=== PATIENT | female | born 1970 | race African-American/Black ===

== ENCOUNTER 2017-09-16 16:43 | Emergency (ER) | payer SELFPAY ==
[2017-09-16] MEDS ORDERED: MORPHINE 4 MG/ML SYR ONE (17:58)
[2017-09-16] MEDS ORDERED: NA CHLORIDE 0.9% 1,000 ML ONE (17:58)
[2017-09-16] MEDS ORDERED: ONDANSETRON 4 MG/2 ML VIAL ONE (17:58)
[2017-09-16 18:14] LABS: Absolute Lymphocytes (CBC) 1.6 K/uL (0.7-4.9); Absolute Monocytes 0.6 K/uL (0.1-1.3); Absolute Neutrophil 2.8 K/uL (1.8-8.0); Basophils % 0.6 % (0-1.3); Eosinophils % 7.1 % (0-4.4); Hematocrit 34.7 % (36.0-45.0); Lymphocytes % 29.3 % (15.3-44.8); MCH 23.3 pg (27.0-35.0); MCV 70.9 fL (80-100); MPV 7.6 fL (7.6-11.3); Monocytes % 10.5 % (3.3-12.3); RBC Red Blood Cell Count 4.89 M/uL (3.86-4.86)
[2017-09-16 18:27] LABS: Bicarbonate 30 mEq/L (21-31); Glucose Level 142 mg/dL (65-120); Lipase 26 U/L (22-51); Potassium 3.4 mEq/L (3.6-5.0); Sodium Level 135 mEq/L (135-145)
[2017-09-16 18:33] LABS: ALT/SGPT 22 IU/L (10-60); AST/SGOT 23 IU/L (10-42); Albumin 3.7 g/dL (3.2-5.5); Alkaline Phosphatase 76 IU/L (42-121); BUN Blood Urea Nitrogen 12 mg/dL (6-20); Bilirubin Direct < 0.1 mg/dL (0-0.2); Bilirubin Total 0.4 mg/dL (0.3-1.2); Protein, Total 7.7 g/dL (6.0-8.3)
[2017-09-16 19:04] LABS: Urine Blood NEGATIVE (NEG); Urine Glucose NEGATIVE (NEG); Urine Protein NEGATIVE (NEG); Urine Specific Gravity 1.015 (1.005-1.030)
[2017-09-16 19:24] LABS: Urine Bacteria <20 /HPF (<20); Urine Culture Reflex Order NOT NEEDED; Urine RBC <5 /HPF (NONE SEEN)
--- NOTE | 2017-09-16 19:36 | RAD REPORT ---
EXAM DESCRIPTION: CT - Abdomen Pelvis W Contrast - 09/16/2017 7:16 pm CLINICAL HISTORY: Abdominal pain with nausea and vomiting. COMPARISON: April 2016 TECHNIQUE: Computed axial tomography of the abdomen pelvis was obtained. 100 cc Isovue-300 was admin istered intravenously. Oral contrast was not requested which limits evaluation of bowel. All CT scans are performed using dose optimization technique as appropriate and may include automated exposure control or mA/KV adjustment according to patient size. FINDINGS: The liver has a diminished attenuation consistent fatty infiltration. Spleen, pancreas, adrenal and left kidney appear unremarkable. 17 millimeter right renal cyst is seen . There is no evidence of diverticulitis. The appendix is normal. A small umbilical hernia contains fat. A moderate amount stool is present throughout the colon IMPRESSION: Moderate amount of stool throughout the colon Fatty infiltration liver
--- NOTE | 2017-09-16 20:10 | ER ---
Nurse's Notes [facility] Name: Ever Cruz Age: 47 yrs Sex: Female : 1970 Arrival Date: 09/16/2017 Time: 16:48 Bed 17 Private MD: Out, [facility] Diagnosis: Nausea and vomiting Presentation: 09/16 16:55 Presenting complaint: Patient states: Nausea x 2 weeks. Seen by PCP on . aj Reports increased anxiety and inability to keep down food today. Transition of care: patient was not received from another setting of care. Onset of symptoms was September 01, 2017. Risk Assessment: Do you want to hurt yourself or someone else? Patient reports no desire to harm self or others. Initial Sepsis Screen: Does the patient meet any 2 criteria? No. Patient's initial sepsis screen is negative. Does the patient have a suspected source of infection? No. Patient's initial sepsis screen is negative. Care prior to arrival: None. 16:55 Method Of Arrival: Ambulatory 16:55 Acuity: LORNA 3 aj Triage Assessment: 16:57 General: Appears in no apparent distress. comfortable, Behavior is calm, cooperative, aj appropriate for age. Pain: Denies pain. Neuro: Level of Consciousness is awake, alert, obeys commands, Oriented to person, place, time, situation, Appropriate for age. Respiratory: Airway is patent Respiratory effort is even, unlabored, Respiratory pattern is regular, symmetrical. GI: Reports nausea, vomiting. Derm: Skin is intact, is healthy with good turgor, Skin is pink, warm \T\ dry. normal. 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 - Social history:: Smoking status: Patient/guardian denies using tobacco. - Ebola Screening: : Patient negative for fever greater than or equal to 101.5 degrees Fahrenheit, and additional compatible Ebola Virus Disease symptoms Patient denies exposure to infectious person Patient denies travel to an Ebola-affected area in the 21 days before illness onset No symptoms or risks identified at this time. Screenin:23 Abuse screen: Denies threats or abuse. Denies injuries from another. Nutritional bs1 screening: No deficits noted. Tuberculosis screening: No symptoms or risk factors identified. Fall Risk None identified. Assessment: 18:10 General: Appears in no apparent distress. ill, Behavior is calm, cooperative, mb3 appropriate for age, drowsy. Pain: Complains of pain in abdomen. Neuro: No deficits noted. Cardiovascular: No deficits noted. Respiratory: No deficits noted. GI: Abdomen is round obese, Bowel sounds present X 4 quads. Abd is soft and non tender Reports nausea, vomiting. : No signs and/or symptoms were reported regarding the genitourinary system. Derm: No signs and/or symptoms reported regarding the dermatologic system. Musculoskeletal: No signs and/or symptoms reported regarding the musculoskeletal system. 20:04 Reassessment: Patient appears in no apparent distress at this time. Patient and/or mb3 family updated on plan of care and expected duration. Pain level reassessed. Patient is alert, oriented x 3, equal unlabored respirations, skin warm/dry/pink. 20:25 Reassessment: Patient instructed on discharge instructions. Patient states bs1 understanding, and need to follow up with PCP. 20:25 Reassessment: Patient appears in no apparent distress at this time. Patient and/or bs1 family updated on plan of care and expected duration. Pain level reassessed. Patient is alert, oriented x 3, equal unlabored respirations, skin warm/dry/pink. Patient states feeling better. Vital Signs: 16:57 BP 155 / 88; Pulse 93; Resp 15; Temp 98.8; Pulse Ox 98% on R/A; Weight 122.47 kg; aj Height 5 ft. 7 in. (170.18 cm); 18:54 BP 138 / 82; Pulse 88; Resp 16; Pulse Ox 97% on R/A; mb3 20:20 BP 136 / 85; Pulse 76; Resp 16 S; Temp 97.9(O); Pulse Ox 97% on R/A; Pain 3/10; bs1 16:57 Body Mass Index 42.29 (122.47 kg, 170.18 cm) aj ED Course: 16:48 Patient arrived in ED. sb2 16:49 Out, [facility] is Private Physician. sb2 16:56 Triage completed. aj 16:57 Arm band placed on left wrist. Patient placed in waiting room, Patient notified of wait aj time. 17:36 Blayne Castaneda, WES is PHCP. pm1 17:36 Remington Martinez MD is Attending Physician. pm1 17:52 Joel Gibson, VASILIY is Primary Nurse. mb3 18:00 Inserted saline lock: 22 gauge in right antecubital area, using aseptic technique. mb3 19:16 CT completed. Patient moved to CT via wheelchair. Patient moved back from CT. mw3 19:17 CT Abd/Pelvis - W/Contrast: IV contrast only In Process Unspecified. EDMS 19:30 Patient has correct armband on for positive identification. Bed in low position. Call bs1 light in reach. Side rails up X 1. Pulse ox on. NIBP on. 20:24 No provider procedures requiring assistance completed. IV discontinued, bleeding bs1 controlled, No redness/swelling at site. Pressure dressing applied. Administered Medications: 18:05 Drug: NS 0.9% 1000 ml Route: IV; Rate: 1000 ml; Site: right antecubital; mb3 20:26 Follow up: IV Status: Completed infusion bs1 18:05 Drug: Zofran 4 mg Route: IVP; Site: right antecubital; mb3 20:27 Follow up: Response: No adverse reaction bs1 18:05 Drug: morphine 4 mg Route: IVP; Site: right antecubital; mb3 20:27 Follow up: Response: No adverse reaction bs1 Outcome: 20:10 Discharge ordered by . pm1 20:24 Discharged to home ambulatory, with significant other. bs1 20:24 Condition: stable 20:24 Discharge instructions given to patient, Instructed on discharge instructions, follow up and referral plans. medication usage, Demonstrated understanding of instructions, follow-up care, medications, Prescriptions given X 3. 20:27 Patient left the ED. bs1 Signatures: Dispatcher [employer] EDYvonne Pryor, RN RN Blayne Reyes, GENERAL FOUNDRY WORKER GENERAL FOUNDRY WORKER pm1 Yolie White RN RN bs1 Luz Hamilton sb2 Joel Gibson RN RN mb3 Leatha Luna mw3
--- NOTE | 2017-09-16 20:11 | EDPHYS ---
Physician Documentation [facility] Name: Ever Cruz Age: 47 yrs Sex: Female : 1970 Arrival Date: 09/16/2017 Time: 16:48 Bed 17 Private MD: Out, [facility] ED Physician Remington Martinez HPI: 09/16 18:00 This 47 yrs old Black Female presents to ER via Ambulatory with complaints of pm1 Nausea/Vomiting. 18:00 The patient presents to the emergency department with nausea, vomiting. Onset: The pm1 symptoms/episode began/occurred 2 week(s) ago. Possible causes: unknown. The symptoms are aggravated by food , The symptoms are alleviated by nothing. Associated signs and symptoms: Pertinent positives: abdominal pain, nausea, vomiting, Pertinent negatives: dysuria, fever. Severity of symptoms: in the emergency department the symptoms are unchanged. The patient has not experienced similar symptoms in the past. The patient has been recently seen by a physician: the patient's primary care provider, 2 day(s) ago, with similar presenting complaints, No medications given to the patient. 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 - Social history:: Smoking status: Patient/guardian denies using tobacco. - Ebola Screening: : Patient negative for fever greater than or equal to 101.5 degrees Fahrenheit, and additional compatible Ebola Virus Disease symptoms Patient denies exposure to infectious person Patient denies travel to an Ebola-affected area in the 21 days before illness onset No symptoms or risks identified at this time. ROS: 18:00 Constitutional: Negative for fever, chills, and weight loss, Eyes: Negative for injury, pm1 pain, redness, and discharge, ENT: Negative for injury, pain, and discharge, Neck: Negative for injury, pain, and swelling, Cardiovascular: Negative for chest pain, palpitations, and edema, Respiratory: Negative for shortness of breath, cough, wheezing, and pleuritic chest pain. 18:00 Back: Negative for injury and pain, : Negative for injury, bleeding, discharge, and swelling, MS/Extremity: Negative for injury and deformity, Skin: Negative for injury, rash, and discoloration, Neuro: Negative for headache, weakness, numbness, tingling, and seizure. 18:00 Abdomen/GI: Positive for abdominal pain, nausea and vomiting, Negative for diarrhea, constipation. Exam: 18:00 Constitutional: This is a well developed, well nourished patient who is awake, alert, pm1 and in no acute distress. Head/Face: Normocephalic, atraumatic. Eyes: Pupils equal round and reactive to light, extra-ocular motions intact. Lids and lashes normal. Conjunctiva and sclera are non-icteric and not injected. Cornea within normal limits. Periorbital areas with no swelling, redness, or edema. ENT: Nares patent. No nasal discharge, no septal abnormalities noted. Tympanic membranes are normal and external auditory canals are clear. Oropharynx with no redness, swelling, or masses, exudates, or evidence of obstruction, uvula midline. Mucous membranes moist. Neck: Trachea midline, no thyromegaly or masses palpated, and no cervical lymphadenopathy. Supple, full range of motion without nuchal rigidity, or vertebral point tenderness. No Meningismus. Chest/axilla: Normal chest wall appearance and motion. Nontender with no deformity. No lesions are appreciated. Cardiovascular: Regular rate and rhythm with a normal S1 and S2. No gallops, murmurs, or rubs. Normal PMI, no JVD. No pulse deficits. Respiratory: Lungs have equal breath sounds bilaterally, clear to auscultation and percussion. No rales, rhonchi or wheezes noted. No increased work of breathing, no retractions or nasal flaring. Abdomen/GI: Soft, non-tender, with normal bowel sounds. No distension or tympany. No guarding or rebound. No evidence of tenderness throughout. Back: No spinal tenderness. No costovertebral tenderness. Full range of motion. Skin: Warm, dry with normal turgor. Normal color with no rashes, no lesions, and no evidence of cellulitis. MS/ Extremity: Pulses equal, no cyanosis. Neurovascular intact. Full, normal range of motion. 18:00 Neuro: Orientation: is normal, Motor: moves all fours, strength is normal, strength is 5/5 in all extremities, Gait: is steady, at a normal pace, without difficulty. Vital Signs: 16:57 BP 155 / 88; Pulse 93; Resp 15; Temp 98.8; Pulse Ox 98% on R/A; Weight 122.47 kg; aj Height 5 ft. 7 in. (170.18 cm); 18:54 BP 138 / 82; Pulse 88; Resp 16; Pulse Ox 97% on R/A; mb3 20:20 BP 136 / 85; Pulse 76; Resp 16 S; Temp 97.9(O); Pulse Ox 97% on R/A; Pain 3/10; bs1 16:57 Body Mass Index 42.29 (122.47 kg, 170.18 cm) aj MDM: 17:36 Patient medically screened. pm1 20:08 Data reviewed: vital signs. Data interpreted: Pulse oximetry: on room air is 97 %. pm1 Interpretation: normal. Counseling: I had a detailed discussion with the patient and/or guardian regarding: the historical points, exam findings, and any diagnostic results supporting the discharge/admit diagnosis, lab results, radiology results, the need for outpatient follow up, to return to the emergency department if symptoms worsen or persist or if there are any questions or concerns that arise at home. 20:08 ED course: Patient nausea resolved. Patient feels hungry and ready to go eat. pm1 09/16 17:48 Order name: Basic Metabolic Panel; Complete Time: 19:27 pm09/16 17:48 Order name: CBC with Diff; Complete Time: 19: pm09/16 17:48 Order name: Creatinine for Radiology; Complete Time: 19:27 pm09/16 17:48 Order name: Hepatic Function; Complete Time: 19:27 pm09/16 17:48 Order name: Lipase; Complete Time: 19:27 pm09/16 17:48 Order name: Urine Microscopic Only; Complete Time: 19:27 pm1 09/16 17:48 Order name: Urine Test (obtain specimen) pm1 09/16 17:48 Order name: IV Saline Lock; Complete Time: 18:23 pm1 09/16 17:48 Order name: CT Abd/Pelvis - W/Contrast: IV contrast only; Complete Time: 19:40 pm1 09/16 18:59 Order name: Urine Dipstick--Ancillary (enter results); Complete Time: 19:27 eb 09/16 18:59 Order name: Urine --Ancillary (enter results); Complete Time: 19:27 eb 09/16 17:48 Order name: Labs collected and sent; Complete Time: 18:23 pm1 09/16 17:48 Order name: Urine Dipstick-Ancillary (obtain specimen) pm1 Administered Medications: 18:05 Drug: NS 0.9% 1000 ml Route: IV; Rate: 1000 ml; Site: right antecubital; mb3 20:26 Follow up: IV Status: Completed infusion bs1 18:05 Drug: Zofran 4 mg Route: IVP; Site: right antecubital; mb3 20:27 Follow up: Response: No adverse reaction bs1 18:05 Drug: morphine 4 mg Route: IVP; Site: right antecubital; mb3 20:27 Follow up: Response: No adverse reaction bs1 Disposition: 09/17 07:58 Co-signature as Attending Physician, Remington Martinez MD. Disposition: 09/16/17 20:10 Discharged to Home. Impression: Nausea and vomiting. - Condition is Stable. - Discharge Instructions: Nausea and Vomiting, Viral Gastroenteritis. - Prescriptions for Zofran 4 mg Oral Tablet - take 1 tablet by ORAL route every 8 hours As needed; 20 tablet. Phenergan 25 mg Rectal Suppository - insert 1 suppository by RECTAL route every 6 hours As needed; 12 suppository. Bentyl 20 mg Oral Tablet - take 1 tablet by ORAL route every 6 hours As needed; 20 tablet. - Medication Reconciliation Form, Thank You Letter, Antibiotic Education form. - Follow up: Emergency Department; When: As needed; Reason: Worsening of condition. Follow up: Private Physician; When: 2 - 3 days; Reason: Recheck today's complaints, Continuance of care, Re-evaluation by your physician. - Problem is new. - Symptoms have improved. Signatures: Dispatcher [employer] EDMS Yvonne Wisdom RN RN Blayne Reyes, WES FRENCH COMBER pm1 Remington Martinez MD MD gs Salazar, Brittany RN RN bs1 Joel Gibson RN RN mb3 Corrections: (The following items were deleted from the chart) 09/16 20:27 20:10 09/16/2017 20:10 Discharged to Home. Impression: Nausea and vomiting. Condition bs1 is Stable. Forms are Medication Reconciliation Form, Thank You Letter, Antibiotic Education, Prescription Opioid Use. Follow up: Emergency Department; When: As needed; Reason: Worsening of condition. Follow up: Private Physician; When: 2 - 3 days; Reason: Recheck today's complaints, Continuance of care, Re-evaluation by your physician. Problem is new. Symptoms have improved. pm1
[2017-09-16 21:08] VITALS: O2SAT 97
[2017-09-16 21:09] VITALS: BP 136/85; TEMP 97.9
== END 2017-09-16 20:27 | disposition home or self-care (01) ==
LOC: ER 16:43
DX: R11.2 Nausea with vomiting, unspecified (principal); I10 Essential (primary) hypertension; E11.9 Type 2 diabetes mellitus without complications
CPT/HCPCS: 36415; 74177; 80048; 80076; 81003; 81015; 81025; 83690; 85025; 96361; 96374; 96375; 99284; J2405; J7030; Q9967

== ENCOUNTER 2018-05-13 21:52 | Emergency (ER) | payer SELFPAY ==
[2018-05-13 22:35] LABS: Absolute Lymphocytes (CBC) 1.4 K/uL (0.7-4.9); Absolute Monocytes 0.4 K/uL (0.1-1.3); Basophils % 0.5 % (0-1.3); Eosinophils % 2.5 % (0-4.4); Hematocrit 36.1 % (36.0-45.0); Lymphocytes % 19.9 % (15.3-44.8); MPV 7.6 fL (7.6-11.3); Monocytes % 5.7 % (3.3-12.3); RBC Red Blood Cell Count 4.88 M/uL (3.86-4.86)
[2018-05-13 22:40] LABS: Protime INR 1.01
[2018-05-13 22:53] LABS: ALT/SGPT 17 U/L (12-78); AST/SGOT 8 U/L (15-37); Albumin 3.1 g/dL (3.4-5.0); Alkaline Phosphatase 119 U/L (45-117); BUN Blood Urea Nitrogen 14 mg/dL (7-18); Bicarbonate 27 mmol/L (21-32); Bilirubin Direct < 0.1 mg/dL (0-0.2); Bilirubin Total 0.2 mg/dL (0.2-1.0); Glucose Level 298 mg/dL (74-106); Magnesium 2.2 mg/dL (1.8-2.4); NT PRO-BNP 50 pg/mL (<125); Potassium 3.9 mmol/L (3.5-5.1); Protein, Total 7.5 g/dL (6.4-8.2); Sodium Level 136 mmol/L (136-145); Troponin (Emerg Dept Use Only) < 0.02 ng/mL (0.0-0.045)
[2018-05-13] MEDS ORDERED: LORAZEPAM 0.5 MG TABLET ONE (22:56)
--- NOTE | 2018-05-13 23:32 | EDPHYS ---
Physician Documentation [facility] Name: Ever Cruz Age: 47 yrs Sex: Female : 1970 Arrival Date: 05/13/2018 Time: 21:54 Bed 16 Private MD: ED Physician Luis Zamarripa HPI: 05/13 22:38 This 47 yrs old Black Female presents to ER via Ambulatory with complaints of Chest snw Pain. 22:38 The patient or guardian reports chest pain that is located primarily in the anterior snw chest wall, bilaterally. Onset: suddenly, today, and became persistent. The pain does not radiate. Associated signs and symptoms: Pertinent positives: nausea. The chest pain is described as aching. Duration: The patient or guardian reports a single episode. Severity of pain: At its worst the pain was moderate. The patient has experienced similar episodes in the past, multiple times. It is unknown whether or not the patient has recently seen a physician. Historical: - Allergies: 21:57 No Known Allergies; aj1 - PMHx: 21:57 Diabetes - NIDDM; Hypertension; knee pain; aj1 ROS: 22:38 Constitutional: Negative for fever, chills, and weight loss, Eyes: Negative for injury, snw pain, redness, and discharge, ENT: Negative for injury, pain, and discharge, Neck: Negative for injury, pain, and swelling, Cardiovascular: Negative for palpitations and edema, positive for chest pain Respiratory: Negative for shortness of breath, cough, wheezing, and pleuritic chest pain, Abdomen/GI: Negative for abdominal pain, nausea, vomiting, diarrhea, and constipation, Back: Negative for injury and pain, : Negative for injury, bleeding, discharge, and swelling, MS/Extremity: Negative for injury and deformity, Skin: Negative for injury, rash, and discoloration, Neuro: Negative for headache, weakness, numbness, tingling, and seizure. Exam: 22:37 Constitutional: This is a well developed, well nourished patient who is awake, alert, snw and in no acute distress. Head/Face: Normocephalic, atraumatic. Eyes: Pupils equal round and reactive to light, extra-ocular motions intact. Lids and lashes normal. Conjunctiva and sclera are non-icteric and not injected. Cornea within normal limits. Periorbital areas with no swelling, redness, or edema. ENT: Nares patent. No nasal discharge, no septal abnormalities noted. Tympanic membranes are normal and external auditory canals are clear. Oropharynx with no redness, swelling, or masses, exudates, or evidence of obstruction, uvula midline. Mucous membranes moist. Neck: Trachea midline, no thyromegaly or masses palpated, and no cervical lymphadenopathy. Supple, full range of motion without nuchal rigidity, or vertebral point tenderness. No Meningismus. Chest/axilla: Normal chest wall appearance and motion. Nontender with no deformity. No lesions are appreciated. Cardiovascular: Regular rate and rhythm with a normal S1 and S2. No gallops, murmurs, or rubs. Normal PMI, no JVD. No pulse deficits. Respiratory: Lungs have equal breath sounds bilaterally, clear to auscultation and percussion. No rales, rhonchi or wheezes noted. No increased work of breathing, no retractions or nasal flaring. Abdomen/GI: Soft, non-tender, with normal bowel sounds. No distension or tympany. No guarding or rebound. No evidence of tenderness throughout. Back: No spinal tenderness. No costovertebral tenderness. Full range of motion. Skin: Warm, dry with normal turgor. Normal color with no rashes, no lesions, and no evidence of cellulitis. MS/ Extremity: Pulses equal, no cyanosis. Neurovascular intact. Full, normal range of motion. Neuro: Awake and alert, GCS 15, oriented to person, place, time, and situation. Cranial nerves II-XII grossly intact. Motor strength 5/5 in all extremities. Sensory grossly intact. Cerebellar exam normal. Normal gait. 22:37 Psych: Behavior/mood is pleasant, anxious, Affect is animated, Oriented to person, place, time. Vital Signs: 21:57 BP 146 / 87; Pulse 97; Resp 18; Temp 98.8; Pulse Ox 97% on R/A; Weight 117.93 kg (R); aj1 Height 5 ft. 7 in. (170.18 cm) (R); Pain 9/10; 23:00 BP 144 / 76; Pulse 94; Resp 16; Pulse Ox 95% on R/A; jb4 21:57 Body Mass Index 40.72 (117.93 kg, 170.18 cm) aj1 MDM: 22:04 Patient medically screened. ajit 23:32 The patient was not given aspirin in the Emergency Department. Patient reports taking snw aspirin within the past 24 hours. Data reviewed: vital signs, nurses notes. Data interpreted: Pulse oximetry: on room air is 97 %. Interpretation: acceptable. Counseling: I had a detailed discussion with the patient and/or guardian regarding: the historical points, exam findings, and any diagnostic results supporting the discharge/admit diagnosis, the presence of at least one elevated blood pressure reading (>120/80) during this emergency department visit, lab results, radiology results, the need for outpatient follow up, to return to the emergency department if symptoms worsen or persist or if there are any questions or concerns that arise at home. Response to treatment: the patient's symptoms have markedly improved after treatment, and as a result, I will discharge patient. 05/13 22:00 Order name: Basic Metabolic Panel snw 05/13 22:00 Order name: CBC with Diff snw 05/13 22:00 Order name: LFT's snw 05/13 22:00 Order name: Magnesium snw 05/13 22:00 Order name: NT PRO-BNP snw 05/13 22:00 Order name: PT-INR; Complete Time: 22:47 snw 05/13 22:00 Order name: Troponin (emerg Dept Use Only); Complete Time: 22:56 snw 05/13 22:00 Order name: XRAY Chest (1 view) snw 05/13 22:02 Order name: Basic Metabolic Panel; Complete Time: 22:56 EDMS 05/13 22:02 Order name: CBC with Automated Diff; Complete Time: 22:40 EDMS 05/13 22:02 Order name: Liver (Hepatic) Function; Complete Time: 22:56 EDMS 05/13 22:02 Order name: Magnesium; Complete Time: 22:56 EDMS 05/13 22:02 Order name: NT PRO-BNP; Complete Time: 22:56 EDMS 05/13 22:00 Order name: EKG; Complete Time: 22:02 snw 05/13 22:00 Order name: Cardiac monitoring; Complete Time: 22:10 snw 05/13 22:00 Order name: EKG - Nurse/Tech; Complete Time: 22:09 snw 05/13 22:00 Order name: IV Saline Lock; Complete Time: 22:40 snw 05/13 22:00 Order name: Labs collected and sent; Complete Time: 22:41 snw 05/13 22:00 Order name: O2 Per Protocol; Complete Time: 22:10 snw 05/13 22:00 Order name: O2 Sat Monitoring; Complete Time: 22:10 snw Administered Medications: 22:49 Drug: Ativan 1 mg Route: PO; jb4 23:50 Follow up: Response: No adverse reaction; Marked relief of symptoms jb4 Disposition: 05/14 09:04 Co-signature as Attending Physician, Luis Zamarripa MD I agree with the assessment and ajit plan of care. Disposition: 05/13/18 23:31 Discharged to Home. Impression: Chest pain, unspecified. - Condition is Stable. - Discharge Instructions: Nonspecific Chest Pain, Hypertension, Aspirin and Your Heart. - Medication Reconciliation Form, Thank You Letter, Antibiotic Education, Prescription Opioid Use, Work release form form. - Follow up: Emergency Department; When: As needed; Reason: Worsening of condition. Follow up: Private Physician; When: 1 - 2 days; Reason: Recheck today's complaints, Continuance of care, Re-evaluation by your physician. Signatures: Dispatcher [employer] Tonya Alcantara RN RN aj1 Luis Zamarripa MD MD cha Therrien, Shelly, HYDRO GENERATION SUPERVISOR-C HYDRO GENERATION SUPERVISOR-Csnw Den Worthy RN RN jb4 Corrections: (The following items were deleted from the chart) 05/13 23:51 23:31 05/13/2018 23:31 Discharged to Home. Impression: Chest pain, unspecified. jb4 Condition is Stable. Forms are Medication Reconciliation Form, Thank You Letter, Antibiotic Education, Prescription Opioid Use. Follow up: Emergency Department; When: As needed; Reason: Worsening of condition. Follow up: Private Physician; When: 1 - 2 days; Reason: Recheck today's complaints, Continuance of care, Re-evaluation by your physician. snw
--- NOTE | 2018-05-13 23:32 | ER ---
Nurse's Notes [facility] Name: Ever Cruz Age: 47 yrs Sex: Female : 1970 Arrival Date: 05/13/2018 Time: 21:54 Bed 16 Private MD: Diagnosis: Chest pain, unspecified Presentation: 05/13 21:55 Presenting complaint: Patient states: Substernal chest pain that started today. Patient aj1 states that she had a similar episode one week ago. reports dizziness, nausea. Denies SOB, vomiting. Transition of care: patient was not received from another setting of care. Onset of symptoms was May 13, 2018. Risk Assessment: Do you want to hurt yourself or someone else? Patient reports no desire to harm self or others. Initial Sepsis Screen: Does the patient meet any 2 criteria? No. Patient's initial sepsis screen is negative. Does the patient have a suspected source of infection? No. Patient's initial sepsis screen is negative. Care prior to arrival: None. 21:55 Method Of Arrival: Ambulatory aj 21:55 Acuity: LORNA 3 aj1 Triage Assessment: 21:57 General: Appears in no apparent distress. uncomfortable, Behavior is calm, cooperative, aj1 appropriate for age. Pain: Complains of pain in mid-sternal area Pain radiates to chest. Pain: Pain currently is 9 out of 10 on a pain scale. EENT:. Neuro: Level of Consciousness is awake, alert, obeys commands. Cardiovascular: Reports chest pain. Historical: - Allergies: 21:57 No Known Allergies; aj1 - PMHx: 21:57 Diabetes - NIDDM; Hypertension; knee pain; aj1 Screenin:00 Abuse screen: Denies threats or abuse. Nutritional screening: No deficits noted. jb4 Tuberculosis screening: No symptoms or risk factors identified. Fall Risk None identified. Assessment: 22:00 General: Appears in no apparent distress. uncomfortable, Behavior is cooperative, jb4 anxious. Pain: Complains of pain in chest Pain does not radiate. Pain currently is 10 out of 10 on a pain scale. Quality of pain is described as stabbing, Pain began 1 hour ago. Is continuous. Neuro: Level of Consciousness is awake, alert, obeys commands, Oriented to person, place, time, situation. Cardiovascular: Heart tones S1 S2 present Patient's skin is warm and dry. Rhythm is sinus rhythm. Respiratory: Airway is patent Respiratory effort is even, unlabored, Breath sounds are clear bilaterally. GI: No signs and/or symptoms were reported involving the gastrointestinal system. : No signs and/or symptoms were reported regarding the genitourinary system. EENT: No signs and/or symptoms were reported regarding the EENT system. Derm: Skin is intact, Skin is pink, warm \T\ dry. Musculoskeletal: Circulation, motion, and sensation intact. 23:00 Reassessment: Patient appears in no apparent distress at this time. Patient and/or jb4 family updated on plan of care and expected duration. Pain level reassessed. Patient is alert, oriented x 3, equal unlabored respirations, skin warm/dry/pink. Pt appears more relaxed. Patient states feeling better. Patient states symptoms have improved. 23:48 Reassessment: Patient appears in no apparent distress at this time. Patient and/or jb4 family updated on plan of care and expected duration. Pain level reassessed. Patient is alert, oriented x 3, equal unlabored respirations, skin warm/dry/pink. Vital Signs: 21:57 BP 146 / 87; Pulse 97; Resp 18; Temp 98.8; Pulse Ox 97% on R/A; Weight 117.93 kg (R); aj1 Height 5 ft. 7 in. (170.18 cm) (R); Pain 9/10; 23:00 BP 144 / 76; Pulse 94; Resp 16; Pulse Ox 95% on R/A; jb4 21:57 Body Mass Index 40.72 (117.93 kg, 170.18 cm) aj1 ED Course: 21:54 Patient arrived in ED. aj1 21:56 Triage completed. aj1 21:57 Arm band placed on Patient placed in an exam room. aj1 21:59 [facility]C [facility] snw 21:59 Luis Zamarripa MD is Attending Physician. snw 22:00 Patient has correct armband on for positive identification. Placed in gown. Bed in low jb4 position. Call light in reach. Side rails up X 1. secured entrance monitor on. Pulse ox on. NIBP on. 22:01 Den Worthy RN is Primary Nurse. jb4 22:20 Initial lab(s) drawn, by me, sent to lab. Inserted saline lock: 20 gauge in left jb4 antecubital area, using aseptic technique. Blood collected. Patient maintains SpO2 saturation greater than 95% on room air. 22:21 XRAY Chest (1 view) In Process Unspecified. EDMS 23:50 No provider procedures requiring assistance completed. IV discontinued, intact, jb4 bleeding controlled. Administered Medications: 22:49 Drug: Ativan 1 mg Route: PO; jb4 23:50 Follow up: Response: No adverse reaction; Marked relief of symptoms jb4 Outcome: 23:31 Discharge ordered by . tyrel 23:50 Discharged to home ambulatory, with significant other. jb4 23:50 Condition: stable 23:50 Discharge instructions given to patient, significant other, Instructed on discharge instructions, follow up and referral plans. Demonstrated understanding of instructions, follow-up care. 23:51 Patient left the ED. jb4 Signatures: Dispatcher [employer] EDTonya Salazar, RN RN aj1 Carolyn Wahl, GARBAGE PICK UP MAN-C GARBAGE PICK UP MAN-Csnw Den Worthy, RN RN jb4
[2018-05-14 00:42] VITALS: BP 144/76; O2SAT 95
[2018-05-14 00:43] VITALS: TEMP 98.8
--- NOTE | 2018-05-14 07:21 | EKG ---
Test Date: 2018-05-13 Test Time: 22:07:32 Supervisor [place]: ORQUIDEA MEASUREMENT RESULTS: Intervals: Rate: 89 WI: 124 QRSD: 82 QT: 342 QTc: 416 [place]: P: 63 WI: 124 QRS: 58 T: 51 INTERPRETIVE STATEMENTS: Normal sinus rhythm Minimal voltage criteria for LVH, may be normal variant Borderline ECG Compared to ECG 05/04/2017 08:21:46 Left ventricular hypertrophy now present Sinus tachycardia no longer present Electronically Signed On 05-14-18 07:20:33 PUBLIC ADDRESS ANNOUNCER by Melvin Knox
--- NOTE | 2018-05-14 08:22 | RAD REPORT ---
EXAM DESCRIPTION: RAD - Chest Single View - 05/13/2018 10:21 pm CLINICAL HISTORY: Substernal chest pain COMPARISON: May 04 TECHNIQUE: AP portable chest image was obtained 2218 hours . FINDINGS: Lung volumes are low. No peripheral mass or consolidation. No failure or volume overload. Heart and vasculature are normal. No measurable pleural effusion and no pneumothorax. No acute bony a bnormality seen. No acute aortic findings suspected. IMPRESSION: No acute cardiopulmonary process. No suspicious change from comparison.
== END 2018-05-13 23:51 | disposition home or self-care (01) ==
LOC: ER 21:52
DX: R07.9 Chest pain, unspecified (principal); E11.9 Type 2 diabetes mellitus without complications; I10 Essential (primary) hypertension
CPT/HCPCS: 36415; 71045; 80048; 80076; 83735; 83880; 84484; 85025; 85610; 93005; 99285

== ENCOUNTER 2018-09-26 08:00 | Emergency (ER) | payer SELFPAY ==
[2018-09-26] MEDS ORDERED: ASPIRIN 81 MG CHEWABLE TABLET ONE (08:38)
[2018-09-26 08:45] LABS: Absolute Lymphocytes (CBC) 1.6 K/uL (0.7-4.9); Basophils % 0.6 % (0-1.3); Eosinophils % 2.5 % (0-4.4); Hematocrit 35.6 % (36.0-45.0); Lymphocytes % 26.3 % (15.3-44.8); MPV 7.8 fL (7.6-11.3); Monocytes % 6.8 % (3.3-12.3); RBC Red Blood Cell Count 4.94 M/uL (3.86-4.86)
--- NOTE | 2018-09-26 08:47 | RAD REPORT ---
EXAM DESCRIPTION: RAD - Chest Single View - 09/26/2018 8:42 am CLINICAL HISTORY: CHEST PAIN Chest pain. COMPARISON: Chest Single View dated 05/13/2018; Chest Single View dated 05/04/2017; Chest Single View d ated 01/14/2017; CHEST SINGLE VIEW dated 10/30/2013 FINDINGS: Portable technique limits examination quality. The lungs are grossly clear. The heart is normal in size. No displaced fractures. IMPRESSION: No acute intrathoracic process suspected.
[2018-09-26 09:13] LABS: ALT/SGPT 23 U/L (12-78); AST/SGOT 16 U/L (15-37); Albumin 3.1 g/dL (3.4-5.0); Alkaline Phosphatase 90 U/L (45-117); BUN Blood Urea Nitrogen 13 mg/dL (7-18); Bicarbonate 29 mmol/L (21-32); Bilirubin Direct < 0.1 mg/dL (0-0.2); Bilirubin Total 0.4 mg/dL (0.2-1.0); Glucose Level 207 mg/dL (74-106); NT PRO-BNP 64 pg/mL (<125); Potassium 4.1 mmol/L (3.5-5.1); Protein, Total 7.5 g/dL (6.4-8.2); Sodium Level 138 mmol/L (136-145)
[2018-09-26] MEDS ORDERED: ONDANSETRON 4 MG/2 ML VIAL ONE ×2 (09:33→12:20)
[2018-09-26] MEDS ORDERED: MORPHINE 4 MG/ML SYR ONE ×2 (09:33→12:12)
[2018-09-26 10:03] LABS: Protime INR 0.99
--- NOTE | 2018-09-26 12:23 | EKG ---
Test Date: 2018-09-26 Test Time: 11:56:22 Video Arcade Manager: AG/T MEASUREMENT RESULTS: Intervals: Rate: 73 CA: 140 QRSD: 84 QT: 374 QTc: 412 [place]: P: 48 CA: 140 QRS: 29 T: 22 INTERPRETIVE STATEMENTS: Normal sinus rhythm Normal ECG Compared to ECG 09/26/2018 08:09:54 No significant changes Electronically Signed On 09-26-18 12:22:28 CDT by Melvin Knox
--- NOTE | 2018-09-26 12:25 | EKG ---
Test Date: 2018-09-26 Test Time: 08:09:54 Tugboat Mate: GORDON MEASUREMENT RESULTS: Intervals: Rate: 81 CT: 130 QRSD: 86 QT: 358 QTc: 415 [place]: P: 61 CT: 130 QRS: 38 T: 31 INTERPRETIVE STATEMENTS: Normal sinus rhythm Normal ECG Compared to ECG 05/13/2018 22:07:32 Left ventricular hypertrophy no longer present Electronically Signed On 09-26-18 12:23:45 CDT by Melvin Knox
--- NOTE | 2018-09-26 12:39 | ER ---
Nurse's Notes [facility] Name: Ever Cruz Age: 48 yrs Sex: Female : 1970 Arrival Date: 09/26/2018 Time: 08:02 Bed 3 Private MD: Diagnosis: Chest pain, unspecified Presentation: 09/26 08:04 Presenting complaint: Patient states: mid-sternal and right-sided chest pain that began aa5 3 days ago. Pt states "the pain was coming and going the first day and now it's more constant". Pt reports SOB, denies nausea/vomiting. 08:04 Transition of care: patient was not received from another setting of care. Onset of aa5 symptoms was September 2018. Risk Assessment: Do you want to hurt yourself or someone else? Patient reports no desire to harm self or others. Care prior to arrival: None. 08:04 Acuity: LORNA 3 aa5 08:04 Method Of Arrival: Ambulatory aa5 08:28 Initial Sepsis Screen: Does the patient meet any 2 criteria? No. Patient's initial sv sepsis screen is negative. Does the patient have a suspected source of infection? No. Patient's initial sepsis screen is negative. Historical: - Allergies: 08:16 No Known Allergies; aa5 - Home Meds: 08:16 metformin 1,000 mg Oral tr24 twice a day [Active]; glimepiride 4 mg Oral tab twice a aa5 day [Active]; lisinopril-hydrochlorothiazide 20-12.5 mg Oral tab once daily [Active]; amlodipine oral [Active]; gabapentin 100 mg Oral cap twice a day [Active]; cyclobenzaprine 5 mg Oral tab as needed [Active]; - PMHx: 08:16 Diabetes - NIDDM; Hypertension; knee pain; aa5 - Immunization history:: Flu vaccine status is unknown. - Social history:: Smoking status: Patient/guardian denies using tobacco. - Ebola Screening: : No symptoms or risks identified at this time. Screenin:15 Abuse screen: Denies threats or abuse. Denies injuries from another. Nutritional sv screening: No deficits noted. Tuberculosis screening: No symptoms or risk factors identified. Fall Risk None identified. Assessment: 08:10 Also complains of shortness of breath. General: Appears in no apparent distress. sv uncomfortable, obese, well groomed, well developed, Behavior is calm, cooperative, appropriate for age. Pain: Complains of pain in anterior aspect of right upper chest, mid-sternal area and right breast Pain does not radiate. Pain currently is 5 out of 10 on a pain scale. Quality of pain is described as pressure, Pain began 2-3 days ago. Is continuous, Alleviated by nothing. Noted to be resistant to movement, Current management - is no interventions. Neuro: Level of Consciousness is awake, alert, obeys commands, Oriented to person, place, time, situation, Moves all extremities. Full function Gait is steady. Cardiovascular: Patient's skin is warm and dry. Pulses are 3+ in right radial artery and left radial artery Rhythm is sinus rhythm. Respiratory: Reports shortness of breath on exertion cough that is non-productive, pain with cough Airway is patent Respiratory effort is even, unlabored, Respiratory pattern is regular, symmetrical. Derm: Skin is normal. Musculoskeletal: Range of motion: intact in all extremities. 09:00 Reassessment: Patient appears in no apparent distress at this time. Patient and/or hb family updated on plan of care and expected duration. Pain level reassessed. Patient is alert, oriented x 3, equal unlabored respirations, skin warm/dry/pink. 11:11 Reassessment: Patient appears in no apparent distress at this time. Patient and/or sv family updated on plan of care and expected duration. Pain level reassessed. Patient is alert, oriented x 3, equal unlabored respirations, skin warm/dry/pink. 12:10 Reassessment: Pt reports chest pain 12/11, TRAVEL GUIDE Cherelle notified, repeat morphine hb administered as ordered. Repeat EKG completed and troponin drawn. 13:00 Reassessment: Patient appears in no apparent distress at this time. Patient and/or sv family updated on plan of care and expected duration. Pain level reassessed. Patient is alert, oriented x 3, equal unlabored respirations, skin warm/dry/pink. Vital Signs: 08:11 BP 143 / 83; Pulse 85; Resp 14; Temp 98; Pulse Ox 99% ; sv 09:15 BP 137 / 80; Pulse 76; Resp 15; Pulse Ox 97% on R/A; Pain 8/10; hb 11:11 BP 122 / 77; Pulse 82 MON; Resp 18; Pulse Ox 96% ; sv 12:08 BP 125 / 81; Pulse 79; Resp 17; Pulse Ox 99% on R/A; Pain 9/10; hb 13:00 Pain 5/10; sv 13:00 Pain 5/10; sv 11:11 Sinus Rhythm sv ED Course: 08:02 Patient arrived in ED. as 08:04 Arm band placed on Patient placed in an exam room, on a stretcher. aa5 08:08 Cherelle Leigh FNP-C is [facility]. kb 08:08 Luis Gee MD is Attending Physician. kb 08:15 Patient has correct armband on for positive identification. Placed in gown. Bed in low sv position. Call light in reach. Side rails up X 1. Adult w/ patient. quality assurance monitor on. Pulse ox on. NIBP on. Door closed. Warm blanket given. Head of bed elevated. 08:15 Initial lab(s) drawn, by me, sent to lab. Inserted saline lock: 22 gauge in right sv forearm, using aseptic technique. ,using aseptic technique. diffusics Blood collected. Flushed right forearm with 5 ml normal saline. 08:15 Patient maintains SpO2 saturation greater than 95% on room air. sv 08:19 Triage completed. aa5 08:26 Hannah Fisher, RN is Primary Nurse. sv 08:33 Awaiting lab results, Awaiting radiology results. sv 08:36 XRAY Chest (1 view) In Process Unspecified. EDMS 13:06 No provider procedures requiring assistance completed. IV discontinued, intact, hb bleeding controlled, No redness/swelling at site. Pressure dressing applied. Administered Medications: 08:25 Drug: Aspirin Chewable Tablet 324 mg Route: PO; hb 09:37 Follow up: Response: No adverse reaction hb 09:22 Drug: morphine 4 mg Route: IVP; Site: right forearm; hb 10:05 Follow up: Response: No adverse reaction hb 09:22 Drug: Zofran 4 mg Route: IVP; Site: right forearm; hb 10:05 Follow up: Response: No adverse reaction hb 12:07 Drug: morphine 4 mg Route: IVP; Site: right forearm; hb 13:00 Follow up: Pain 5/10 Adult; Response: No adverse reaction; Pain is decreased sv 12:08 Drug: Zofran 4 mg Route: IVP; Site: right antecubital; hb 13:00 Follow up: Pain 5/10 Adult; Response: No adverse reaction; Pain is decreased sv Outcome: 12:38 Discharge ordered by MD. del castillo 13:06 Discharged to home ambulatory, with significant other. hb 13:06 Condition: stable 13:06 Discharge instructions given to patient, Instructed on discharge instructions, follow up and referral plans. Demonstrated understanding of instructions, follow-up care. 13:13 Patient left the ED. hb Signatures: Dispatcher [employer] EDIA Cherelle Leigh, TIFFANY-Erik ALLEN-Hannah Rodriguez, RN RN Rita Carlos Audri RN RN aa5 Vero Palma, VASILIY RN Corrections: (The following items were deleted from the chart) 08:17 08:02 Arm band placed on Patient placed in an exam room, on a stretcher, aa5 aa5 13:36 08:11 BP 143 / 83; Pulse 85bpm; Resp 14bpm; Pulse Ox 99%; sv sv
--- NOTE | 2018-09-26 12:39 | EDPHYS ---
Physician Documentation [facility] Name: Ever Cruz Age: 48 yrs Sex: Female : 1970 Arrival Date: 09/26/2018 Time: 08:02 Bed 3 Private MD: ED Physician Luis Gee HPI: 09/26 08:18 This 48 yrs old Black Female presents to ER via Unassigned with complaints of Chest kb Pain. 08:18 The patient or guardian reports chest pain that is located primarily in the substernal kb area, anterior chest wall, right. Onset: 3 day(s) ago. The pain does not radiate. Associated signs and symptoms: Pertinent positives: shortness of breath, Pertinent negatives: abdominal pain, cough, diaphoresis, dizziness, headache, lower extremity pain, lower extremity swelling, lightheadedness, nausea, near syncope, palpitations, recent travel, syncope, vomiting. The chest pain is described as dull. Duration: The patient or guardian reports multiple episodes, that are intermittent. Severity of pain: At its worst the pain was mild moderate in the emergency department the pain is unchanged. The patient has experienced similar episodes in the past. The patient has not recently seen a physician. Pt reports chest pain to center and right side of chest that started a few days ago. Was intermittent, but became constant yesterday so she came in. Historical: - Allergies: 08:16 No Known Allergies; aa5 - Home Meds: 08:16 metformin 1,000 mg Oral tr24 twice a day [Active]; glimepiride 4 mg Oral tab twice a aa5 day [Active]; lisinopril-hydrochlorothiazide 20-12.5 mg Oral tab once daily [Active]; amlodipine oral [Active]; gabapentin 100 mg Oral cap twice a day [Active]; cyclobenzaprine 5 mg Oral tab as needed [Active]; - PMHx: 08:16 Diabetes - NIDDM; Hypertension; knee pain; aa5 - Immunization history:: Flu vaccine status is unknown. - Social history:: Smoking status: Patient/guardian denies using tobacco. - Ebola Screening: : No symptoms or risks identified at this time. ROS: 08:17 Constitutional: Negative for fever, chills, and weight loss, ENT: Negative for injury, kb pain, and discharge, Neck: Negative for injury, pain, and swelling, Abdomen/GI: Negative for abdominal pain, nausea, vomiting, diarrhea, and constipation, Back: Negative for injury and pain, MS/Extremity: Negative for injury and deformity, Skin: Negative for injury, rash, and discoloration, Neuro: Negative for headache, weakness, numbness, tingling, and seizure. 08:17 Cardiovascular: Positive for chest pain, Negative for edema, orthopnea, palpitations, paroxysmal nocturnal dyspnea. 08:17 Respiratory: Positive for shortness of breath, Negative for cough, dyspnea on exertion, hemoptysis, orthopnea, pleurisy, sputum production, wheezing. Exam: 08:13 Constitutional: This is a well developed, well nourished patient who is awake, alert, kb and in no acute distress. Head/Face: Normocephalic, atraumatic. Neck: Trachea midline, no thyromegaly or masses palpated, and no cervical lymphadenopathy. Supple, full range of motion without nuchal rigidity, or vertebral point tenderness. No Meningismus. Chest/axilla: Normal chest wall appearance and motion. Nontender with no deformity. No lesions are appreciated. Cardiovascular: Regular rate and rhythm with a normal S1 and S2. No gallops, murmurs, or rubs. Normal PMI, no JVD. No pulse deficits. Respiratory: Lungs have equal breath sounds bilaterally, clear to auscultation and percussion. No rales, rhonchi or wheezes noted. No increased work of breathing, no retractions or nasal flaring. Abdomen/GI: Soft, non-tender, with normal bowel sounds. No distension or tympany. No guarding or rebound. No evidence of tenderness throughout. Skin: Warm, dry with normal turgor. Normal color with no rashes, no lesions, and no evidence of cellulitis. MS/ Extremity: Pulses equal, no cyanosis. Neurovascular intact. Full, normal range of motion. Neuro: Awake and alert, GCS 15, oriented to person, place, time, and situation. Cranial nerves II-XII grossly intact. Motor strength 5/5 in all extremities. Sensory grossly intact. Cerebellar exam normal. Normal gait. 08:13 ECG was reviewed by the Attending Physician. Vital Signs: 08:11 BP 143 / 83; Pulse 85; Resp 14; Temp 98; Pulse Ox 99% ; sv 09:15 BP 137 / 80; Pulse 76; Resp 15; Pulse Ox 97% on R/A; Pain 8/10; hb 11:11 BP 122 / 77; Pulse 82 MON; Resp 18; Pulse Ox 96% ; sv 12:08 BP 125 / 81; Pulse 79; Resp 17; Pulse Ox 99% on R/A; Pain 9/10; hb 13:00 Pain 5/10; sv 13:00 Pain 5/10; sv 11:11 Sinus Rhythm sv MDM: 08:08 Patient medically screened. kb 08:17 Data reviewed: vital signs, nurses notes. Data interpreted: Pulse oximetry: on room air kb is 100 %. Interpretation: normal. 12:38 The patient was given aspirin in the Emergency Department. 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 09/26 08:09 Order name: Basic Metabolic Panel; Complete Time: 09:15 kb 09/26 08:09 Order name: CBC with Diff; Complete Time: 09:10 kb 09/26 08:09 Order name: LFT's; Complete Time: 09:15 kb 09/26 08:09 Order name: Magnesium; Complete Time: 09:15 kb 09/26 08:09 Order name: NT PRO-BNP; Complete Time: 09:15 kb 09/26 08:09 Order name: PT-INR; Complete Time: 10:07 kb 09/26 08:09 Order name: Troponin (emerg Dept Use Only); Complete Time: 09:10 kb 09/26 08:09 Order name: XRAY Chest (1 view); Complete Time: 08:47 kb 09/26 09:50 Order name: D-Dimer; Complete Time: 10:07 EDMS 09/26 11:50 Order name: Troponin (emerg Dept Use Only); Complete Time: 12:38 kb 09/26 08:09 Order name: EKG; Complete Time: 08:10 kb 09/26 08:09 Order name: Cardiac monitoring; Complete Time: 08:24 kb 09/26 08:09 Order name: EKG - Nurse/Tech; Complete Time: 08:24 kb 09/26 08:09 Order name: IV Saline Lock; Complete Time: 08:24 kb 09/26 08:09 Order name: Labs collected and sent; Complete Time: 08:24 kb 09/26 08:09 Order name: O2 Per Protocol; Complete Time: 08:25 kb 09/26 08:09 Order name: O2 Sat Monitoring; Complete Time: 08:25 kb 09/26 08:45 Order name: Labs - recollect needed; Complete Time: 09:23 ms 09/26 11:50 Order name: EKG; Complete Time: 11:51 kb 09/26 11:50 Order name: EKG - Nurse/Tech; Complete Time: 12:07 kb EC:13 Rate is 81 beats/min. Rhythm is regular, Normal Sinus Rhythm. QRS [place] is Normal. [place] kb interval is normal at 130 msec. QRS interval is normal at 86 msec. QT interval is normal at 358 msec. Clinical impression: Normal ECG. Interpreted by me. Reviewed by me. Administered Medications: 08:25 Drug: Aspirin Chewable Tablet 324 mg Route: PO; hb 09:37 Follow up: Response: No adverse reaction hb 09:22 Drug: morphine 4 mg Route: IVP; Site: right forearm; hb 10:05 Follow up: Response: No adverse reaction hb 09:22 Drug: Zofran 4 mg Route: IVP; Site: right forearm; hb 10:05 Follow up: Response: No adverse reaction hb 12:07 Drug: morphine 4 mg Route: IVP; Site: right forearm; hb 13:00 Follow up: Pain 5/10 Adult; Response: No adverse reaction; Pain is decreased sv 12:08 Drug: Zofran 4 mg Route: IVP; Site: right antecubital; hb 13:00 Follow up: Pain 5/10 Adult; Response: No adverse reaction; Pain is decreased sv Disposition: 17:16 Co-signature as Attending Physician, Luis Gee MD I agree with the assessment and kdr plan of care. Disposition: 09/26/18 12:38 Discharged to Home. Impression: Chest pain, unspecified. - Condition is Stable. - Discharge Instructions: Nonspecific Chest Pain, [id number]. - Medication Reconciliation Form, Thank You Letter, Antibiotic Education, Prescription Opioid Use form. - Follow up: Emergency Department; When: As needed; Reason: Worsening of condition. Follow up: Private Physician; When: 2 - 3 days; Reason: Recheck today's complaints, Continuance of care, Re-evaluation by your physician. Signatures: Dispatcher [employer] [facility] Reese Cherelle, SORTING MACHINE ATTENDANT-C SORTING MACHINE ATTENDANT-Ckb Luis Gee MD MD kdr Solis, Maria ms Calderon, Audri, RN RN aa5 Vero Palma RN RN Hannah Fisher RN Corrections: (The following items were deleted from the chart) 09:50 08:14 D-[id number] ordered. [facility] 13:13 12:38 09/26/2018 12:38 Discharged to Home. Impression: Chest pain, unspecified. hb Condition is Stable. Forms are Medication Reconciliation Form, Thank You Letter, Antibiotic Education, Prescription Opioid Use. Follow up: Emergency Department; When: As needed; Reason: Worsening of condition. Follow up: Private Physician; When: 2 - 3 days; Reason: Recheck today's complaints, Continuance of care, Re-evaluation by your physician. kb
[2018-09-26 15:14] VITALS: BP 125/81; O2SAT 99
== END 2018-09-26 13:13 | disposition home or self-care (01) ==
LOC: ER 08:00
DX: R07.9 Chest pain, unspecified (principal); R06.02 Shortness of breath; E11.9 Type 2 diabetes mellitus without complications; I10 Essential (primary) hypertension; Z79.84 Long term (current) use of oral hypoglycemic drugs
CPT/HCPCS: 36415; 71045; 80048; 80076; 83735; 83880; 84484; 85025; 85379; 85610; 93005; 99285; J2405

== ENCOUNTER 2018-11-29 08:35 | Emergency (ER) | payer OTHER, SELFPAY ==
--- NOTE | 2018-11-29 09:19 | RAD REPORT ---
EXAM DESCRIPTION: RAD - Chest Single View - 11/29/2018 9:13 am CLINICAL HISTORY: CHEST PAIN Chest pain. COMPARISON: Chest Single View dated 09/26/2018; Chest Single View dated 05/13/2018; Chest Single View dated 05/04/2017; Chest Single View dated 01/14/2017 FINDINGS: Portable technique limits examination quality. The lungs are grossly clear. The heart is normal in size. No displaced fractures. IMPRESSION: No acute intrathoracic process suspected.
[2018-11-29 09:22] LABS: Absolute Lymphocytes (CBC) 1.1 K/uL (0.7-4.9); Basophils % 0.5 % (0-1.3); Hematocrit 36.1 % (36.0-45.0); Lymphocytes % 20.8 % (15.3-44.8); MPV 7.5 fL (7.6-11.3); Protime INR 1.03; RBC Red Blood Cell Count 4.95 M/uL (3.86-4.86)
[2018-11-29 09:34] LABS: Urine Blood TRACE (NEG); Urine Glucose NEGATIVE (NEG); Urine Protein NEGATIVE (NEG); Urine Specific Gravity 1.025 (1.005-1.030); Urine pH 5.5 (5.0-7.0)
[2018-11-29 09:41] LABS: Urine Bacteria 20-50 /HPF (<20); Urine Culture Reflex Order NOT NEEDED; Urine RBC <5 /HPF (NONE SEEN)
[2018-11-29 09:43] LABS: ALT/SGPT 20 U/L (12-78); AST/SGOT 12 U/L (15-37); Albumin 3.2 g/dL (3.4-5.0); Alkaline Phosphatase 102 U/L (45-117); BUN Blood Urea Nitrogen 12 mg/dL (7-18); Bicarbonate 29 mmol/L (21-32); Bilirubin Direct 0.1 mg/dL (0-0.2); Bilirubin Total 0.4 mg/dL (0.2-1.0); Glucose Level 211 mg/dL (74-106); Magnesium 1.9 mg/dL (1.8-2.4); NT PRO-BNP 20 pg/mL (<125); Potassium 3.7 mmol/L (3.5-5.1); Protein, Total 7.5 g/dL (6.4-8.2); Sodium Level 140 mmol/L (136-145); Troponin (Emerg Dept Use Only) < 0.02 ng/mL (0.0-0.045)
[2018-11-29] MEDS ORDERED: ONDANSETRON 4 MG/2 ML VIAL ONE (10:16)
[2018-11-29] MEDS ORDERED: MORPHINE 4 MG/ML SYR ONE (10:16)
--- NOTE | 2018-11-29 10:47 | ER ---
Nurse's Notes [facility] Name: Ever Cruz Age: 48 yrs Sex: Female : 1970 Arrival Date: 11/29/2018 Time: 08:38 Bed 18 Private MD: Diagnosis: Chest pain, unspecified Presentation: 11/29 09:09 Presenting complaint: Patient states: SUBSTERNAL CP SINCE LAST PM. Transition of care: bp patient was not received from another setting of care. Onset of symptoms is unknown. Risk Assessment: Do you want to hurt yourself or someone else? Patient reports no desire to harm self or others. Initial Sepsis Screen: Does the patient meet any 2 criteria? No. Patient's initial sepsis screen is negative. Does the patient have a suspected source of infection? No. Patient's initial sepsis screen is negative. Care prior to arrival: None. 09:09 Method Of Arrival: Ambulatory bp 09:09 Acuity: LORNA 2 bp Triage Assessment: 09:11 General: Appears in no apparent distress. uncomfortable, obese, Behavior is bp cooperative, appropriate for age, anxious. Pain: Complains of pain in mid-sternal area. EENT: No deficits noted. Neuro: No deficits noted. Cardiovascular: No deficits noted. Respiratory: No deficits noted. GI: No signs and/or symptoms were reported involving the gastrointestinal system. : No signs and/or symptoms were reported regarding the genitourinary system. Derm: No deficits noted. Musculoskeletal: No deficits noted. 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 - Social history:: Smoking status: Patient/guardian denies using tobacco. - Ebola Screening: : No symptoms or risks identified at this time. Screenin:13 Abuse screen: Denies threats or abuse. Denies injuries from another. Nutritional bp screening: No deficits noted. Tuberculosis screening: No symptoms or risk factors identified. Fall Risk None identified. Assessment: 09:12 General: SEE TRIAGE NOTE. bp 09:15 Pain: Pain does not radiate. Pain began 1 day ago. bp 09:53 Reassessment: ALL CURRENT ORDERS COMPLETED, RESULTS PENDING. bp 10:47 Reassessment: PT D/C HOME AMBULATORY, DX WITH NONCARDIAC CHEST PAIN. bp Vital Signs: 09:11 BP 125 / 67; Pulse 90; Resp 16; Temp 98; Pulse Ox 99% ; Weight 127.01 kg; Height 5 ft. bp 7 in. (170.18 cm); 09:52 BP 122 / 83; Pulse 87; Resp 16; Pulse Ox 100% ; bp 10:46 BP 114 / 78; Pulse 89; Resp 16; Temp 98; Pulse Ox 97% ; bp 09:11 Body Mass Index 43.85 (127.01 kg, 170.18 cm) bp ED Course: 08:38 Patient arrived in ED. mr 08:39 Toni James, VASILIY is Primary Nurse. bp 08:39 Blayne Castaneda NP is PHCP. pm1 08:39 Luis Gee MD is Attending Physician. pm1 08:58 EKG done, by soil technician. reviewed by Blayne Casatneda NP. at1 09:05 Inserted saline lock: 20 gauge in right forearm, using aseptic technique. Blood bp collected. Patient maintains SpO2 saturation greater than 95% on room air. 09:09 Triage completed. bp 09:12 Arm band placed on right wrist. bp 09:13 Patient has correct armband on for positive identification. Bed in low position. Call bp light in reach. Side rails up X2. enterprise cloud architect on. Pulse ox on. NIBP on. 09:18 XRAY Chest (1 view) In Process Unspecified. EDMS 10:46 No provider procedures requiring assistance completed. IV discontinued, intact, bp bleeding controlled, No redness/swelling at site. Pressure dressing applied. Administered Medications: 10:20 Drug: morphine 4 mg Route: IVP; Site: right forearm; bp 10:53 Follow up: Response: Pain is decreased bp 10:20 Drug: Zofran 4 mg Route: IVP; Site: right forearm; bp 10:53 Follow up: Response: No adverse reaction bp Outcome: 10:32 Discharge ordered by . pm1 10:46 Discharged to home ambulatory. bp 10:46 Condition: stable 10:46 Discharge instructions given to patient, Instructed on discharge instructions, follow up and referral plans. Demonstrated understanding of instructions, follow-up care. 10:54 Patient left the ED. bp Addendum: 12/04/2018 15:59 Addendum: Culture Results: Positive urine culture. Patient was not prescribed s s antibiotics at discharge. Report given to SAMANTHA for further evaluation and then to business intelligence architect for follow up with patient. Phone call Attempt #1 After having conversation with patient. Patient reports she has in fact been having urinary frequency x "a few weeks." Called in Bactrim DS 1 tab PO BID x 7 days # 7 per MICHAEL Castillo to [facility] in [place] per patient request. Patient is grateful for follow up. Signatures: Dispatcher [employer] [facility] Mylene Hines Heidy Connolly, RN RN Yvonne Tian, order entry specialist EKG Tat1 Blayne Castaneda, WES MANAGEMENT EXPERT pm1 Toni James, VASILIY AMANDA bp
--- NOTE | 2018-11-29 10:49 | EDPHYS ---
Physician Documentation [facility] Name: Ever Cruz Age: 48 yrs Sex: Female : 1970 Arrival Date: 11/29/2018 Time: 08:38 Bed 18 Private MD: ED Physician Luis Gee HPI: 11/29 09:12 This 48 yrs old Black Female presents to ER via Ambulatory with complaints of Chest pm1 Pain, High Blood Pressure, High Blood Sugar. 09:12 The patient or guardian reports chest pain that is located primarily in the anterior pm1 aspect of right upper chest and anterior aspect of left upper chest. Onset: last night. The pain does not radiate. Associated signs and symptoms: Pertinent negatives: abdominal pain, cough, nausea, palpitations, shortness of breath, vomiting. The chest pain is described as sharp. Modifying factors: The symptoms are alleviated by nothing. the symptoms are aggravated by nothing. Severity of pain: in the emergency department the pain is actually worse. The patient has experienced similar episodes in the past, a few times. The patient has not recently seen a physician. 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 - Social history:: Smoking status: Patient/guardian denies using tobacco. - Ebola Screening: : No symptoms or risks identified at this time. ROS: 09:12 Constitutional: Negative for fever, chills, and weight loss, Eyes: Negative for injury, pm1 pain, redness, and discharge, ENT: Negative for injury, pain, and discharge, Neck: Negative for injury, pain, and swelling. 09:12 Respiratory: Negative for shortness of breath, cough, wheezing, and pleuritic chest pain, Abdomen/GI: Negative for abdominal pain, nausea, vomiting, diarrhea, and constipation, Back: Negative for injury and pain, : Negative for injury, bleeding, discharge, and swelling, MS/Extremity: Negative for injury and deformity, Skin: Negative for injury, rash, and discoloration, Neuro: Negative for headache, weakness, numbness, tingling, and seizure. 09:12 Cardiovascular: Positive for chest pain, Negative for edema, orthopnea, palpitations. Exam: 09:12 Constitutional: This is a well developed, well nourished patient who is awake, alert, pm1 and in no acute distress. Head/Face: Normocephalic, atraumatic. Neck: Trachea midline, no thyromegaly or masses palpated, and no cervical lymphadenopathy. Supple, full range of motion without nuchal rigidity, or vertebral point tenderness. No Meningismus. Chest/axilla: Normal chest wall appearance and motion. Nontender with no deformity. No lesions are appreciated. Cardiovascular: Regular rate and rhythm with a normal S1 and S2. No gallops, murmurs, or rubs. Normal PMI, no JVD. No pulse deficits. Respiratory: Lungs have equal breath sounds bilaterally, clear to auscultation and percussion. No rales, rhonchi or wheezes noted. No increased work of breathing, no retractions or nasal flaring. Abdomen/GI: Soft, non-tender, with normal bowel sounds. No distension or tympany. No guarding or rebound. No evidence of tenderness throughout. Back: No spinal tenderness. No costovertebral tenderness. Full range of motion. Skin: Warm, dry with normal turgor. Normal color with no rashes, no lesions, and no evidence of cellulitis. MS/ Extremity: Pulses equal, no cyanosis. Neurovascular intact. Full, normal range of motion. 09:12 Neuro: Orientation: is normal, Motor: is normal, moves all fours. Vital Signs: 09:11 BP 125 / 67; Pulse 90; Resp 16; Temp 98; Pulse Ox 99% ; Weight 127.01 kg; Height 5 ft. bp 7 in. (170.18 cm); 09:52 BP 122 / 83; Pulse 87; Resp 16; Pulse Ox 100% ; bp 10:46 BP 114 / 78; Pulse 89; Resp 16; Temp 98; Pulse Ox 97% ; bp 09:11 Body Mass Index 43.85 (127.01 kg, 170.18 cm) bp MDM: 08:40 Patient medically screened. pm1 09:14 Data reviewed: vital signs. pm1 10:30 ECG:. pm1 11/29 08:41 Order name: Basic Metabolic Panel; Complete Time: 09:56 pm1 11/29 08:41 Order name: CBC with Diff; Complete Time: 09:40 pm1 11/29 08:41 Order name: LFT's; Complete Time: 09:56 pm1 11/29 08:41 Order name: Magnesium; Complete Time: 09:56 pm1 11/29 08:41 Order name: NT PRO-BNP; Complete Time: 09:56 pm1 11/29 08:41 Order name: PT-INR; Complete Time: 09:40 pm1 11/29 08:41 Order name: Troponin (emerg Dept Use Only); Complete Time: 09:56 pm1 11/29 08:41 Order name: XRAY Chest (1 view); Complete Time: 09:40 pm1 11/29 09:19 Order name: Urine Culture eb 11/29 09:19 Order name: Urine Microscopic Only eb 11/29 09:21 Order name: Urine Dipstick--Ancillary (enter results); Complete Time: 09:40 eb 11/29 09:21 Order name: Urine --Ancillary (enter results); Complete Time: 09:40 eb 11/29 08:41 Order name: EKG; Complete Time: 08:42 pm1 11/29 08:41 Order name: Cardiac monitoring; Complete Time: 08:59 pm1 11/29 08:41 Order name: EKG - Nurse/Tech; Complete Time: 08:59 pm1 11/29 08:41 Order name: IV Saline Lock; Complete Time: 09:08 pm1 11/29 08:41 Order name: Labs collected and sent; Complete Time: 09:08 pm1 11/29 08:41 Order name: O2 Per Protocol; Complete Time: 09:08 pm1 11/29 08:41 Order name: O2 Sat Monitoring; Complete Time: 09:08 pm1 11/29 08:41 Order name: Urine Dipstick-Ancillary (obtain specimen); Complete Time: 09:14 pm1 11/29 08:41 Order name: Urine Test (obtain specimen); Complete Time: 09:14 pm1 EC:30 Rate is 101 beats/min. Rhythm is regular, Sinus Rhythm. QRS [place] is Normal. No Q waves. pm1 T waves are Normal. No ST changes noted. Clinical impression: Sinus tachycardia. Administered Medications: 10:20 Drug: morphine 4 mg Route: IVP; Site: right forearm; bp 10:53 Follow up: Response: Pain is decreased bp 10:20 Drug: Zofran 4 mg Route: IVP; Site: right forearm; bp 10:53 Follow up: Response: No adverse reaction bp Disposition: 14:50 Co-signature as Attending Physician, Luis Gee MD I agree with the assessment and kdr plan of care. Disposition: 11/29/18 10:32 Discharged to Home. Impression: Chest pain, unspecified. - Condition is Stable. - Discharge Instructions: Nonspecific Chest Pain. - Work release form, Medication Reconciliation Form, Thank You Letter, Antibiotic Education, Prescription Opioid Use form. - Follow up: Emergency Department; When: As needed; Reason: Worsening of condition. Follow up: Private Physician; When: 2 - 3 days; Reason: Recheck today's complaints, Continuance of care, Re-evaluation by your physician. - Problem is new. - Symptoms have improved. Signatures: Dispatcher [employer] EDMS Luis Gee MD MD [facility] Blayne Castaneda, WES BILLING SPECIALIST pm1 Toni James, RN RN bp Corrections: (The following items were deleted from the chart) 10:54 10:32 11/29/2018 10:32 Discharged to Home. Impression: Chest pain, unspecified. bp Condition is Stable. Forms are Medication Reconciliation Form, Thank You Letter, Antibiotic Education, Prescription Opioid Use. Follow up: Emergency Department; When: As needed; Reason: Worsening of condition. Follow up: Private Physician; When: 2 - 3 days; Reason: Recheck today's complaints, Continuance of care, Re-evaluation by your physician. Problem is new. Symptoms have improved. pm1
[2018-11-29 11:14] VITALS: TEMP 98
[2018-11-29 11:29] VITALS: BP 139/58; O2SAT 99
--- NOTE | 2018-11-29 14:57 | EKG ---
Test Date: 2018-11-29 Test Time: 08:45:42 Database Software Technician: GORDON MEASUREMENT RESULTS: Intervals: Rate: 101 OR: 126 QRSD: 80 QT: 342 QTc: 443 [place]: P: 49 OR: 126 QRS: 29 T: 19 INTERPRETIVE STATEMENTS: Sinus tachycardia Otherwise normal ECG Compared to ECG 09/26/2018 11:56:22 Sinus rhythm no longer present Electronically Signed On 11-29-18 14:56:11 CDT by Tony Hicks
== END 2018-11-29 10:54 | disposition home or self-care (01) ==
LOC: ER 08:35
DX: R07.9 Chest pain, unspecified (principal); I10 Essential (primary) hypertension; E11.9 Type 2 diabetes mellitus without complications
CPT/HCPCS: 93005; 87088; 85025; 87086; 80048; 36415; 83735; 81025; 85610; 80076; 87077; 87186; 84484; 83880; 71045; 96375; 96374; 99285; J2405; 81003; 81015

== ENCOUNTER 2019-03-14 21:49 | Emergency (ER) | payer OTHER ==
[2019-03-14] MEDS ORDERED: LIDOCAINE 1% MPF 5 ML VIAL ONE (22:43)
[2019-03-14] MEDS ORDERED: IBUPROFEN 400 MG TAB ONE (22:53)
[2019-03-14] MEDS ORDERED: CLINDAMYCIN HCL 150 MG CAP ONE (23:40)
[2019-03-15] MEDS ORDERED: TRAMADOL HCL 50 MG TAB ONE (00:08)
--- NOTE | 2019-03-15 00:10 | EDPHYS ---
Physician Documentation [facility] Name: Ever Cruz Age: 48 yrs Sex: Female : 1970 Arrival Date: 03/14/2019 Time: 21:52 Bed 16 Private MD: ED Physician Kenton Olson HPI: 03/15 04:27 This 48 yrs old Black Female presents to ER via Wheelchair with complaints of Foot tw4 Injury. 04:27 The patient presents with an injury, a puncture wound, glass. The complaints affect the tw4 right foot. Context: The problem was sustained at home, resulted from a penetrating injury, from glass, the patient is not able to bear weight. Onset: The symptoms/episode began/occurred just prior to arrival. Modifying factors: The symptoms are alleviated by nothing, the symptoms are aggravated by nothing. The patient has not experienced similar symptoms in the past. Historical: - Allergies: 03/14 22:00 No Known Allergies; jb4 - Home Meds: 22:00 amlodipine oral [Active]; gabapentin 100 mg Oral cap twice a day [Active]; glimepiride jb4 4 mg Oral tab twice a day [Active]; lisinopril-hydrochlorothiazide 20-12.5 mg Oral tab once daily [Active]; metformin 1,000 mg Oral tr24 twice a day [Active]; - PMHx: 22:00 Diabetes - NIDDM; Hypertension; knee pain; jb4 - PSHx: 22:00 ; jb4 - Immunization history:: Adult Immunizations up to date, Last tetanus immunization: < 10 years ago. - Social history:: Smoking status: Patient/guardian denies using tobacco, Patient uses alcohol, but reports only rare drinking. Patient/guardian denies using street drugs. - Ebola Screening: : No symptoms or risks identified at this time. ROS: 03/15 04:27 MS/extremity: Positive for pain, puncture, Negative for injury or acute deformity, tw4 abrasion. Constitutional: Negative for fever, chills, and weight loss, Eyes: Negative for injury, pain, redness, and discharge, Cardiovascular: Negative for chest pain, palpitations, and edema, Respiratory: Negative for shortness of breath, cough, wheezing, and pleuritic chest pain, Abdomen/GI: Negative for abdominal pain, nausea, vomiting, diarrhea, and constipation, Back: Negative for injury and pain. Neuro: Negative for headache, weakness, numbness, tingling, and seizure, Psych: Negative for depression, anxiety, suicide ideation, homicidal ideation, and hallucinations. MS/extremity: Positive for puncture, Negative for acute changes, injury or acute deformity, abrasion, rash, swelling, tenderness. Exam: 04:27 Constitutional: This is a well developed, well nourished patient who is awake, alert, tw4 and in no acute distress. Head/Face: Normocephalic, atraumatic. Eyes: Pupils equal round and reactive to light, extra-ocular motions intact. Lids and lashes normal. Conjunctiva and sclera are non-icteric and not injected. Cornea within normal limits. Periorbital areas with no swelling, redness, or edema. Chest/axilla: Normal chest wall appearance and motion. Nontender with no deformity. No lesions are appreciated. Cardiovascular: Regular rate and rhythm with a normal S1 and S2. No gallops, murmurs, or rubs. Normal PMI, no JVD. No pulse deficits. Respiratory: Lungs have equal breath sounds bilaterally, clear to auscultation and percussion. No rales, rhonchi or wheezes noted. No increased work of breathing, no retractions or nasal flaring. Abdomen/GI: Soft, non-tender, with normal bowel sounds. No distension or tympany. No guarding or rebound. No evidence of tenderness throughout. Back: No spinal tenderness. No costovertebral tenderness. Full range of motion. MS/ Extremity: Pulses equal, no cyanosis. Neurovascular intact. Full, normal range of motion. Neuro: Awake and alert, GCS 15, oriented to person, place, time, and situation. Cranial nerves II-XII grossly intact. Motor strength 5/5 in all extremities. Sensory grossly intact. Cerebellar exam normal. Normal gait. Vital Signs: 03/14 22:00 BP 141 / 85; Pulse 102; Resp 16; Temp 98.2(O); Pulse Ox 97% on R/A; Weight 124.74 kg jb4 (R); Height 5 ft. 7 in. (170.18 cm) (R); Pain 8/10; 22:45 BP 139 / 87; Pulse 91; Resp 16; Pulse Ox 99% on R/A; jb4 23:58 BP 145 / 90; Pulse 98; Resp 16; Pulse Ox 96% on R/A; jb4 22:00 Body Mass Index 43.07 (124.74 kg, 170.18 cm) [facility] Procedures: 03/15 04:27 Foreign Body Removal: a fragment of glass, from the right arch of right foot, by using tw4 a hemostat, Dressinx4s were used to dress the wound, The patient tolerated the removal well, FB removed xray negative for other FB. MDM: 03/14 22:05 Patient medically screened. tw4 03/15 04:27 Differential diagnosis: foreign body, penetrating trauma. Data reviewed: vital signs, tw4 nurses notes. Counseling: I had a detailed discussion with the patient and/or guardian regarding: the historical points, exam findings, and any diagnostic results supporting the discharge/admit diagnosis. Special discussion: I discussed with the patient/guardian in detail that at this point there is no indication for admission to the hospital. It is understood, however, that if the symptoms persist or worsen the patient needs to return immediately for re-evaluation. 03/14 22:31 Order name: XRAY Foot RIGHT 2 View [facility] Administered Medications: 03/14 22:55 Drug: Motrin 800 mg Route: PO; [facility] 03/15 00:16 Follow up: Response: No adverse reaction [facility] 03/14 23:10 Drug: Lidocaine (1 %) 5 mg {Note: Administered by ER provider.} Route: Infiltration; [facility] 23:46 Drug: Cleocin 300 mg Route: PO; [facility] 03/15 00:16 Follow up: Response: No adverse reaction [facility] 00:15 Drug: traMADol 50 mg {Note: Rass score 0.} Route: PO; [facility] 00:16 Follow up: Response: Medication administered at discharge. [facility] Disposition: 03/15/19 00:08 Discharged to Home. Impression: Superficial foreign body, right foot. - Condition is Stable. - Discharge Instructions: Puncture Wound, Foreign Body. - Prescriptions for Cleocin 300 mg Oral Capsule - take 1 capsule by ORAL route every 6 hours for 10 days; 40 capsule. Tramadol 50 mg Oral Tablet - take 1 tablet by ORAL route every 8 hours as needed; 12 tablet. - Work release form, Medication Reconciliation Form, Thank You Letter, Antibiotic Education, Prescription Opioid Use form. - Follow up: Private Physician; When: Upon discharge from the Emergency Department; Reason: Recheck today's complaints, Continuance of care. - Problem is new. - Symptoms have improved. Signatures: Dispatcher [employer] [place], RN RN jb4 Kenton Olson MD MD tw4 Corrections: (The following items were deleted from the chart) 00:25 00:08 03/15/2019 00:08 Discharged to Home. Impression: Superficial foreign body, right jb4 foot. Condition is Stable. Forms are Medication Reconciliation Form, Thank You Letter, Antibiotic Education, Prescription Opioid Use. Follow up: Private Physician; When: Upon discharge from the Emergency Department; Reason: Recheck today's complaints, Continuance of care. Problem is new. Symptoms have improved. tw4
--- NOTE | 2019-03-15 00:10 | ER ---
Nurse's Notes [facility] Name: Ever Cruz Age: 48 yrs Sex: Female : 1970 Arrival Date: 03/14/2019 Time: 21:52 Bed 16 Private MD: Diagnosis: Superficial foreign body, right foot Presentation: 03/14 22:00 Presenting complaint: Patient states: I stepped on broken glass about 30 minutes ago jb4 and I think it is still in there. 22:00 Transition of care: patient was not received from another setting of care. Onset of jb4 symptoms was March 14, 2019. Risk Assessment: Do you want to hurt yourself or someone else? Patient reports no desire to harm self or others. Initial Sepsis Screen: Does the patient meet any 2 criteria? HR > 90 bpm. Yes Does the patient have a suspected source of infection? No. Patient's initial sepsis screen is negative. Care prior to arrival: None. 22:00 Method Of Arrival: Wheelchair jb4 22:00 Acuity: LORNA 4 jb4 Historical: - Allergies: 22:00 No Known Allergies; jb4 - Home Meds: 22:00 amlodipine oral [Active]; gabapentin 100 mg Oral cap twice a day [Active]; glimepiride jb4 4 mg Oral tab twice a day [Active]; lisinopril-hydrochlorothiazide 20-12.5 mg Oral tab once daily [Active]; metformin 1,000 mg Oral tr24 twice a day [Active]; - PMHx: 22:00 Diabetes - NIDDM; Hypertension; knee pain; jb4 - PSHx: 22:00 ; jb4 - Immunization history:: Adult Immunizations up to date, Last tetanus immunization: < 10 years ago. - Social history:: Smoking status: Patient/guardian denies using tobacco, Patient uses alcohol, but reports only rare drinking. Patient/guardian denies using street drugs. - Ebola Screening: : No symptoms or risks identified at this time. Screenin:00 Abuse screen: Denies threats or abuse. Nutritional screening: No deficits noted. jb4 Tuberculosis screening: No symptoms or risk factors identified. Fall Risk Ambulatory Aid- Crutches/Cane/Walker (15 pts). Total Da Silva Fall Scale indicates No Risk (0-24 pts). Assessment: 22:00 General: Appears in no apparent distress. uncomfortable, Behavior is calm, cooperative, jb4 appropriate for age. Pain: Complains of pain in right foot Pain does not radiate. Pain currently is 8 out of 10 on a pain scale. Pain began 30 min ago. Neuro: Level of Consciousness is awake, alert, obeys commands, Oriented to person, place, time, situation. Cardiovascular: Patient's skin is warm and dry. Respiratory: Airway is patent Respiratory effort is even, unlabored, Respiratory pattern is regular, symmetrical. GI: No signs and/or symptoms were reported involving the gastrointestinal system. : No signs and/or symptoms were reported regarding the genitourinary system. EENT: No signs and/or symptoms were reported regarding the EENT system. Derm: Skin is dry, Skin is normal, Skin temperature is warm. Musculoskeletal: Circulation, motion, and sensation intact. Range of motion: intact in all extremities. Injury Description: Laceration sustained to arch of right foot is clean, 0.5 to 2.5 cm long, not bleeding, was sustained 30-60 minutes ago. no active bleeding noted at this time. 23:06 Reassessment: Patient appears in no apparent distress at this time. Patient and/or jb4 family updated on plan of care and expected duration. Pain level reassessed. Patient is alert, oriented x 3, equal unlabored respirations, skin warm/dry/pink. 23:58 Reassessment: Patient appears in no apparent distress at this time. Patient and/or jb4 family updated on plan of care and expected duration. Pain level reassessed. Patient is alert, oriented x 3, equal unlabored respirations, skin warm/dry/pink. Vital Signs: 22:00 BP 141 / 85; Pulse 102; Resp 16; Temp 98.2(O); Pulse Ox 97% on R/A; Weight 124.74 kg jb4 (R); Height 5 ft. 7 in. (170.18 cm) (R); Pain 8/10; 22:45 BP 139 / 87; Pulse 91; Resp 16; Pulse Ox 99% on R/A; jb4 23:58 BP 145 / 90; Pulse 98; Resp 16; Pulse Ox 96% on R/A; jb4 22:00 Body Mass Index 43.07 (124.74 kg, 170.18 cm) 4 ED Course: :52 Patient arrived in ED. cl3 22:00 Arm band placed on right wrist. jb4 22:00 Patient has correct armband on for positive identification. Bed in low position. Call jb4 light in reach. Side rails up X 1. Pulse ox on. NIBP on. 22:05 Kenton Olson MD is Attending Physician. tw4 22:05 Den Worthy, RN is Primary Nurse. jb4 22:08 Triage completed. jb4 22:56 XRAY Foot RIGHT 2 View In Process Unspecified. EDMS 23:10 Assist provider with foreign body removal of Glass from right foot using hemostats, Set jb4 up for procedure. Performed by Kenton Olson MD Dressed with bandaid. Patient tolerated well. 03/15 00:20 Patient did not have IV access during this emergency room visit. jb4 Administered Medications: 03/14 22:55 Drug: Motrin 800 mg Route: PO; jb4 03/15 00:16 Follow up: Response: No adverse reaction jb4 03/14 23:10 Drug: Lidocaine (1 %) 5 mg {Note: Administered by ER provider.} Route: Infiltration; jb4 23:46 Drug: Cleocin 300 mg Route: PO; jb4 03/15 00:16 Follow up: Response: No adverse reaction jb4 00:15 Drug: traMADol 50 mg {Note: Rass score 0.} Route: PO; jb4 00:16 Follow up: Response: Medication administered at discharge. jb4 Outcome: 00:08 Discharge ordered by . tw4 00:20 Discharged to home via wheelchair. jb4 00:20 Condition: stable 00:20 Discharge instructions given to patient, family, Instructed on discharge instructions, follow up and referral plans. medication usage, Demonstrated understanding of instructions, follow-up care, medications, Prescriptions given X 2. 00:25 Patient left the ED. jb4 Signatures: Dispatcher [employer] EDDen Salas, RN RN to4 Kenton Olson MD MD 4 Bob Aguilar cl3 Corrections: (The following items were deleted from the chart) 00:25 1212 22:45 Assist provider with foreign body removal of Glass from right foot using jb4 hemostats, Set up for procedure. Performed by Kenton Olson MD Dressed with bandaid. Patient tolerated well. jb4
[2019-03-15 03:16] VITALS: TEMP 98.2
[2019-03-15 03:19] VITALS: BP 145/90; O2SAT 96
--- NOTE | 2019-03-15 08:10 | RAD REPORT ---
EXAM DESCRIPTION: RAD - Foot Right 2 View - 03/14/2019 10:56 pm CLINICAL HISTORY: Left foot pain FINDINGS: 5 millimeter triangular density is present within the plantar subcutaneous tissues near th e junction of hindfoot and midfoot. This probably represents a foreign body
== END 2019-03-15 00:25 | disposition home or self-care (01) ==
LOC: ER 21:49
DX: S90.851A Superficial foreign body, right foot, initial encounter (principal); W25.XXXA Contact with sharp glass, initial encounter; Y93.9 Activity, unspecified; Y92.9 Unspecified place or not applicable; I10 Essential (primary) hypertension; E11.9 Type 2 diabetes mellitus without complications
CPT/HCPCS: 99284

== ENCOUNTER 2019-07-07 14:41 | Emergency (ER) | payer OTHER, SELFPAY ==
[2019-07-07] MEDS ORDERED: METOCLOPRAMIDE 10 MG/2mL INJ ONE (15:23)
[2019-07-07] MEDS ORDERED: NA CHLORIDE 0.9% 0 ML ONE (15:24)
[2019-07-07] MEDS ORDERED: KETOROLAC 30 MG/ML INJ ONE (15:24)
[2019-07-07] MEDS ORDERED: DIPHENHYDRAMINE 50 MG/ML VIAL ONE (15:24)
[2019-07-07] MEDS ORDERED: NA CHLORIDE 0.9% 100 ML IV ONE (15:25)
--- NOTE | 2019-07-07 16:16 | EDPHYS ---
Physician Documentation [facility] Name: Ever Cruz Age: 48 yrs Sex: Female : 1970 Arrival Date: 07/07/2019 Time: 14:43 Bed 19 Private MD: ED Physician Mando Gauthier HPI: 07/06 15:12 This 48 yrs old Black Female presents to ER via Wheelchair with complaints of Headache. pm1 15:12 The patient complains of pain to the diffusely all over head. The patient describes the pm1 headache as aching. Onset: The symptoms/episode began/occurred 3 day(s) ago. Associated signs and symptoms: Pertinent positives: blurred vision, Pertinent negatives: fever, neck stiffness, paresthesias, Photophobia rash, vomiting, weakness. Severity of symptoms: in the emergency department the pain is unchanged. Headache History: The patient has had previous headaches and this one is similar to previous episodes. The symptoms are alleviated by nothing. the symptoms are aggravated by nothing. The patient has experienced similar episodes in the past, and the symptoms today are exactly the same, to previous prior headaches. Patient has a prescription medication that worked for her headaches but she ran out and was not able to request a prescription refill because it was too old. 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 - Social history:: Smoking status: . ROS: 15:29 Constitutional: Negative for fever, chills, and weight loss. pm1 15:29 ENT: Negative for injury, pain, and discharge, Neck: Negative for injury, pain, and swelling, Cardiovascular: Negative for chest pain, palpitations, and edema, Respiratory: Negative for shortness of breath, cough, wheezing, and pleuritic chest pain, Abdomen/GI: Negative for abdominal pain, nausea, vomiting, diarrhea, and constipation, Back: Negative for injury and pain, MS/Extremity: Negative for injury and deformity, Skin: Negative for injury, rash, and discoloration. 15:29 Eyes: Positive for blurry vision, Negative for discharge, pain. 15:29 Neuro: Positive for headache, Negative for dizziness, numbness, tingling, weakness. 15:29 : Positive for itchy rash to genital area. pm1 Exam: 15:29 Constitutional: This is a well developed, well nourished patient who is awake, alert, pm1 and in no acute distress. Head/Face: Normocephalic, atraumatic. Neck: Trachea midline, no thyromegaly or masses palpated, and no cervical lymphadenopathy. Supple, full range of motion without nuchal rigidity, or vertebral point tenderness. No Meningismus. Chest/axilla: Normal chest wall appearance and motion. Nontender with no deformity. No lesions are appreciated. Cardiovascular: Regular rate and rhythm with a normal S1 and S2. No gallops, murmurs, or rubs. Normal PMI, no JVD. No pulse deficits. Respiratory: Lungs have equal breath sounds bilaterally, clear to auscultation and percussion. No rales, rhonchi or wheezes noted. No increased work of breathing, no retractions or nasal flaring. Abdomen/GI: Soft, non-tender, with normal bowel sounds. No distension or tympany. No guarding or rebound. No evidence of tenderness throughout. Back: No spinal tenderness. No costovertebral tenderness. Full range of motion. Skin: Warm, dry with normal turgor. Normal color with no rashes, no lesions, and no evidence of cellulitis. MS/ Extremity: Pulses equal, no cyanosis. Neurovascular intact. Full, normal range of motion. 15:29 Neuro: Exam negative for acute changes, focal neuro deficits, Orientation: is normal, Mentation: is normal, Motor: is normal, moves all fours. Vital Signs: 15:00 BP 138 / 77; Pulse 99; Resp 16; Temp 97.8; Pulse Ox 96% on R/A; iw 16:30 BP 118 / 70; Pulse 86; Resp 16 S; Pulse Ox 95% on R/A; ca1 17:10 BP 127 / 75; Pulse 83; Resp 17 S; Pulse Ox 96% on R/A; ca1 MDM: 15:02 Patient medically screened. pm1 16:13 Data reviewed: vital signs. Data interpreted: Pulse oximetry: on room air is 96 %. pm1 Interpretation: normal. Counseling: I had a detailed discussion with the patient and/or guardian regarding: the historical points, exam findings, and any diagnostic results supporting the discharge/admit diagnosis, the need for outpatient follow up, for definitive care, a family practitioner, a neurologist, to return to the emergency department if symptoms worsen or persist or if there are any questions or concerns that arise at home. 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 pm1 04 15:40 Order name: Glucose, Ancillary Testing EDMS 07/06 15:08 Order name: IV Saline Lock; Complete Time: 15:15 pm1 Administered Medications: 15:20 Drug: TORadol - Ketorolac 15 mg Route: IVP; Site: left antecubital; ca1 16:30 Follow up: Response: No adverse reaction; Pain is decreased ca1 15:22 Drug: Benadryl 25 mg Route: IVP; Site: left antecubital; ca1 16:30 Follow up: Response: No adverse reaction; Pain is decreased ca1 15:24 Drug: Reglan 10 mg Route: IVP; Site: left antecubital; ca1 16:30 Follow up: Response: No adverse reaction; Pain is decreased ca1 Disposition: 17:20 Co-signature as Attending Physician, Mando Gauthier MD. rn Disposition: 07/07/19 16:15 Discharged to Home. Impression: Headache, Candidiasis of other urogenital sites. - Condition is Stable. - Discharge Instructions: General Headache Without Cause, Vaginal Yeast Infection, Adult. - Prescriptions for Fiorinal 50- 325-40 mg Oral Capsule - take 1 capsule by ORAL route every 4 hours As needed - not to exceed 6 capsules per day; 20 capsule. Diflucan 150 mg Oral Tablet - take 1 tablet by ORAL route one time for 1 day; 1 tablet. - Medication Reconciliation Form, Thank You Letter, Antibiotic Education, Prescription Opioid Use, Work release form form. - Follow up: Emergency Department; When: As needed; Reason: Worsening of condition. Follow up: Private Physician; When: 2 - 3 days; Reason: Recheck today's complaints, Continuance of care, Re-evaluation by your physician. - Problem is new. - Symptoms have improved. Signatures: Daria Beck, RN RN iw Mando Gauthier MD MD rn Marinas, Patrick, CASKET TRIMMER CASKET TRIMMER pm1 Albertina Nix RN RN ca1 Corrections: (The following items were deleted from the chart) 16:59 16:15 07/07/2019 16:15 Discharged to Home. Impression: Headache. Condition is Stable. pm1 Forms are Medication Reconciliation Form, Thank You Letter, Antibiotic Education, Prescription Opioid Use. Follow up: Emergency Department; When: As needed; Reason: Worsening of condition. Follow up: Private Physician; When: 2 - 3 days; Reason: Recheck today's complaints, Continuance of care, Re-evaluation by your physician. Problem is new. Symptoms have improved. pm1 17:16 16:59 07/07/2019 16:15 Discharged to Home. Impression: Headache; Candidiasis of other ca1 urogenital sites. Condition is Stable. Discharge Instructions: General Headache Without Cause. Prescriptions for Fiorinal 50-325-40 mg Oral Capsule - take 1 capsule by ORAL route every 4 hours As needed - not to exceed 6 capsules per day; 20 capsule. and Forms are Medication Reconciliation Form, Thank You Letter, Antibiotic Education, Prescription Opioid Use. Follow up: Emergency Department; When: As needed; Reason: Worsening of condition. Follow up: Private Physician; When: 2 - 3 days; Reason: Recheck today's complaints, Continuance of care, Re-evaluation by your physician. Problem is new. Symptoms have improved. pm1
--- NOTE | 2019-07-07 16:16 | ER ---
Nurse's Notes [facility] Name: Ever Cruz Age: 48 yrs Sex: Female : 1970 Arrival Date: 07/07/2019 Time: 14:43 Bed 19 Private MD: Diagnosis: Headache;Candidiasis of other urogenital sites Presentation: 07/06 15:00 Chief complaint: Patient states: has hx of diabetes, has had migraine for past 3 days iw along with blurry vision, has prescription for headache medicine but it was , also has yeast infection X 1 week. Coronavirus screen: Proceed with normal triage. Patient denies a cough. Patient denies shortness of breath or difficulty breathing. Patient denies measured and/or subjective temperature greater than 100.4F prior to today's visit. Patient denies travel on a cruise ship or to a country the [facility] currently lists as an affected area. Patient denies contact with known and/or suspected case of COVID-19. Ebola Screen: Patient negative for fever greater than or equal to 101.5 degrees Fahrenheit, and additional compatible Ebola Virus Disease symptoms Patient denies exposure to infectious person. Patient denies travel to an Ebola-affected area in the 21 days before illness onset. No symptoms or risks identified at this time. Initial Sepsis Screen: Does the patient meet any 2 criteria? No. Patient's initial sepsis screen is negative. Does the patient have a suspected source of infection? No. Patient's initial sepsis screen is negative. Risk Assessment: Do you want to hurt yourself or someone else? Patient reports no desire to harm self or others. Onset of symptoms was July 03, 2019. 15:00 Method Of Arrival: Wheelchair iw 15:00 Acuity: LORNA 3 iw Triage Assessment: 15:35 Pain: Also complains of. 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 - Social history:: Smoking status: . Screenin:25 Abuse screen: Denies threats or abuse. Denies injuries from another. Nutritional ca1 screening: No deficits noted. Tuberculosis screening: No symptoms or risk factors identified. Fall Risk IV access (20 points). Assessment: 15:25 General: Appears in no apparent distress. comfortable, Behavior is calm, cooperative, ca1 appropriate for age. Pain: Complains of pain in face and scalp Pain currently is 8 out of 10 on a pain scale. Pain: Pain began 2-3 days ago. Neuro: Level of Consciousness is obeys commands, Oriented to person, place, time, situation, Appropriate for age. Neuro: Reports blurred vision dizziness, headache. Cardiovascular: Heart tones S1 S2 present Capillary refill < 3 seconds Patient's skin is warm and dry. Respiratory: Airway is patent Respiratory effort is even, unlabored, Respiratory pattern is regular, symmetrical, Breath sounds are clear bilaterally. GI: Abdomen is round non-distended, Bowel sounds present X 4 quads. Abd is soft and non tender X 4 quads. : No signs and/or symptoms were reported regarding the genitourinary system. EENT: No signs and/or symptoms were reported regarding the EENT system. Derm: Skin is intact, is healthy with good turgor, Skin is pink, warm \T\ dry. Musculoskeletal: Circulation, motion, and sensation intact. Capillary refill < 3 seconds. 16:30 Reassessment: Patient appears in no apparent distress at this time. Pt resting. Eyes ca1 closed. 17:10 Reassessment: Patient appears in no apparent distress at this time. Patient is alert, ca1 oriented x 3, equal unlabored respirations, skin warm/dry/pink. Vital Signs: 15:00 BP 138 / 77; Pulse 99; Resp 16; Temp 97.8; Pulse Ox 96% on R/A; iw 16:30 BP 118 / 70; Pulse 86; Resp 16 S; Pulse Ox 95% on R/A; ca1 17:10 BP 127 / 75; Pulse 83; Resp 17 S; Pulse Ox 96% on R/A; ca1 ED Course: 14:43 Patient arrived in ED. ag5 14:58 Albertina Nix RN is Primary Nurse. ca1 15:01 [facility]. pm1 15:01 Mando Gauthier MD is Attending Physician. pm1 15:16 Initial lab(s) drawn, by me, held in ED. Inserted saline lock: 20 gauge in left ca1 antecubital area, using aseptic technique. Blood collected. 15:22 Triage completed. iw 15:25 No provider procedures requiring assistance completed. ca1 15:25 Patient has correct armband on for positive identification. Bed in low position. Call ca1 light in reach. Side rails up X2. Pulse ox on. NIBP on. Warm blanket given. 15:35 Arm band placed on right wrist. ca1 17:14 IV discontinued, intact, bleeding controlled, No redness/swelling at site. Pressure ca1 dressing applied. Administered Medications: 15:20 Drug: TORadol - Ketorolac 15 mg Route: IVP; Site: left antecubital; ca1 16:30 Follow up: Response: No adverse reaction; Pain is decreased ca1 15:22 Drug: Benadryl 25 mg Route: IVP; Site: left antecubital; ca1 16:30 Follow up: Response: No adverse reaction; Pain is decreased ca1 15:24 Drug: Reglan 10 mg Route: IVP; Site: left antecubital; ca1 16:30 Follow up: Response: No adverse reaction; Pain is decreased ca1 Outcome: 16:15 Discharge ordered by MD. pm1 17:14 Discharged to home ambulatory. ca1 17:14 Condition: stable 17:14 Discharge instructions given to patient, Instructed on discharge instructions, follow up and referral plans. medication usage, Demonstrated understanding of instructions, follow-up care, medications, Prescriptions given X 2. 17:16 Patient left the ED. ca1 Signatures: Daria Beck RN RN iw Blayne Castaneda NP MEDICAL SUPERVISOR pm1 Albertina Nix RN RN ca1 Mansoor Dhillon ag5 Corrections: (The following items were deleted from the chart) 15:31 15:16 Inserted saline lock: 20 gauge in right antecubital area, using aseptic ca1 technique. Blood collected. ca1 17:16 17:15 Reassessment: Patient appears in no apparent distress at this time. Patient is ca1 alert, oriented x 3, equal unlabored respirations, skin warm/dry/pink. ca1
[2019-07-07 18:05] VITALS: TEMP 97.8
[2019-07-07 18:08] VITALS: BP 127/75; O2SAT 96
== END 2019-07-07 17:16 | disposition home or self-care (01) ==
LOC: ER 14:41
DX: R51 Headache (principal); B37.49 Other urogenital candidiasis; I10 Essential (primary) hypertension; E11.9 Type 2 diabetes mellitus without complications
CPT/HCPCS: 82947; 96374; 96375; 99284; J1200; J2765; J7030

== ENCOUNTER 2020-01-16 21:17 | Emergency (ER) | payer SELFPAY ==
[2020-01-16] MEDS ORDERED: NA CHLORIDE 0.9% 1,000 ML ONE (23:07)
[2020-01-16 23:17] LABS: Absolute Lymphocytes (CBC) 2.1 K/uL (0.7-4.9); Basophils % 0.7 % (0-1.3); Hematocrit 37.5 % (36.0-45.0); Lymphocytes % 28.8 % (15.3-44.8); MPV 7.8 fL (7.6-11.3); RBC Red Blood Cell Count 5.11 M/uL (3.86-4.86)
[2020-01-16 23:19] LABS: Protime INR 0.97
[2020-01-16 23:30] LABS: ALT/SGPT 30 U/L (12-78); AST/SGOT 11 U/L (15-37); Albumin 3.3 g/dL (3.4-5.0); Alkaline Phosphatase 102 U/L (45-117); BUN Blood Urea Nitrogen 9 mg/dL (7-18); Bicarbonate 30 mmol/L (21-32); Bilirubin Direct < 0.1 mg/dL (0-0.2); Bilirubin Total 0.3 mg/dL (0.2-1.0); Glucose Level 230 mg/dL (74-106); Magnesium 2.1 mg/dL (1.8-2.4); NT PRO-BNP 62 pg/mL (<125); Potassium 3.7 mmol/L (3.5-5.1); Sodium Level 136 mmol/L (136-145); Troponin (Emerg Dept Use Only) < 0.02 ng/mL (0.0-0.045)
--- NOTE | 2020-01-17 00:49 | ER ---
Nurse's Notes [facility] Name: Ever Cruz Age: 49 yrs Sex: Female : 1970 Arrival Date: 01/16/2020 Time: 21:18 Bed 20 Private MD: Diagnosis: Urinary tract infection, site not specified;Syncope and collapse Presentation: 01/15 22:10 Chief complaint: Patient states: Had a doctor's appointment today. BP high at 165/94, ca1 BGL 315-317. 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 C/O pain all over from from shoulders, knees to feet, dizziness at this time. Coronavirus screen: Client denies travel out of the [place] in the last 14 days. At this time, the client does not indicate any symptoms associated with coronavirus-19. Ebola Screen: Patient negative for fever greater than or equal to 101.5 degrees Fahrenheit, and additional compatible Ebola Virus Disease symptoms Patient denies exposure to infectious person. Patient denies travel to an Ebola-affected area in the 21 days before illness onset. No symptoms or risks identified at this time. Initial Sepsis Screen: Does the patient meet any 2 criteria? No. Patient's initial sepsis screen is negative. Does the patient have a suspected source of infection? No. Patient's initial sepsis screen is negative. Risk Assessment: Do you want to hurt yourself or someone else? Patient reports no desire to harm self or others. Onset of symptoms was January 16, 2020. 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 - Social history:: Smoking status: Patient denies any tobacco usage or history of. Screenin:10 Abuse screen: Denies threats or abuse. Denies injuries from another. Nutritional ca1 screening: No deficits noted. Tuberculosis screening: No symptoms or risk factors identified. Fall Risk IV access (20 points). Assessment: 22:10 General: Appears in no apparent distress. comfortable, Behavior is calm, cooperative, ca1 appropriate for age. Pain: Complains of pain in all over in front of body Pain currently is 7 out of 10 on a pain scale. Quality of pain is described as sore. 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 Gait is steady, Speech is normal, Facial symmetry appears normal, Pupils are PERRLA, Intact Reports dizziness. Cardiovascular: Heart tones S1 S2 present Capillary refill < 3 seconds Patient's skin is warm and dry. Respiratory: Airway is patent Respiratory effort is even, unlabored, Respiratory pattern is regular, symmetrical, Breath sounds are clear bilaterally. GI: Abdomen is round non-distended, Bowel sounds present X 4 quads. Abd is soft and non tender X 4 quads. : No signs and/or symptoms were reported regarding the genitourinary system. EENT: No signs and/or symptoms were reported regarding the EENT system. Derm: Skin is intact, is healthy with good turgor, Skin is pink, warm \T\ dry. Musculoskeletal: Circulation, motion, and sensation intact. Capillary refill < 3 seconds. 23:02 Reassessment: Patient appears in no apparent distress at this time. Patient and/or ca1 family updated on plan of care and expected duration. Pain level reassessed. Patient is alert, oriented x 3, equal unlabored respirations, skin warm/dry/pink. 01/16 00:30 Reassessment: Patient appears in no apparent distress at this time. Patient and/or ca1 family updated on plan of care and expected duration. Pain level reassessed. Patient is alert, oriented x 3, equal unlabored respirations, skin warm/dry/pink. 01:34 Reassessment: Patient appears in no apparent distress at this time. Patient and/or ca1 family updated on plan of care and expected duration. Pain level reassessed. Patient is alert, oriented x 3, equal unlabored respirations, skin warm/dry/pink. Vital Signs: 01/15 22:10 BP 142 / 75; Pulse 88; Resp 17 S; Temp 99.2(O); Pulse Ox 99% on R/A; Pain 7/10; ca1 23:01 BP 125 / 76; Pulse 85; Resp 16 S; Pulse Ox 100% on R/A; ca1 23:01 Weight 122.47 kg (R); Height 5 ft. 7 in. (170.18 cm) (R); ca1 01/16 00:23 BP 126 / 73; Pulse 78; Resp 16 S; Pulse Ox 95% on R/A; ca1 01:35 BP 122 / 82; Pulse 78; Resp 16 S; Pulse Ox 95% on R/A; ca1 01/15 23:01 Body Mass Index 42.29 (122.47 kg, 170.18 cm) ca1 ED Course: 01/15 21:18 Patient arrived in ED. cl3 22:04 Steven Verma PA is PHCP. m 22:04 Luis Zamarripa MD is Attending Physician. [facility] 22:06 Albertina Nix, VASILIY is Primary Nurse. ca1 22:10 Arm band placed on. ca1 22:10 Patient has correct armband on for positive identification. Placed in gown. Bed in low ca1 position. Call light in reach. Side rails up X2. 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 Pulse ox on. NIBP on. Warm blanket given. 22:44 Triage completed. ca1 22:53 Initial lab(s) drawn, by me, sent to lab. Inserted saline lock: 20 gauge in left ca1 antecubital area, using aseptic technique. Blood collected. 23:51 XRAY Chest (1 view) In Process Unspecified. EDMS 01/16 01:35 No provider procedures requiring assistance completed. IV discontinued, intact, ca1 bleeding controlled, No redness/swelling at site. Pressure dressing applied. Administered Medications: 01/15 22:58 Drug: NS 0.9% 1000 ml Route: IV; Rate: 1 bolus; Site: left antecubital; ca1 23:58 Follow up: IV Status: Completed infusion; IV Intake: 1000ml ca1 01/16 01:12 Drug: Zofran (Ondansetron) 4 mg Route: IVP; Site: left antecubital; ca1 01:34 Follow up: Response: No adverse reaction; Nausea is decreased ca1 01:14 Drug: morphine 4 mg {Note: rass 0.} Route: IVP; Site: left antecubital; ca1 01:34 Follow up: Response: No adverse reaction; Pain is decreased; RASS: Alert and Calm (0) ca1 Intake: 01/15 23:58 IV: 1000ml; Total: 1000ml. ca1 Outcome: 01/16 00:48 Discharge ordered by MD. kraus 01:35 Discharged to home ambulatory, with family. ca1 01:35 Condition: stable 01:35 Discharge instructions given to patient, Instructed on discharge instructions, follow up and referral plans. medication usage, Demonstrated understanding of instructions, follow-up care, medications, Prescriptions given X 1. 01:36 Patient left the ED. ca1 Signatures: Dispatcher [employer] EDMS Steven Verma PA PA jmm Acob, Cheryl RN RN ca1 Bob Aguilar cl3
--- NOTE | 2020-01-17 00:49 | EDPHYS ---
Physician Documentation [facility] Name: Ever Cruz Age: 49 yrs Sex: Female : 1970 Arrival Date: 01/16/2020 Time: 21:18 Bed 20 Private MD: ED Physician Luis Zamarripa HPI: 01/15 22:10 This 49 yrs old Black Female presents to ER via Wheelchair with complaints of High jmm Blood Sugar, Passed Out Prior To Arrival. 22:10 The patient has experienced syncope, collapsed. Onset: The symptoms/episode jmm began/occurred acutely, just prior to arrival. Duration: This was a single episode. This is a 49 year old female with a history of DM, htn that presents to the ED with complaints of generalized pain after a syncopal episode which occurred just prior to arrival. Patient denies chest pain, shortness of breath, abdominal pain. Patient fell forward. . 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 - Social history:: Smoking status: Patient denies any tobacco usage or history of. ROS: 01/16 00:41 Constitutional: Negative for fever, chills, and weight loss, Cardiovascular: Negative jmm for chest pain, palpitations, and edema, Respiratory: Negative for shortness of breath, cough, wheezing, and pleuritic chest pain, Abdomen/GI: Negative for abdominal pain, nausea, vomiting, diarrhea, and constipation. Neuro: Positive for syncope. All other systems are negative. Exam: 01/15 23:34 ECG was reviewed by the Attending Physician. jmm 01/16 00:41 Constitutional: This is a well developed, well nourished patient who is awake, alert, jmm and in no acute distress. Head/Face: atraumatic. Eyes: EOMI, no conjunctival erythema appreciated ENT: Moist Mucus Membranes Chest/axilla: Normal chest wall appearance and motion. Cardiovascular: Regular rate and rhythm. No edema appreciated Respiratory: Normal respirations, no respiratory distress appreciated Abdomen/GI: Non distended, soft Back: Normal ROM Skin: General appearance color normal MS/ Extremity: Moves all extremities, no obvious deformities appreciated, no edema noted to the lower extremities Neuro: Awake and alert, normal gait Psych: Behavior is normal, Mood is normal, Patient is cooperative and pleasant Vital Signs: 01/15 22:10 BP 142 / 75; Pulse 88; Resp 17 S; Temp 99.2(O); Pulse Ox 99% on R/A; Pain 7/10; ca1 23:01 BP 125 / 76; Pulse 85; Resp 16 S; Pulse Ox 100% on R/A; ca1 23:01 Weight 122.47 kg (R); Height 5 ft. 7 in. (170.18 cm) (R); ca1 01/16 00:23 BP 126 / 73; Pulse 78; Resp 16 S; Pulse Ox 95% on R/A; ca1 01:35 BP 122 / 82; Pulse 78; Resp 16 S; Pulse Ox 95% on R/A; ca1 01/15 23:01 Body Mass Index 42.29 (122.47 kg, 170.18 cm) ca1 MDM: 01/15 22:10 Patient medically screened. ajit 01/16 00:41 Data reviewed: vital signs, nurses notes. Counseling: I had a detailed discussion with efra the patient and/or guardian regarding: the historical points, exam findings, and any diagnostic results supporting the discharge/admit diagnosis, lab results, radiology results, the need for outpatient follow up, to return to the emergency department if symptoms worsen or persist or if there are any questions or concerns that arise at home. ED course: Patient is alert and non toxic in appearance in the ED. [place] syncope rules negative. Patient is advised to follow up with pcp and otherwise given strict return precautions. Patient understood and agrees with the plan of care. . 01/15 22:16 Order name: Basic Metabolic Panel; Complete Time: 23:31 [facility] 01/15 22:16 Order name: CBC with Diff; Complete Time: 23:26 [facility] 01/15 22:16 Order name: LFT's; Complete Time: 23:31 [facility] 01/15 22:16 Order name: Magnesium; Complete Time: 23:31 [facility] 01/15 22:16 Order name: NT PRO-BNP; Complete Time: 23:31 jm 01/15 22:16 Order name: PT-INR; Complete Time: 23:26 [facility] 01/15 22:16 Order name: Troponin (emerg Dept Use Only); Complete Time: 23:31 jm 01/15 22:16 Order name: XRAY Chest (1 view) [facility] 01/15 23:07 Order name: D-Dimer; Complete Time: 23:26 EDMS 01/16 01:03 Order name: Urine --Ancillary (enter results); Complete Time: 01:10 tt3 01/16 01:03 Order name: Urine Dipstick--Ancillary (enter results); Complete Time: 01:10 tt3 01/15 22:16 Order name: EKG; Complete Time: 22:17 jm 01/15 22:16 Order name: Cardiac monitoring; Complete Time: 23:10 [facility] 01/15 22:16 Order name: EKG - Nurse/Tech; Complete Time: 23:10 [facility] 01/15 22:16 Order name: IV Saline Lock; Complete Time: 22:53 [facility] 01/15 22:16 Order name: Labs collected and sent; Complete Time: 22:53 [facility] 01/15 22:16 Order name: O2 Per Protocol; Complete Time: 22:53 [facility] 01/15 22:16 Order name: O2 Sat Monitoring; Complete Time: 22:53 [facility] 01/15 22:16 Order name: Urine Dipstick-Ancillary (obtain specimen); Complete Time: 01:30 [facility] 01/15 22:25 Order name: Urine Test (obtain specimen); Complete Time: 01:30 jmm EC/15 23:34 Rate is 77 beats/min. Rhythm is regular. QRS [place] is Normal. TN interval is normal. QRS jmm interval is normal. QT interval is normal. No Q waves. T waves are Normal. No ST changes noted. Reviewed by me. Administered Medications: 22:58 Drug: NS 0.9% 1000 ml Route: IV; Rate: 1 bolus; Site: left antecubital; ca1 23:58 Follow up: IV Status: Completed infusion; IV Intake: 1000ml ca1 01/16 01:12 Drug: Zofran (Ondansetron) 4 mg Route: IVP; Site: left antecubital; ca1 01:34 Follow up: Response: No adverse reaction; Nausea is decreased ca1 01:14 Drug: morphine 4 mg {Note: rass 0.} Route: IVP; Site: left antecubital; ca1 01:34 Follow up: Response: No adverse reaction; Pain is decreased; RASS: Alert and Calm (0) ca1 Disposition: 01/17/20 00:48 Discharged to Home. Impression: Urinary tract infection, site not specified, Syncope and collapse. - Condition is Stable. - Discharge Instructions: Syncope, Urinary Tract Infection, Adult. - Prescriptions for Cephalexin 500 mg Oral Capsule - take 1 capsule by ORAL route 3 times per day for 7 days; 21 capsule. - Medication Reconciliation Form, Thank You Letter, Antibiotic Education, Prescription Opioid Use, Work release form form. - Follow up: Private Physician; When: 2 - 3 days; Reason: Recheck today's complaints, Continuance of care, Re-evaluation by your physician. Addendum: 01/18/2020 13:11 Co-signature as Attending Physician, Luis Zamarripa MD I agree with the assessment and c sinha plan of care. Signatures: Dispatcher [employer] [facility] Luis Zamarripa MD MD cha Mickail, Joel, PA PA [facility] Albertina Nix RN RN ca1 Corrections: (The following items were deleted from the chart) 01/15 23:07 22:58 D-DIMER+COAG.LAB.BRZ ordered. [facility] 01/16 00:43 01/15 22:10 This is a 49 year old female with a history of DM, htn that [facility] with complaints of generalized. [facility] 01/16 01:36 00:48 01/17/2020 00:48 Discharged to Home. Impression: Urinary tract infection, site ca1 not specified; Syncope and collapse. Condition is Stable. Forms are Medication Reconciliation Form, Thank You Letter, Antibiotic Education, Prescription Opioid Use. Follow up: Private Physician; When: 2 - 3 days; Reason: Recheck today's complaints, Continuance of care, Re-evaluation by your physician. [facility]
[2020-01-17 01:05] LABS: Urine Blood NEGATIVE (NEG); Urine Glucose NEGATIVE (NEG); Urine Protein NEGATIVE (NEG); Urine pH 5.5 (5.0-7.0)
[2020-01-17] MEDS ORDERED: MORPHINE 4 MG/ML SYR ONE (01:23)
[2020-01-17] MEDS ORDERED: ONDANSETRON 4 MG/2 ML VIAL ONE (01:25)
[2020-01-17 02:40] VITALS: TEMP 99.2
[2020-01-17 02:51] VITALS: O2SAT 95
[2020-01-17 02:53] VITALS: BP 122/82
--- NOTE | 2020-01-17 09:04 | RAD REPORT ---
EXAM DESCRIPTION: [place] Single View01/16/2020 11:51 pm CLINICAL HISTORY: Chest pain COMPARISON: 2018 FINDINGS: The lungs appear clear of acute infiltrate. The heart is normal size IMPRESSION: No acute abnormalities displayed
== END 2020-01-17 01:36 | disposition home or self-care (01) ==
LOC: ER 21:17
DX: N39.0 Urinary tract infection, site not specified (principal); I10 Essential (primary) hypertension; E11.9 Type 2 diabetes mellitus without complications
CPT/HCPCS: 36415; 71045; 80048; 80076; 81003; 81025; 83735; 83880; 84484; 85025; 85379; 85610; 93005; 96361; 96374; 96375; 99284; J2405; J7030

== ENCOUNTER 2020-05-24 14:24 | Emergency (ER) | payer SELFPAY ==
--- OUTSIDE RECORDS SUMMARY | 2020-05-24 14:28 | XMS REPORT | Continuity of Care Document ---
:1970 Author Organization [facility] t Address [address] [place] [address] Care Team Providers Name Role Phone Unavailable Unavailable Unavailable Problems This patient has no known problems. Allergies, Adverse Reactions, Alerts This patient has no known allergies or adverse reactions. Medications This patient has no known medications. Procedures This patient has no known procedures. Results Test Description Test Time Test Comments Results Result [facility] e Comments SCR MAMM 2020-04-27 BILATERAL CATHERINE 16:32:47 CAD DIGITAL Name: Brayan : 1970 Sex: F - SCR MAMM BILATERAL CATHERINE CAD DIGITALBILATERAL DIGITAL SCREENING MAMMOGRAM 3D/2D WITH CAD: 04/24/2020LINICAL: Asymptomatic. Digital breast tomosynthesis was performed in addition to routine CC and MLO views. Current mammographic images were evaluated by either a NetVision M-Vu or a Architizer ImageChecker CAD (computer aided detection system). No prior exams were available for comparison. There are scattered fibroglandular tissues in both breasts. There is a benign density in the left breast. No suspicious mass, architectural distortion, malignant type calcification, or lymph node abnormality detected. IMPRESSION: BENIGNThere is no mammographic evidence of malignancy. Resume annual screening mammography in one year. Fabi Arredondo M.D. scg/penrad:04/27/2020 16:32:47 Baggage Screener: Keri Putnam MM, [facility] Mammographyletter sent: BIRADS 1-2 Normal Mammogram BI-RADS: 2 Benign
[2020-05-24 16:59] LABS: SARS-COV-2 RT PCR NEGATIVE (NEGATIVE)
--- NOTE | 2020-05-24 18:58 | RAD REPORT ---
EXAM DESCRIPTION: RAD - Chest Single View - 05/24/2020 6:27 pm CLINICAL HISTORY: COUGH COMPARISON: Portable January 2020 TECHNIQUE: AP portable chest image was obtained 05/24/2020 6:27 pm . FINDINGS: Lung volumes are very low. Portable technique and large body habitus further contribute to exam limitation. No mass or consolidations seen. No significant failure or volume overload identified. Trachea is midl ine. No measurable pleural effusion and no pneumothorax. No acute bony abnormality seen. No acute aor tic findings suspected. IMPRESSION: Limited study without acute cardiopulmonary finding.
--- NOTE | 2020-05-24 19:06 | ER ---
Nurse's Notes [facility] Name: Ever Cruz Age: 49 yrs Sex: Female : 1970 Arrival Date: 05/24/2020 Time: 14:27 Bed 24 Private MD: Diagnosis: Acute pharyngitis Presentation: 05/24 14:43 Chief complaint: Patient states: S/S started 05/22/2020, S/S headache, cough, sore ca1 throat. Today reports SOB. Coronavirus screen: Client denies travel out of the [place] in the last 14 days. cough unrelated to allergies, headache, sore throat, Client presents with at least one sign or symptom that may indicate coronavirus-19. Standard/surgical mask placed on the client. Provider contacted for isolation considerations. Client reports previous positive COVID test result. Date of collection: October 2019. Ebola Screen: Patient negative for fever greater than or equal to 101.5 degrees Fahrenheit, and additional compatible Ebola Virus Disease symptoms Patient denies exposure to infectious person. Patient denies travel to an Ebola-affected area in the 21 days before illness onset. No symptoms or risks identified at this time. Initial Sepsis Screen: Does the patient meet any 2 criteria? No. Patient's initial sepsis screen is negative. Does the patient have a suspected source of infection? No. Patient's initial sepsis screen is negative. Risk Assessment: Do you want to hurt yourself or someone else? Patient reports no desire to harm self or others. Onset of symptoms was May 24, 2020. 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 - Social history:: Smoking status: Patient denies any tobacco usage or history of. Screenin:00 Abuse screen: Denies threats or abuse. Denies injuries from another. Nutritional zb screening: No deficits noted. Tuberculosis screening: No symptoms or risk factors identified. Fall Risk None identified. Assessment: 18:00 General: Appears in no apparent distress. uncomfortable, Behavior is calm, cooperative, zb appropriate for age, Reports fever for 2-3 days, feeling ill for 2-3 days, fatigue for 2-3 days. Pain: Complains of pain in throat. Neuro: Level of Consciousness is awake, alert, obeys commands, Oriented to person, place, time, situation. Cardiovascular: Heart tones S1 S2 present Capillary refill < 3 seconds Patient's skin is warm and dry. Respiratory: Reports cough that is pain with cough Airway is patent Respiratory effort is even, unlabored, Respiratory pattern is regular, symmetrical, Breath sounds are clear bilaterally. Onset: The symptoms/episode began/occurred 2-3 days , the patient has mild shortness of breath. GI: Abdomen is round non-distended, obese, Bowel sounds present X 4 quads. Abd is soft and non tender X 4 quads. : No signs and/or symptoms were reported regarding the genitourinary system. EENT: Throat is reddened with gag reflex present, cervical adenopathy present bilaterally . Derm: Skin is intact, is healthy with good turgor, Skin is dry, Skin is normal, Skin temperature is warm. Musculoskeletal: Circulation, motion, and sensation intact. Capillary refill < 3 seconds, in bilateral fingers. Range of motion: intact in all extremities. Vital Signs: 14:43 BP 135 / 75; Pulse 100; Resp 18 S; Temp 97.5(TE); Pulse Ox 96% on R/A; Weight 124.74 kg ca1 (R); Height 5 ft. 6 in. (167.64 cm) (R); 18:30 BP 131 / 76; Pulse 93; Resp 16; Pulse Ox 100% on R/A; zb 19:26 BP 139 / 82; Pulse 93; Resp 16; Pulse Ox 96% on R/A; zb 14:43 Body Mass Index 44.39 (124.74 kg, 167.64 cm) ca1 ED Course: 14:27 Patient arrived in ED. as 14:45 Triage completed. ca1 14:45 Arm band placed on right wrist. ca1 17:41 Steven Verma PA is PHCP. jmm 17:41 Mando Gauthier MD is Attending Physician. m 18:27 Chest Single View XRAY In Process Unspecified. EDMS 18:59 Esther Looney, RN is Primary Nurse. zb 19:02 Patient has correct armband on for positive identification. Pulse ox on. NIBP on. Door zb closed. Noise minimized. 19:25 No provider procedures requiring assistance completed. Patient did not have IV access zb during this emergency room visit. Administered Medications: No medications were administered Outcome: 19:05 Discharge ordered by . efra 19:26 Discharged to home ambulatory. zb 19:26 Condition: stable 19:26 Discharge instructions given to patient, Instructed on discharge instructions, follow up and referral plans. medication usage, Demonstrated understanding of instructions, follow-up care, medications, Prescriptions given X 1. 19:28 Patient left the ED. zb Signatures: Dispatcher [employer] EDMS Steven Verma PA PA jmm Martinez, Amelia as Acob, Cheryl RN RN ca1 Esther Looney, VASILIY RN zb Corrections: (The following items were deleted from the chart) 14:47 14:43 Coronavirus screen: Client denies travel out of the [place] in the last 14 days. ca1 cough unrelated to allergies, headache, sore throat, Client presents with at least one sign or symptom that may indicate coronavirus-19. Standard/surgical mask placed on the client. Provider contacted for isolation considerations. ca1
--- NOTE | 2020-05-24 19:06 | EDPHYS ---
Physician Documentation [facility] Name: Ever Cruz Age: 49 yrs Sex: Female : 1970 Arrival Date: 05/24/2020 Time: 14:27 Bed 24 Private MD: ED Physician Mando Gauthier HPI: 05/24 14:47 This 49 yrs old Black Female presents to ER via Ambulatory with complaints of Cough, jmm Sore Throat, Headache. 14:47 The patient or guardian reports cough. Onset: The symptoms/episode began/occurred jmm gradually, 2 day(s) ago. Modifying factors: The symptoms are alleviated by nothing, the symptoms are aggravated by nothing. This is a 49 year old female with ahistory of dm, htn, that presents to the ED with complaints of cough, sore throat, beginning approx 2 days ago. . 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 - Social history:: Smoking status: Patient denies any tobacco usage or history of. ROS: 14:47 Eyes: Negative for injury, pain, redness, and discharge. jmm 14:47 Cardiovascular: Negative for chest pain, palpitations, and edema, Respiratory: Negative for shortness of breath, cough, wheezing, and pleuritic chest pain. 14:47 Constitutional: Positive for body aches, chills. 14:47 ENT: Positive for sore throat. 14:47 All other systems are negative. Exam: 14:47 Constitutional: This is a well developed, well nourished patient who is awake, alert, jmm and in no acute distress. Head/Face: atraumatic. Eyes: EOMI, no conjunctival erythema appreciated 14:47 Cardiovascular: Regular rate and rhythm. No edema appreciated Respiratory: Normal respirations, no respiratory distress appreciated Abdomen/GI: Non distended, soft Back: Normal ROM Skin: General appearance color normal MS/ Extremity: Moves all extremities, no obvious deformities appreciated, no edema noted to the lower extremities Neuro: Awake and alert, normal gait Psych: Behavior is normal, Mood is normal, Patient is cooperative and pleasant 14:47 ENT: Posterior pharynx: erythema, that is mild. Vital Signs: 14:43 BP 135 / 75; Pulse 100; Resp 18 S; Temp 97.5(TE); Pulse Ox 96% on R/A; Weight 124.74 kg ca1 (R); Height 5 ft. 6 in. (167.64 cm) (R); 18:30 BP 131 / 76; Pulse 93; Resp 16; Pulse Ox 100% on R/A; zb 19:26 BP 139 / 82; Pulse 93; Resp 16; Pulse Ox 96% on R/A; zb 14:43 Body Mass Index 44.39 (124.74 kg, 167.64 cm) ca1 MDM: 17:49 Patient medically screened. anny 19:04 Data reviewed: vital signs, nurses notes. Counseling: I had a detailed discussion with efra the patient and/or guardian regarding: the historical points, exam findings, and any diagnostic results supporting the discharge/admit diagnosis, lab results, radiology results, the need for outpatient follow up, to return to the emergency department if symptoms worsen or persist or if there are any questions or concerns that arise at home. ED course: Patient is alert and non toxic in appearance in the ED. No signs of resp distress. Imaging studies negative. Patient is advised to follow up with pcp and otherwise given strict return precautions. Patient understood and agrees with the plan of care. . 05/24 14:47 Order name: Strep; Complete Time: 17:51 ca1 05/24 16:40 Order name: Throat Culture EDMI 05/24 16:59 Order name: COVID-19/FLU A+B; Complete Time: 17:51 [facility] 05/24 17:52 Order name: Chest Single View XRAY; Complete Time: 19:01 efra Administered Medications: No medications were administered Disposition: 05/25 08:19 Co-signature as Attending Physician, Mando Gauthier MD. rn Disposition: 05/24/20 19:05 Discharged to Home. Impression: Acute pharyngitis. - Condition is Stable. - Discharge Instructions: Pharyngitis. - Prescriptions for Zithromax Z- Nolan 250 mg Oral Tablet - take 1 tablet by ORAL route as directed for 5 days Day 1 - take two (2) tablets one time. Day 2, 3, 4 , 5 take one (1) tablet once daily.; 6 tablet. - Medication Reconciliation Form, Thank You Letter, Antibiotic Education, Prescription Opioid Use, Work release form form. - Follow up: Private Physician; When: 2 - 3 days; Reason: Recheck today's complaints, Continuance of care, Re-evaluation by your physician. Signatures: Dispatcher [employer] EDMI Steven Verma PA PA jmm Nieto, Roman, MD MD rn Acob, VASILIY Eng RN, Zipporah, RN RN zb Corrections: (The following items were deleted from the chart) 05/24 16:16 14:47 Influenza Screen (A \T\ B)+BA.LAB.BRZ ordered. [facility] EDMI 16:16 14:47 CORONAVIRUS+MR.LAB.BRZ ordered. [facility] EDMI 19:28 19:05 05/24/2020 19:05 Discharged to Home. Impression: Acute pharyngitis. Condition is zb Stable. Forms are Medication Reconciliation Form, Thank You Letter, Antibiotic Education, Prescription Opioid Use. Follow up: Private Physician; When: 2 - 3 days; Reason: Recheck today's complaints, Continuance of care, Re-evaluation by your physician. efra
[2020-05-24 19:35] VITALS: TEMP 97.5
[2020-05-24 19:46] VITALS: BP 139/82; O2SAT 96
== END 2020-05-24 19:28 | disposition home or self-care (01) ==
LOC: ER 14:24
DX: J02.9 Acute pharyngitis, unspecified (principal); Z20.822 Contact with and (suspected) exposure to COVID-19; I10 Essential (primary) hypertension
CPT/HCPCS: 0240U; 71045; 87070; 87081; 99283

== ENCOUNTER 2021-04-13 18:54 | Emergency (ER) | payer SELFPAY ==
[2021-04-13 20:13] LABS: SARS-COV-2 RT PCR POSITIVE (NEGATIVE)
--- NOTE | 2021-04-13 20:36 | ER ---
Nurse's Notes [facility] Name: Ever Cruz Age: 50 yrs Sex: Female : 1970 Arrival Date: 04/13/2021 Time: 18:54 Bed 12 Private MD: Diagnosis: SARS-associated coronavirus as the cause of diseases classified elsewhere Presentation: 04/13 19:15 Chief complaint: Patient states: Last week I started coughing and had a sore throat, vc1 today around lunch time I started feeling. Coronavirus screen: Vaccine status: Patient reports receiving the 2nd dose of the covid vaccine. Had Moderna vaccine 1st, 2nd, plus booster chills, cough unrelated to allergies, fever, headache, shortness of breath, sore throat, Client presents with at least one sign or symptom that may indicate coronavirus-19. Standard/surgical mask placed on the client. Ebola Screen: No symptoms or risks identified at this time. Initial Sepsis Screen: Does the patient meet any 2 criteria? RR > 20 per min. No. Patient's initial sepsis screen is negative. Does the patient have a suspected source of infection? No. Patient's initial sepsis screen is negative. Risk Assessment: Do you want to hurt yourself or someone else? Patient reports no desire to harm self or others. Onset of symptoms was April 08, 2021. 19:15 Method Of Arrival: Ambulatory vc1 19:15 Acuity: LORNA 3 vc1 Triage Assessment: 19:22 General: Appears in no apparent distress. uncomfortable, ill, Behavior is calm, vc1 cooperative, appropriate for age. Pain: Complains of pain in uvula, left aspect of posterior pharynx and right aspect of posterior pharynx Pain currently is 10 out of 10 on a pain scale. Quality of pain is described as squeezing, Pain began gradually, Is continuous, Alleviated by Aggravated by Coughing. EENT: Throat is reddened Reports pain in uvula, left aspect of posterior pharynx and right aspect of posterior pharynx when swallowing. Neuro: No deficits noted. Respiratory: Reports shortness of breath at rest cough that is productive, persistent Airway is patent Respiratory effort is even, unlabored. 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 - Social history:: Smoking status: Patient denies any tobacco usage or history of. Screenin:48 Abuse screen: Denies threats or abuse. Nutritional screening: No deficits noted. al4 Tuberculosis screening: No symptoms or risk factors identified. Fall Risk None identified. Assessment: 20:49 General: Appears in no apparent distress. uncomfortable, Behavior is calm, cooperative. al4 Pain: Complains of pain in throat. Neuro: Level of Consciousness is awake, alert, obeys commands, Oriented to person, place, time, situation. Cardiovascular: Capillary refill < 3 seconds Patient's skin is warm and dry. Respiratory: Airway is patent Respiratory effort is even, unlabored, Respiratory pattern is regular, symmetrical. EENT: Reports pain in throat. Vital Signs: 19:15 BP 148 / 97; Pulse 98; Resp 28; Temp 99.7; Pulse Ox 98% on R/A; Weight 124.74 kg; vc1 Height 5 ft. 6 in. (167.64 cm); Pain 10/10; 20:51 BP 125 / 73; Pulse 92; Resp 22 S; Pulse Ox 99% on R/A; al4 19:15 Body Mass Index 44.39 (124.74 kg, 167.64 cm) vc1 ED Course: 18:54 Patient arrived in ED. am2 19:20 Triage completed. vc1 19:22 Arm band placed on right wrist. vc1 19:59 Luis Campoverde PA is PHCP. cp 19:59 Ebony Pino MD is Attending Physician. cp 20:48 Patient has correct armband on for positive identification. Call light in reach. Pulse al4 ox on. NIBP on. 20:48 No provider procedures requiring assistance completed. Patient did not have IV access al4 during this emergency room visit. Administered Medications: No medications were administered Outcome: 20:35 Discharge ordered by . shanna 20:48 Discharged to home ambulatory, with family. al4 20:48 Condition: stable 20:48 Discharge instructions given to patient, family, Instructed on discharge instructions, follow up and referral plans. medication usage, Demonstrated understanding of instructions, follow-up care, medications. 20:51 Patient left the ED. al4 Signatures: Luis Campoverde PA PA cp Moreno, Amanda am2 Natan Calabrese al4 Karen Mcdonough RN RN vc1
--- NOTE | 2021-04-13 20:36 | EDPHYS ---
Physician Documentation [facility] Name: Ever Cruz Age: 50 yrs Sex: Female : 1970 Arrival Date: 04/13/2021 Time: 18:54 Bed 12 Private MD: ED Physician Ebony Pino HPI: 04/13 20:20 This 50 yrs old Black Female presents to ER via Ambulatory with complaints of Breathing cp Difficulty, Sore Throat, Cough. 20:20 The patient presents with sore throat. Onset: The symptoms/episode began/occurred last cp week. Associated signs and symptoms: Pertinent positives: flu-like symptoms, Sore throat cough times 1 week, Pertinent negatives chest pain, diarrhea, vomiting, abdominal pain, shortness of breath. 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 - Social history:: Smoking status: Patient denies any tobacco usage or history of. ROS: 20:25 Constitutional: Positive for body aches, chills, Negative for fever, poor PO intake. cp 20:25 Eyes: Negative for injury, pain, redness, and discharge. cp 20:25 ENT: Positive for sore throat, Negative for difficulty swallowing, difficulty handling secretions. 20:25 Cardiovascular: Negative for chest pain, edema, palpitations. 20:25 Respiratory: Positive for cough, "sounds productive", Negative for shortness of breath, wheezing. 20:25 Abdomen/GI: Negative for abdominal pain, vomiting, diarrhea, constipation. 20:25 Neuro: Negative for altered mental status, dizziness, weakness. 20:25 All other systems are negative. Exam: 20:30 Constitutional: The patient appears in no acute distress, alert, awake, cp non-diaphoretic, non-toxic, well developed, well nourished, obese, obviously ill. 20:30 Head/Face: Normocephalic, atraumatic. cp 20:30 Eyes: Periorbital structures: appear normal, Conjunctiva: normal, no exudate, no injection, Sclera: no appreciated abnormality, Lids and lashes: 20:30 ENT: External ear(s): are unremarkable, Ear canal(s): are normal, clear, TM's: dullness, bilaterally, Nose: is normal, Mouth: Lips: moist, Oral mucosa: moist, Posterior pharynx: Airway: no evidence of obstruction, patent, Tonsils: no enlargement, no exudate, erythema, that is mild, exudate, is not appreciated. 20:30 Neck: ROM/movement: is normal, is supple, no meningismus, no nuchal rigidity. 20:30 Chest/axilla: Inspection: normal. 20:30 Cardiovascular: Rate: normal, Rhythm: regular. 20:30 Respiratory: the patient does not display signs of respiratory distress, Respirations: normal, no use of accessory muscles, no retractions, labored breathing, is not present, Breath sounds: decreased breath sounds, are not appreciated, stridor, is not appreciated, + upper airway congestion. wheezing: is not appreciated. 20:30 Abdomen/GI: Exam negative for discomfort, distension, guarding, Inspection: abdomen appears normal. 20:30 Neuro: Orientation: to person, place \\T\\ time. Mentation: is normal, Motor: moves all fours, strength is normal, Sensation: is normal. Vital Signs: 19:15 BP 148 / 97; Pulse 98; Resp 28; Temp 99.7; Pulse Ox 98% on R/A; Weight 124.74 kg; vc1 Height 5 ft. 6 in. (167.64 cm); Pain 10/10; 20:51 BP 125 / 73; Pulse 92; Resp 22 S; Pulse Ox 99% on R/A; al4 19:15 Body Mass Index 44.39 (124.74 kg, 167.64 cm) vc1 MDM: 20:21 Patient medically screened. cp 20:25 Differential diagnosis: group A strep tonsillitis, tonsillitis, COVID-19, influenza, cp pneumonia, meningitis. 20:35 Data reviewed: vital signs, nurses notes, lab test result(s). cp 20:35 Counseling: I had a detailed discussion with the patient and/or guardian regarding: the cp historical points, exam findings, and any diagnostic results supporting the discharge/admit diagnosis, lab results, to return to the emergency department if symptoms worsen or persist or if there are any questions or concerns that arise at home. ED course: VSS. Patient appears non-toxic and no signs of respiratory distress. Discussed positive results for COVID-19. Will discharge to home for continued monitoring and to quarantine. 04/13 19:21 Order name: COVID-19/FLU A+B (Document "Date of Onset" if Symptomatic); Complete Time: ll1 20:21 04/13 20:21 Interpretation: Reviewed. cp 04/13 19:21 Order name: Strep ll1 04/13 20:24 Order name: Throat Culture EDMS Administered Medications: No medications were administered Disposition Summary: 04/13/21 20:35 Discharge Ordered Location: Home cp Problem: new cp Symptoms: are unchanged cp Condition: Stable cp Diagnosis - SARS-associated coronavirus as the cause of diseases classified elsewhere cp Followup: cp - With: Private Physician - When: 2 - 3 days - Reason: Worsening of condition Discharge Instructions: - Discharge Summary Sheet cp - Aspirin and Your Heart cp - COVID-19 cp - Things to Know about the COVID-19 Pandemic - [facility] cp - 10 Things You Can Do to Manage Your COVID-19 Symptoms at Home - [facility] cp - COVID-19: Quarantine vs. Isolation - [facility] cp - Prevent the Spread of COVID-19 if You Are Sick - [facility] cp Forms: - Medication Reconciliation Form cp - Thank You Letter cp - Antibiotic Education cp - Prescription Opioid Use cp Prescriptions: - albuterol sulfate 90 mcg/actuation Inhalation HFA aerosol inhaler - inhale 2 puff by INHALATION route every 6 hours As needed; 1 Inhaler; Refills: cp 0, Product Selection Permitted - Zithromax Z-Nolan 250 mg Oral Tablet - take 1 tablet by ORAL route as directed for 5 days Day 1 - take two (2) tablets cp one time. Day 2, 3, 4 , 5 take one (1) tablet once daily.; 6 tablet; Refills: 0, Product Selection Permitted - Prednisone 20 mg Oral Tablet - take 2 tablets by ORAL route once daily for 5 days then take 1 tablet daily for cp 3 days, then 1/2 tablet daily for 2 days; 14 tablet; Refills: 0, Product Selection Permitted Addendum: 04/15/2021 07:58 Co-signature as Attending Physician, Ebony Pino MD I agree with the assessment and s p3 plan of care. Signatures: Dispatcher [employer] EDVA Luis Campoverde, MICHAEL PA Ebony Serra MD MD sp3 Karen Mcdonough RN RN vc1
[2021-04-13 21:18] VITALS: TEMP 99.7
[2021-04-13 21:33] VITALS: BP 125/73; O2SAT 99
== END 2021-04-13 20:51 | disposition home or self-care (01) ==
LOC: ER 18:54
DX: U07.1 COVID-19 (principal); I10 Essential (primary) hypertension; E11.9 Type 2 diabetes mellitus without complications
CPT/HCPCS: 0240U; 87070; 87081; 99283

== ENCOUNTER 2022-04-08 07:53 | Emergency (ER) | payer SELFPAY ==
--- OUTSIDE RECORDS SUMMARY | 2022-04-08 07:59 | XMS REPORT | Continuity of Care Document ---
:1970 Author Organization [facility] t Address [address] [place] [address] Care Team Providers Name Role Phone PCP, PATIENT DOES NOT HAVE A Primary Care Physician Unavaila ble SIDNEY WYNN Attending Clinician Unavailable Sidney Wynn MD Attending Clinician SIDNEY WYNN Admitting Clinician Unavailable Problems Condition Condition Condition Status Onset Resolution Last Treating Co mments Source Name Details Category Date Date Treatment Clinician Date Glucose Glucose Disease Active 2012-04 Overview: Univ ers tolerance tolerance 2-05 Formattin i ty of test test 00:00: g of this [place] abnormal abnormal 00 note Medica l might be Branch different from the original. Fasting 276, Hgb A1C- 11.4 Antepartum Antepartum Disease Active 2012-04 Overview : Univers anemia anemia 15 Formattin ity of 00:00: g of this [place] 00 note Medical might be Branch different from the original. 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 PLT- 408, decreased to 391. Encounter Encounter Disease Active 2012-04 Overview: Univers for for 1-14 Formattin ity of routine routine 00:00: g of this [place] gynecologi gynecologi 00 note Me dical galina galina might be Branch examinatio examinatio different n n from the original. 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 [employer] Allergies, Adverse Reactions, Alerts Allergy Allergy Status Severity Reaction(s) Onset Inactive Treating Comm ents Source Name Type Date Date Clinician Hmg-Coa Propensi Active Reductas ty to 3-04 e adverse 00:00: Inhibito reaction 00 rs to drug NO KNOWN Drug Active Univers ALLERGIE Class ity of [facility] Social History Social Habit Start Date Stop Date Quantity Comments Source History SDNE University o f Alcohol Frequency [facility] edical Branch History [facility] University o f Alcohol Std [place] Medical Drinks Branch History [facility] University o f Alcohol Binge [place] Medic al Branch Exposure to 2021-11-21 2021-12-01 Not sure University of SARS-CoV-2 00:00:00 12:03:00 [facility] (event) Branch Alcohol intake 2021-10-12 2021-10-12 Current drinker Unive rsity of 00:00:00 00:00:00 of alcohol [facility] (finding) Branch Alcohol Comment 2013-02-14 2013-02-14 on occasion Universi ty of 00:00:00 00:00:00 [facility] Tobacco use and 2013-02-14 2013-02-14 Smokeless tobacco Un iversity of exposure 00:00:00 00:00:00 non-user [facility] Sex [birth year] Universit y of 00:00:00 00:00:00 [facility] Smoking Status Start Date Stop Date Source Never smoked tobacco [facility] Medications Ordered Filled Start Stop Current Ordering Indication Dosage Frequency Signature Comments Components Source Medication Medication Date Date Medication? Clinician (SIG) Name Name HYDROcodone Yes 1{tbl} 1 tablet, Univers -acetaminop 12-01 Oral, ity of hen (NORCO) 19:50: Q6HPRN, Misael as 10-325 mg 31 Starting Medica l tablet 1 on Mon tablet 12/01/21 at 1450, Until Discontinu ed, Routine, Pain (scale 7-10) SUMAtriptan 2021- No 6mg 6 mg, Univ ers (IMITREX) 12-01 Subcutaneo ity of injection 6 19:30: 19:42 us, ONCE, [place] mg 00 :00 1 dose, On Medical Mon Branch 12/01/21 at 1430, NATHANIEL NaCl 0.9% 2021- No 1000mL at 999 Uni vers (NS) bolus 12-01 mL/hr, ity of infusion 19:00: 19:00 1,000 mL, Misael as 1,000 mL 00 :00 IV Medical Infusion, Branch ONCE, 1 dose, On Mon12/01/21 at 1400, STAT ondansetron 2021- No 4mg 4 mg, Slow Univers (ZOFRAN 12-01 IV Push, ity of (PF)) 19:00: 18:08 ONCE, 1 [place] injection 4 00 :00 dose, On Medi galina mg Mon [place] 12/01/21 at 1400, NATHANIEL ketorolac 2021- No 30mg 30 mg, Unive rs (TORADOL) 12-01 Slow IV ity of injection 19:00: 18:08 Push, [place] 30 mg 00 :00 ONCE, 1 Medical dose, On Branch Mon12/01/21 at 1400, NATHANIEL diphenhydrA 2021-0 2021- No 25mg 25 mg, Uni vers MINE 12-01 Slow IV ity of (BENADRYL) 18:00: 18:09 Push, [place] injection 00 :00 ONCE, 1 Medical 25 mg dose, On Branch Mon12/01/21 at 1300, STAT butalbital- 2021-0 Yes [id number] 1{tbl} Take 1 Univers acetaminoph 8-31 tablet by ity of en-caff 00:00: mouth [place] 50-325-40 00 every 6 Medical mg tablet (six) Branch hours as needed for Pain (scale 4-6). ketorolac 2021-0 Yes [id number] 10mg Take 1 Un camila 10 mg 8-31 tablet by ity of tablet 00:00: mouth [place] 00 every 8 Medical (eight) Branch hours. metoclopram 2021-0 Yes [id number] 10mg Take 1 Univers melvin HCl 10 8-31 tablet by ity of mg tablet 00:00: mouth [place] 00 every 6 Medical (six) Branch hours. Actos 30 mg 2021-0 No 1mg tablet 4-18 00:00: 00 lisinopril 2021-0 No 2mg 20 4-18 mg-hydrochl 00:00: orothiazide 00 12.5 mg tablet atorvastati 2021-0 No 1mg n 20 mg 4-18 tablet 00:00: 00 amlodipine 2-0 No 1mg 10 mg 4-18 tablet 00:00: 00 glimepiride 2-0 No 1mg 4 mg tablet 4-18 00:00: 00 metformin 2-0 No 1mg 850 mg 4-18 tablet 00:00: 00 gabapentin 2-0 No 1mg 300 mg 4-18 capsule 00:00: 00 Dose 2-0 No Unknown 4-18 00:00: 00 Dose 2-0 No Unknown 4-18 00:00: 00 Dose 2-0 No Unknown 4-18 00:00: 00 Dose 2-0 No Unknown 4-18 00:00: 00 Dose 2-0 No Unknown 4-18 00:00: 00 Dose 2-0 No Unknown 4-18 00:00: 00 Dose 2-0 No Unknown 4-18 00:00: 00 Dose 2022-0 No Unknown 4-18 00:00: 00 Dose 2022-0 No Unknown 4-18 00:00: 00 Dose 2022-0 No Unknown 4-18 00:00: 00 Dose 2022-0 No Unknown 4-18 00:00: 00 Dose 2022-0 No Unknown 4-18 00:00: 00 Dose 2022-0 No Unknown 4-18 00:00: 00 Dose 2022-0 No Unknown 4-18 00:00: 00 Dose 2022-0 No Unknown 4-18 00:00: 00 Dose 2022-0 No Unknown 4-18 00:00: 00 Dose 2022-0 No Unknown 4-18 00:00: 00 Dose 2022-0 No Unknown 4-18 00:00: 00 Dose 2022-0 No Unknown 4-18 00:00: 00 Dose 2022-0 No Unknown 4-18 00:00: 00 Dose 2022-0 No Unknown 4-18 00:00: 00 Dose 2022-0 No Unknown 4-18 00:00: 00 Dose 2022-0 No Unknown 4-18 00:00: 00 Dose 2022-0 No Unknown 4-18 00:00: 00 Dose 2022-0 No Unknown 4-18 00:00: 00 Dose 2022-0 No Unknown 4-18 00:00: 00 Dose 2022-0 No Unknown 4-18 00:00: 00 Dose 2022-0 No Unknown 4-18 00:00: 00 Dose 2022-0 No Unknown 4-18 00:00: 00 Dose 2022-0 No Unknown 4-18 00:00: 00 Dose 2022-0 No Unknown 3-21 00:00: 00 Dose 2022-0 No Unknown 3-21 00:00: 00 Dose 2022-0 No Unknown 3-21 00:00: 00 Dose 2022-0 No Unknown 3-21 00:00: 00 Dose 2022-0 No Unknown 3-21 00:00: 00 Dose 2022-0 No Unknown 3-21 00:00: 00 Dose 2022-0 No Unknown 3-21 00:00: 00 Dose 2022-0 No Unknown 3-21 00:00: 00 Dose 2022-0 No Unknown 3-21 00:00: 00 Dose 2022-0 No Unknown 3-21 00:00: 00 Dose 2022-0 No Unknown 3-21 00:00: 00 Dose 2022-0 No Unknown 3-21 00:00: 00 Dose 2022-0 No Unknown 3-21 00:00: 00 Dose 2022-0 No Unknown 3-21 00:00: 00 Dose 2022-0 No Unknown 3-21 00:00: 00 Dose 2022-0 No Unknown 3-21 00:00: 00 Dose 2022-0 No Unknown 3-21 00:00: 00 Dose 2022-0 No Unknown 3-21 00:00: 00 Dose 2022-0 No Unknown 3-15 00:00: 00 Dose 2022-0 No Unknown 3-15 00:00: 00 Dose 2022-0 No Unknown 3-15 00:00: 00 Dose 2022-0 No Unknown 3-15 00:00: 00 Dose 2022-0 No Unknown 3-15 00:00: 00 Dose 2022-0 No Unknown 3-15 00:00: 00 Dose 2022-0 No Unknown 3-15 00:00: 00 Dose 2022-0 No Unknown 3-15 00:00: 00 Dose 2022-0 No Unknown 3-15 00:00: 00 Dose 2022-0 No Unknown 3-15 00:00: 00 Dose 2022-0 No Unknown 3-15 00:00: 00 Dose 2022-0 No Unknown 3-15 00:00: 00 Dose 2022-0 No Unknown 3-15 00:00: 00 Dose 2022-0 No Unknown 3-15 00:00: 00 Dose 2022-0 No Unknown 3-15 00:00: 00 Dose 2022-0 No Unknown 3-15 00:00: 00 Dose 2022-0 No Unknown 3-15 00:00: 00 Dose 2022-0 No Unknown 3-15 00:00: 00 Dose 2022-0 No Unknown 3-15 00:00: 00 Dose 2022-0 No Unknown 3-15 00:00: 00 Dose 2022-0 No Unknown 3-15 00:00: 00 Dose 2022-0 No Unknown 3-15 00:00: 00 Dose 2022-0 No Unknown 3-15 00:00: 00 Dose 2022-0 No Unknown 3-15 00:00: 00 Dose 2022-0 No Unknown 3-15 00:00: 00 Dose 2022-0 No Unknown 3-15 00:00: 00 Dose 2-0 No Unknown 3-15 00:00: 00 metformin 2-0 No 1mg 850 mg 3-07 tablet 00:00: 00 Dose 2-0 No Unknown 1-24 00:00: 00 lisinopril 2-0 No 2mg 20 1-24 mg-hydrochl 00:00: orothiazide 00 12.5 mg tablet Actos 30 mg 2021-0 No 1mg tablet 1-24 00:00: 00 gabapentin 2-0 No 1mg 300 mg 1-24 capsule 00:00: 00 Bromfed DM 2021-0 No 10mg/5 2 mg-30 1-11 mL mg-10 mg/5 00:00: mL oral 00 syrup amlodipine 2020-1 No 1mg 10 mg 2-27 tablet 00:00: 00 paroxetine 2020-1 No 1mg 10 mg 2-27 tablet 00:00: 00 hydroxyzine 2020-1 No 1mg HCl 25 mg 2-27 tablet 00:00: 00 gabapentin 2020-1 No 1mg 300 mg 2-27 capsule 00:00: 00 Byetta 5 2020-04 No 5mcg/mL mcg/dose 2-20 ) 1.2 (250 00:00: mL mcg/mL)1.2 00 mL subcutaneou s pen injector glimepiride 2020-1 No 1mg 4 mg tablet 2-20 00:00: 00 metformin 2020-1 No 1mg 850 mg 2-20 tablet 00:00: 00 ibuprofen 1-1 No 1mg 800 mg 2-20 tablet 00:00: 00 glimepiride 2020-1 No 1mg 4 mg tablet 2-15 00:00: 00 metformin 2020-1 No 1mg 850 mg 2-15 tablet 00:00: 00 paroxetine 2020-1 No 1mg 10 mg 1-24 tablet 00:00: 00 amlodipine 2020-1 No 1mg 10 mg 1-24 tablet 00:00: 00 glimepiride 2020-1 No 1mg 4 mg tablet 1-24 00:00: 00 gabapentin 2020-1 No 1mg 300 mg 1-24 capsule 00:00: 00 Byetta 5 2020- No 5mcg/mL mcg/dose 0-28 ) 1.2 (250 00:00: mL mcg/mL)1.2 00 mL subcutaneou s pen injector atorvastati 2020-1 No 1mg n 20 mg 0-28 tablet 00:00: 00 metformin 1-1 No 1mg 850 mg 0-28 tablet 00:00: 00 hydroxyzine 2020-1 No 1mg HCl 25 mg 0-28 tablet 00:00: 00 gabapentin 1-1 No 1mg 300 mg 0-28 capsule 00:00: 00 [place]etta 5 2020-0 No 5mcg/mL mcg/dose 9-16 ) 1.2 (250 00:00: mL mcg/mL)1.2 00 mL subcutaneou s pen injector amlodipine 1-0 No 1mg 10 mg 9-16 tablet 00:00: 00 lisinopril 1-0 No 2mg 20 9-16 mg-hydrochl 00:00: orothiazide 00 12.5 mg tablet Actos 30 mg 2020-0 No 1mg tablet 9-16 00:00: 00 paroxetine 1-0 No 1mg 10 mg 9-16 tablet 00:00: 00 atorvastati 1-0 No 1mg n 20 mg 9-16 tablet 00:00: 00 glimepiride 1-0 No 1mg 4 mg tablet 9-16 00:00: 00 metformin 1-0 No 1mg 850 mg 9-16 tablet 00:00: 00 hydroxyzine 1-0 No 1mg HCl 25 mg 9-16 tablet 00:00: 00 gabapentin 1-0 No 1mg 300 mg 9-16 capsule 00:00: 00 metformin 1-0 No 1mg 850 mg 9-07 tablet 00:00: 00 Byetta 5 2020-0 No 5mcg/mL mcg/dose 6-12 ) 1.2 (250 00:00: mL mcg/mL)1.2 00 mL subcutaneou s pen injector Actos 30 mg 1-0 No 1mg tablet 6-12 00:00: 00 amlodipine 2021-0 No 1mg 10 mg 6-12 tablet 00:00: 00 lisinopril 1-0 No 2mg 20 6-12 mg-hydrochl 00:00: orothiazide 00 12.5 mg tablet glimepiride 2021-0 No 1mg 4 mg tablet 6-12 00:00: 00 metformin 1-0 No 1mg 850 mg 6-01 tablet 00:00: 00 gabapentin 2020-0 No 1mg 300 mg 6-01 capsule 00:00: 00 Kathie 5 2020-0 No 5mcg/mL mcg/dose 4-22 ) 1.2 (250 00:00: mL mcg/mL)1.2 00 mL subcutaneou s pen injector metformin 2020-0 No 1mg 850 mg 3-08 tablet 00:00: 00 gabapentin 2020-0 No 1mg 300 mg 3-08 capsule 00:00: 00 Flonase 2020-0 No 12mcg/a Allergy 2-22 ctuatio Relief 50 00:00: n mcg/actuati 00 on nasal spray,suspe nsion Bromfed DM 2020-0 No 75mg/5 2 mg-30 2-22 mL mg-10 mg/5 00:00: mL oral 00 syrup Kathie Monahan 2020-0 No 5mcg/mL mcg/dose 2-05 ) 1.2 (250 00:00: mL mcg/mL)1.2 00 mL subcutaneou s pen injector Actos 15 mg 2020-0 No 1mg tablet 2-05 00:00: 00 amlodipine 2020-0 No 1mg 10 mg 2-05 tablet 00:00: 00 lisinopril 2020-0 No 2mg 20 2-05 mg-hydrochl 00:00: orothiazide 00 12.5 mg tablet glimepiride 2020-0 No 1mg 4 mg tablet 2-05 00:00: 00 metformin 2020-0 No 1mg 850 mg 2-05 tablet 00:00: 00 gabapentin 2020-0 No 2mg 100 mg 2-05 capsule 00:00: 00 topiramate 2020-0 No 1mg 50 mg 1-06 tablet 00:00: 00 cyclobenzap 2020-0 No 1mg rine 7.5 mg 1-06 tablet 00:00: 00 sumatriptan 2019-1 No 1mg 25 mg 2-30 tablet 00:00: 00 metronidazo 2019- No 1mg le 500 mg 2-29 tablet 00:00: 00 Diflucan 2019- No mg 150 mg 2-29 tablet 00:00: 00 Kathie 5 2020-1 No 5mcg/mL mcg/dose 2-14 ) 1.2 (250 00:00: mL mcg/mL)1.2 00 mL subcutaneou s pen injector Actos 15 mg 2019-1 No 1mg tablet 2-14 00:00: 00 amlodipine 2019-1 No 1mg 10 mg 2-14 tablet 00:00: 00 lisinopril 2019-1 No 2mg 20 2-14 mg-hydrochl 00:00: orothiazide 00 12.5 mg tablet glimepiride 2019-1 No 1mg 4 mg tablet 2-14 00:00: 00 metformin 2019-1 No 1mg 850 mg 2-14 tablet 00:00: 00 gabapentin 2019-1 No 2mg 100 mg 2-14 capsule 00:00: 00 Actos 15 mg 2019-1 No 1mg tablet 0-19 00:00: 00 amlodipine 2019-1 No 1mg 10 mg 0-15 tablet 00:00: 00 lisinopril 2019-1 No 2mg 20 0-15 mg-hydrochl 00:00: orothiazide 00 12.5 mg tablet ibuprofen 2019-1 No 1mg 800 mg 0-15 tablet 00:00: 00 glimepiride 2019-1 No 1mg 4 mg tablet 0-15 00:00: 00 metformin 2019-1 No 1mg 850 mg 0-15 tablet 00:00: 00 gabapentin 2019-1 No 2mg 100 mg 0-15 capsule 00:00: 00 lisinopril 2020-0 No 2mg 20 9-23 mg-hydrochl 00:00: orothiazide 00 12.5 mg tablet glimepiride 2019-0 No 1mg 4 mg tablet 9-23 00:00: 00 metformin 2020-0 No 1mg 850 mg 9-23 tablet 00:00: 00 gabapentin 2020-0 No 2mg 100 mg 9-23 capsule 00:00: 00 triamcinolo 2020-0 No 1% ne 7-27 acetonide 00:00: 0.1 % 00 topical ointment Tessalon 2020-0 No 12mg Perles 100 7-27 mg capsule 00:00: 00 clotrimazol 2019-0 No 1% e 1 % 7-16 vaginal 00:00: cream 00 Tessalon 2020-0 No 12mg Perles 100 7-09 mg capsule 00:00: 00 gabapentin 2020-0 No 2mg 100 mg 6-25 capsule 00:00: 00 amlodipine 2020-0 No 1mg 10 mg 6-09 tablet 00:00: 00 amlodipine 2020-0 No 1mg 10 mg 6-03 tablet 00:00: 00 lisinopril 2020-0 No 2mg 20 6-03 mg-hydrochl 00:00: orothiazide 00 12.5 mg tablet glimepiride 2020-0 No 1mg 4 mg tablet 6-03 00:00: 00 metformin 2020-0 No 1mg 850 mg 6-03 tablet 00:00: 00 ibuprofen 2020-0 No 1mg 800 mg 6-03 tablet 00:00: 00 Zofran 4 mg 2020-0 No 1mg tablet 5-21 00:00: 00 ibuprofen 2020-0 No 1mg 800 mg 4-08 tablet 00:00: 00 amlodipine 2020-0 No 1mg 10 mg 4-07 tablet 00:00: 00 lisinopril 2020-0 No 2mg 20 4-07 mg-hydrochl 00:00: orothiazide 00 12.5 mg tablet glimepiride 2020-0 No 1mg 4 mg tablet 4-07 00:00: 00 metformin 2020-0 No 1mg 850 mg 4-07 tablet 00:00: 00 metformin 2020-0 No 1mg 850 mg 1-27 tablet 00:00: 00 ibuprofen 2019-1 No 1mg 800 mg 2-23 tablet 00:00: 00 mupirocin 2 2019-1 No 1% % topical 2-14 ointment 00:00: 00 tramadol 50 2019-1 No 1mg mg tablet 2-13 00:00: 00 Cleocin HCl 2019-1 No 1mg 300 mg 2-13 capsule 00:00: 00 lisinopril 2019-1 No 2mg 20 1-18 mg-hydrochl 00:00: orothiazide 00 12.5 mg tablet amlodipine 2019-1 No 1mg 10 mg 1-18 tablet 00:00: 00 glimepiride 2019-1 No 1mg 4 mg tablet 1-18 00:00: 00 metformin 2019-1 No 1mg 850 mg 1-18 tablet 00:00: 00 Macrobid 2019-1 No 1mg 100 mg 1-18 capsule 00:00: 00 ibuprofen 2019-0 No 1mg 800 mg 8-13 tablet 00:00: 00 metformin 2019-0 No 1mg 850 mg 8-13 tablet 00:00: 00 cyclobenzap 2019-0 No 12mg rine 5 mg 8-13 tablet 00:00: 00 amlodipine 2019-0 No 1mg 10 mg 7-10 tablet 00:00: 00 lisinopril 2019-0 No 2mg 20 7-10 mg-hydrochl 00:00: orothiazide 00 12.5 mg tablet glimepiride 2019-0 No 1mg 4 mg tablet 7-10 00:00: 00 cyclobenzap 2019-0 No 12mg rine 5 mg 7-03 tablet 00:00: 00 lisinopril 2019-0 No 2mg 20 6-27 mg-hydrochl 00:00: orothiazide 00 12.5 mg tablet amlodipine 2019-0 No 1mg 10 mg 6-27 tablet 00:00: 00 ibuprofen 2019-0 No 1mg 800 mg 6-27 tablet 00:00: 00 glimepiride 2019-0 No 1mg 4 mg tablet 6-27 00:00: 00 metformin 2019-0 No 1mg 850 mg 5-21 tablet 00:00: 00 fluticasone 2019-0 No 2mcg/ac propionate 3-06 tuation 50 00:00: mcg/actuati 00 on nasal spray,suspe nsion Tessalon 2019-0 No 12mg Perles 100 3-06 mg capsule 00:00: 00 cyclobenzap 2019-0 No 12mg rine 5 mg 2-11 tablet 00:00: 00 lisinopril 2018-1 No 2mg 20 2-31 mg-hydrochl 00:00: orothiazide 00 12.5 mg tablet amlodipine 2018-1 No 1mg 10 mg 2-31 tablet 00:00: 00 ibuprofen 2018-1 No 1mg 800 mg 2-31 tablet 00:00: 00 glimepiride 2018-1 No 1mg 4 mg tablet 2-31 00:00: 00 metformin 2018-1 No 1mg 850 mg 2-31 tablet 00:00: 00 gabapentin 2018-1 No 2mg 100 mg 2-31 capsule 00:00: 00 lisinopril 2018-0 No 2mg 20 8-15 mg-hydrochl 00:00: orothiazide 00 12.5 mg tablet sumatriptan 2018-0 No 1mg 25 mg 8-15 tablet 00:00: 00 cyclobenzap 2018-0 No 12mg rine 5 mg 8-13 tablet 00:00: 00 ibuprofen 2018-0 No 1mg 800 mg 8-13 tablet 00:00: 00 amlodipine 2018-0 No 1mg 10 mg 7-25 tablet 00:00: 00 Zofran ODT 2018-0 No 1mg 4 mg 6-21 disintegrat 00:00: ing tablet 00 lisinopril 2018-0 No 2mg 20 6-20 mg-hydrochl 00:00: orothiazide 00 12.5 mg tablet glimepiride 2018-0 No 1mg 4 mg tablet 6-20 00:00: 00 metformin 2018-0 No 1mg 850 mg 6-20 tablet 00:00: 00 ibuprofen 2018-0 No 1mg 800 mg 6-20 tablet 00:00: 00 cyclobenzap 2018-0 No 12mg rine 5 mg 6-20 tablet 00:00: 00 gabapentin 2018-0 No 1mg 100 mg 6-20 capsule 00:00: 00 Augmentin 2018-0 No 1mg 875 mg-125 5-22 mg tablet 00:00: 00 amlodipine 2018-0 No 1mg 10 mg 4-27 tablet 00:00: 00 metformin 2018-0 No 1mg 850 mg 4-27 tablet 00:00: 00 gabapentin 2018-0 No 1mg 100 mg 4-27 capsule 00:00: 00 amlodipine 2018-0 No 1mg 10 mg 4-25 tablet 00:00: 00 metformin 2018-0 No 1mg 850 mg 4-25 tablet 00:00: 00 gabapentin 2018-0 No 1mg 100 mg 4-25 capsule 00:00: 00 amlodipine 2018-0 No 1mg 10 mg 2-26 tablet 00:00: 00 phentermine 2018-0 No 1mg 37.5 mg 2-26 tablet 00:00: 00 amlodipine 2018-0 No 1mg 5 mg tablet - 00:00: 00 amlodipine 2018-0 No 2mg 5 mg tablet 05-01 00:00: 00 sumatriptan 2017-1 No 1mg 25 mg 2-06 tablet 00:00: 00 ibuprofen 2017-1 No 1mg 800 mg 2-06 tablet 00:00: 00 cyclobenzap 2017-1 No 12mg rine 5 mg 2-06 tablet 00:00: 00 Tricor 145 2017-1 No 1mg mg tablet 1- 00:00: 00 phentermine 2017-1 No 1mg 37.5 mg 1-08 tablet 00:00: 00 lisinopril 2017-1 No 2mg 20 0-27 mg-hydrochl 00:00: orothiazide 00 12.5 mg tablet glimepiride 2016-1 No 1mg 4 mg tablet 0-27 00:00: 00 metformin 2017-1 No 1mg 850 mg 0-27 tablet 00:00: 00 lovastatin 2017-1 No 1mg 20 mg 0-27 tablet 00:00: 00 gabapentin 2017-1 No 1mg 100 mg 0-27 capsule 00:00: 00 phentermine 2017-0 No 1mg 37.5 mg 9-28 tablet 00:00: 00 ibuprofen 2017-0 No 1mg 800 mg 7-12 tablet 00:00: 00 cyclobenzap 2017-0 No 12mg rine 5 mg 7-12 tablet 00:00: 00 lisinopril 2017-0 No 2mg 20 3-31 mg-hydrochl 00:00: orothiazide 00 12.5 mg tablet glimepiride 0 No 1mg 4 mg tablet 3-31 00:00: 00 metformin 2017-0 No 1mg 850 mg 3-31 tablet 00:00: 00 lovastatin 2017-0 No 1mg 20 mg 3-31 tablet 00:00: 00 gabapentin 2017-0 No 1mg 100 mg 3-31 capsule 00:00: 00 metformin 2017-0 No 1mg 850 mg 2-27 tablet 00:00: 00 metformin 2017-0 No 1mg 850 mg 1-07 tablet 00:00: 00 gabapentin 2017-0 No 1mg 100 mg 1-07 capsule 00:00: 00 lisinopril 2015-04 No 2mg 20 2-10 mg-hydrochl 00:00: orothiazide 00 12.5 mg tablet glimepiride 2015-04 No 1mg 4 mg tablet 2-10 00:00: 00 metformin 2015-1 No 1mg 1,000 mg 2-10 tablet 00:00: 00 lovastatin 2015-1 No 1mg 20 mg 2-10 tablet 00:00: 00 glimepiride 2014-04 No 1mg 4 mg tablet 2-31 00:00: 00 metformin 2014-1 No 1mg 1,000 mg 2-23 tablet 00:00: 00 Bactrim DS 2014-04 No 1mg 800 mg-160 2-23 mg tablet 00:00: 00 lovastatin 2014-04 No 1mg 20 mg 2-23 tablet 00:00: 00 lisinopril 2014-04 No 2mg 20 2-23 mg-hydrochl 00:00: orothiazide 00 12.5 mg tablet glimepiride 2014-04 No 1mg 4 mg tablet 2-23 00:00: 00 metformin 2014-04 No 1mg 500 mg 2-23 tablet 00:00: 00 lisinopril No 2mg 20 9-28 mg-hydrochl 00:00: orothiazide 00 12.5 mg tablet metformin No 1mg 500 mg 9-28 tablet 00:00: 00 lovastatin No 1mg 20 mg 9-03 tablet 00:00: 00 ferrous 2012-04 Yes 325mg Take 1 Tab Uni vers sulfate 1-15 by mouth ity of (IRON, 00:00: daily. [place] FERROUS 00 Medical SULFATE,) Branch 325 mg (65 mg iron) tablet NAPROXEN 2012-04 Yes Take by Univer s SODIUM 1-14 mouth. ity of (ALEVE 12:27: [place] ORAL) 21 Medical Branch DIPHENHYDRA 2012-04 Yes Take by Uni vers MINE HCL 1-14 mouth. ity of (BENADRYL 12:27: [place] ALLERGY 20 Medical ORAL) Branch pseudoephed 2012-04 Yes [id number] 60mg Take 1 Tab Univers rine 1-14 by mouth 3 ity of (SUDAFED) 00:00: (three) [place] 60 mg 00 times Medical tablet daily. Branch acetaminoph 2012-04 Yes [id number] 1000mg Take 2 Univers en (TYLENOL 1-14 Tabs by ity o f EXTRA 00:00: mouth [place] STRENGTH) 00 every 6 Medical 500 mg (six) Branch tablet hours as needed for Pain. Immunizations Ordered Filled Immunization Date Status Comments [facility] e Immunization Name Name Johnson QUAN-Rudolph 2021-03-23 Completed Vaccine 00:00:00 Johnson SCHMIDID-Rudolph 2020-07-10 Completed Vaccine 00:00:00 Johnson SCHMIDID-Rudolph 2020-06-17 Completed Vaccine 00:00:00 Influenza, 2020-03-16 Completed seasonal, inj 00:00:00 Influenza, 2018-01-08 Completed seasonal, inj 00:00:00 Influenza, 2017-03-08 Completed seasonal, inj 00:00:00 Td 2011-03-16 Completed University of 00:00:00 [facility] Influenza Virus 2010-03-10 Completed [facility] y of Vaccine 00:00:00 [facility] MMR 2010-03-10 Completed University 00:00:00 [facility] Vital Signs Vital Name Observation Time Observation Value Comments Source Systolic blood 2021-12-01 20:40:00 145 mm[Hg] Univer sity of pressure [facility] Diastolic blood 2021-12-01 20:40:00 85 mm[Hg] Unive rsity of pressure [facility] Heart rate 2021-12-01 20:40:00 89 /min [facility] Respiratory rate 2021-12-01 20:40:00 19 /min General acute hospital Oxygen saturation in 2021-12-01 20:40:00 100 /min [facility] Arterial blood by [facility] Pulse oximetry Branch Body temperature 2021-12-01 15:36:00 37.22 Nasima [facility] Body height 2021-12-01 15:36:00 170.2 cm [facility] Body weight 2021-12-01 15:36:00 108.863 kg [facility] BMI 2021-12-01 15:36:00 37.59 kg/m2 [facility] BP Systolic 2021-11-24 11:49:00 134 mm[Hg] BP Diastolic 2021-11-24 11:49:00 72 mm[Hg] Weight Measured 2021-11-24 11:49:00 241.20 pounds Height Measured 2021-11-24 11:49:00 65.00 inches Body Temperature 2021-11-24 11:49:00 97.80 degrees Heart Rate 2021-11-24 11:49:00 82.00 /min Respiratory Rate 2021-11-24 11:49:00 24.00 /min BP Systolic 2021-08-26 10:37:00 136 mm[Hg] BP Diastolic 2021-08-26 10:37:00 76 mm[Hg] Weight Measured 2021-08-26 10:37:00 269.20 pounds Height Measured 2021-08-26 10:37:00 65.00 inches Body Temperature 2021-08-26 10:37:00 97.50 degrees Heart Rate 2021-08-26 10:37:00 85.00 /min Respiratory Rate 2021-08-26 10:37:00 21.00 /min BP Systolic 2021-07-19 11:36:00 149 mm[Hg] BP Diastolic 2021-07-19 11:36:00 83 mm[Hg] Weight Measured 2021-07-19 11:36:00 298.80 pounds Height Measured 2021-07-19 11:36:00 65.00 inches Body Temperature 2021-07-19 11:36:00 98.10 degrees Heart Rate 2021-07-19 11:36:00 84.00 /min Respiratory Rate 2021-07-19 11:36:00 16.00 /min BP Systolic 2021-04-26 17:00:00 BP Diastolic 2021-04-26 17:00:00 Weight Measured 2021-04-26 17:00:00 304.00 pounds Height Measured 2021-04-26 17:00:00 65.00 inches Body Temperature 2021-04-26 17:00:00 Heart Rate 2021-04-26 17:00:00 Respiratory Rate 2021-04-26 17:00:00 BP Systolic 2021-04-13 18:00:00 BP Diastolic 2021-04-13 18:00:00 Weight Measured 2021-04-13 18:00:00 304.80 pounds Height Measured 2021-04-13 18:00:00 65.00 inches Body Temperature 2021-04-13 18:00:00 Heart Rate 2021-04-13 18:00:00 Respiratory Rate 2021-04-13 18:00:00 BP Systolic 2021-03-22 13:26:00 134 mm[Hg] BP Diastolic 2021-03-22 13:26:00 82 mm[Hg] Weight Measured 2021-03-22 13:26:00 304.80 pounds Height Measured 2021-03-22 13:26:00 65.00 inches Body Temperature 2021-03-22 13:26:00 98.30 degrees Heart Rate 2021-03-22 13:26:00 98.00 /min Respiratory Rate 2021-03-22 13:26:00 18.00 /min BP Systolic 2020-12-17 15:35:00 143 mm[Hg] BP Diastolic 2020-12-17 15:35:00 85 mm[Hg] Weight Measured 2020-12-17 15:35:00 306.40 pounds Height Measured 2020-12-17 15:35:00 65.00 inches Body Temperature 2020-12-17 15:35:00 98.70 degrees Heart Rate 2020-12-17 15:35:00 87.00 /min Respiratory Rate 2020-12-17 15:35:00 BP Systolic 2020-07-23 16:49:00 112 mm[Hg] BP Diastolic 2020-07-23 16:49:00 72 mm[Hg] Weight Measured 2020-07-23 16:49:00 287.80 pounds Height Measured 2020-07-23 16:49:00 65.00 inches Body Temperature 2020-07-23 16:49:00 98.40 degrees Heart Rate 2020-07-23 16:49:00 103.00 /min Respiratory Rate 2020-07-23 16:49:00 18.00 /min BP Systolic 2020-04-08 13:51:00 128 mm[Hg] BP Diastolic 2020-04-08 13:51:00 81 mm[Hg] Weight Measured 2020-04-08 13:51:00 287.60 pounds Height Measured 2020-04-08 13:51:00 65.00 inches Body Temperature 2020-04-08 13:51:00 98.60 degrees Heart Rate 2020-04-08 13:51:00 93.00 /min Respiratory Rate 2020-04-08 13:51:00 BP Systolic 2020-03-30 08:46:00 129 mm[Hg] BP Diastolic 2020-03-30 08:46:00 75 mm[Hg] Weight Measured 2020-03-30 08:46:00 290.20 pounds Height Measured 2020-03-30 08:46:00 65.00 inches Body Temperature 2020-03-30 08:46:00 98.70 degrees Heart Rate 2020-03-30 08:46:00 82.00 /min Respiratory Rate 2020-03-30 08:46:00 16.00 /min Procedures Procedure Date / Time Performed Performing Clinician Sourc e COMP. METABOLIC PANEL 2021-12-01 17:59:00 Sidney Wynn [facility] ([id number]) [facility] CBC WITH DIFF 2021-12-01 17:59:00 Sidney Wynn [place] [facility] URINALYSIS 2021-12-01 17:59:00 Sidney Wynn [place] [facility] CT HEAD WO CONTRAST 2021-12-01 17:38:33 Sidney Wynn [facility] CONSENT/REFUSAL FOR 2021-12-01 15:26:11 Doctor Unassigned, No Un [facility] DIAGNOSIS AND Name Medical Branch TREATMENT Plan of Care Planned Activity Planned Date Details Comments Source Goal Plan of Care Note [code = 97835-1] Goal Plan of Care Note [code = 09798-9] Goal Plan of Care Note [code = 96813-2] Goal Plan of Care Note [code = 89680-8] Goal Plan of Care Note [code = 85096-7] Goal Plan of Care Note [code = 71061-5] Goal Plan of Care Note [code = 19552-7] Goal Plan of Care Note [code = 77569-1] Goal Plan of Care Note [code = 74198-8] Goal Plan of Care Note [code = 14414-7] Goal Plan of Care Note [code = 84655-5] Goal Plan of Care Note [code = 01051-2] Goal Plan of Care Note [code = 73645-0] Goal Plan of Care Note [code = 22648-8] Goal Plan of Care Note [code = 66915-3] Goal Plan of Care Note [code = 88422-9] Goal Plan of Care Note [code = 47390-6] Goal Plan of Care Note [code = 88023-5] Goal Plan of Care Note [code = 17717-9] Goal Plan of Care Note [code = 33323-8] Goal Plan of Care Note [code = 81806-7] Goal Plan of Care Note [code = 44310-3] Goal Plan of Care Note [code = 01832-5] Goal Plan of Care Note [code = 30868-0] Goal Plan of Care Note [code = 29019-5] Goal Plan of Care Note [code = 42742-1] Goal Plan of Care Note [code = 58419-4] Goal Plan of Care Note [code = 09353-0] Goal Plan of Care Note [code = 65318-4] Goal Plan of Care Note [code = 55817-9] Goal Plan of Care Note [code = 21135-2] Goal Plan of Care Note [code = 60635-7] Goal Plan of Care Note [code = 75945-5] Goal Plan of Care Note [code = 86814-7] Goal Plan of Care Note [code = 81659-1] Goal Plan of Care Note [code = 04511-3] Goal Plan of Care Note [code = 90023-1] Goal Plan of Care Note [code = 65357-8] Goal Plan of Care Note [code = 99722-5] Goal Plan of Care Note [code = 99750-6] Goal Plan of Care Note [code = 21987-2] Goal Plan of Care Note [code = 77942-7] Goal Plan of Care Note [code = 69259-9] Goal Plan of Care Note [code = 02062-5] Goal Plan of Care Note [code = 00371-8] Goal Plan of Care Note [code = 32388-3] Goal Plan of Care Note [code = 65560-1] Goal Plan of Care Note [code = 60342-3] Goal Plan of Care Note [code = 31012-5] Encounters Start End Encounter Admission Attending Care Care Encounter Source Date/Time Date/Time Type Type Clinicians Facility Department ID 2022-03-17 2022-03-17 Outpatient [facility] [id number] 022 Ezequiel 15:37:43 15:37:43 1215 F Tate 2021-12-01 2021-12-01 Emergency X [facility] ERT [id number] [facility] 10:37:00 16:22:00 SIDNEY hernandez [facility] 2021-12-01 2021-12-[address] [facility] [id number] [employer] 10:37:00 16:22:00 Sidney MCCLAIN [id number] i [facility] [id number] [facility] [id number] [address] 2021-11-24 2021-11-24 Outpatient [id number] 00:00:00 00:00:00 Visit [phone] [id number] Results Test Description Test Time Test Comments Results Result Comments Source COMP. METABOLIC PANEL (83973) 2021-12-01 18:16:48 Test Item Value Reference Range Interpretation Comme nts NA (test code = 0502009244) 138 mmol/L 135-145 K (test code = 4283759157) 4.2 mmol/L 3.5-5 CL (test code = 6779865701) 98 mmol/L 98-108 CO2 TOTAL (test code = 4164415280) 30 mmol/L 23-31 AGAP (test code = 8463737667) 2-16 BUN (test code = 1383209598) 11 mg/dL 7-23 GLUCOSE (test code = 2583277854) 182 mg/dL 70-110 H CREATININE (test code = 0.60 mg/dL 0.5-1.04 3775880333) TOTAL BILI (test code = 0.8 mg/dL 0.1-1.1 1354979508) CALCIUM (test code = 6859505310) 9.5 mg/dL 8.6-10.6 T PROTEIN (test code = 4197611671) 7.7 g/dL 6.3-8.2 ALBUMIN (test code = 0731448542) 4.3 g/dL 3.5-5 ALK PHOS (test code = 1271113285) 100 U/L 34-122 ALTv (test code = 1742-6) 17 U/L 5-35 AST(SGOT) (test code = 8306296331) 24 U/L 13-40 eGFR (test code = 0235852259) mL/min/1.73m2 ABDIEL (test code = ABDIEL) Association of Glomerular Filtration Rate (GFR) and Staging of Kidney Disease* + +-------- + ------+| GFR (mL/min/1.73 m2) ?| With Kidney Damage ?| ?Without Kidney Damage+ +-- + +| ?>90 ?| ?Stage one ?| ? Normal ?+ +------- + -------+| ?60-89 ?| ?Stage two ?| ? Decreased GFR ? + +-------- + ------+| ?30-59 ?| ?Stage three ?| ? Stage three ? + +-------- + ------+| ?15-29 ?| ?Stage four ? | ? Stage four ?+ +------- + -------+| ?<15 (or dialysis) ? ?| ?Stage five ? | ? Stage five ?+ +------- + -------+ *Each stage assumes the associated GFR level has been in effect for at least three months. ?Stages 1 to 5, with or without kidney disease, indicate chronic kidney disease. Notes: Determination of stages one and two (with eGFR >59mL/min/1.73 m2) requires estimation of kidney damage for at least three months as defined by structural or functional abnormalities of the kidney, manifested by either:Pathological abnormalities or Markers of kidney damage (including abnormalities in the composition of the blood or urine or abnormalities in imaging tests). Lab Interpretation (test code = Abnormal 05031-6) [facility] WITH [id number] 18:15:07 Test Item Value Reference Range Interpretation Comments WBC (test code = See_Comment [Automated 5790-2) message] The sy stem which generated this result transmitted reference range : 4.30 - 11.10 10*3/?L. The reference range was not used to interpret this result as normal/abnormal . RBC (test code = See_Comment H [Automated 219-8) message] The sy stem which generated this result transmitted reference range : 3.93 - 5.25 10*6/?L. The reference range was not used to interpret this result as normal/abnormal . HGB (test code = 12.4 g/dL 11.6-15 718-7) HCT (test code = 38.8 % 35.7-45.2 4544-3) MCV (test code = 73.5 fL 80.6-95.5 L 787-2) MCH (test code = 23.5 pg 25.9-32.8 L 785-6) MCHC (test code = 32.0 g/dL 31.6-35.1 786-4) RDW-SD (test code = 40.1 fL 39-49.9 79150-6) RDW-CV (test code = 15.1 % 12-15.5 788-0) PLT (test code = See_Comment H [Automated 777-3) message] The sy stem which generated this result transmitted reference range : 166 - 358 10*3/ ?L. The reference r dwain was not used to interpret this result as normal/abnormal . MPV (test code = 9.3 fL 9.5-12.9 L 46800-9) NRBC/100 WBC (test See_Comment [Automat ed code = 9673306617) message] The system which generated this result transmitted reference range : 0.0 - 10.0 /100 WBCs. The refer ence range was not u sed to interpret th is result as normal/abnormal . NRBC x10^3 (test code See_Comment [Auto mated = 1973181301) message] The s ystem which generated this result transmitted reference range : 10*3/?L. The reference range was not used to interpret this result as normal/abnormal . GRAN MAT (NEUT) % 58.4 % (test code = 770-8) IMM GRAN % (test code 0.20 % = 1342909186) LYMPH % (test code = 30.6 % 736-9) MONO % (test code = 6.5 % 5905-5) EOS % (test code = 3.7 % 713-8) BASO % (test code = 0.6 % 706-2) GRAN MAT x10^3(ANC) 2.88 10*3/uL 1.88-7.09 (test code = 0012881113) IMM GRAN x10^3 (test 0-0.06 code = 8422959872) LYMPH x10^3 (test code 1.51 10*3/uL 1.32-3.29 = 731-0) MONO x10^3 (test code 0.32 10*3/uL 0.33-0.92 L = 742-7) EOS x10^3 (test code = 0.18 10*3/uL 0.03-0.39 711-2) BASO x10^3 (test code 0.03 10*3/uL 0.01-0.07 = 704-7) Lab Interpretation Abnormal (test code = 04421-2) [facility] W/AUTO DIFF WITH [id number] 06:06:18 Test Item Value Reference Range Interpretation Comments WBC (test code = 5.1 K/UL 3.5-11.0 1001) RBC (test code = 5.13 M/UL 3.80-5.40 1002) HEMOGLOBIN (test 12.0 G/DL 11.5-15.5 code = 1003) HEMATOCRIT (test 38.4 % 34.0-45.0 code = 1004) MCV (test code = 74.9 fL 80.0-99.0 L 1005) MCH (test code = 23.4 PG 25.0-33.0 L 1006) MCHC (test code = 31.3 G/DL 31.0-36.0 1007) RDW (test code = 15.3 % 11.5-15.0 H 1038) NEUTROPHILS (test 57.0 % code = 1008) LYMPHOCYTES (test 29.5 % code = 1010) MONOCYTES (test code 8.1 % = 1011) EOSINOPHILS (test 4.2 % code = 1012) BASOPHILS (test code 0.8 % = 1013) IMMATURE 0.4 % GRANULOCYTES (test code = 1036) NUCLEATED RBCS (test 0.0 /100 See_Comment [Autom ated message] code = 1065) WBC'S The system [employer] generated this result transmitted ref erence range: 0.0. The reference range was not used to int erpret this result as normal/abnormal . PLATELET COUNT (test 438 K/UL 130-400 H code = 1015) ABSOLUTE NEUTROPHILS 2.88 K/UL 1.50-7.50 (test code = 1066) ABSOLUTE LYMPHOCYTES 1.49 K/UL 1.00-4.00 (test code = 1067) ABSOLUTE MONOCYTES 0.41 K/UL 0.20-1.00 (test code = 1068) ABSOLUTE EOSINOPHILS 0.21 K/UL 0.00-0.50 (test code = 1040) ABSOLUTE BASOPHILS 0.04 K/UL 0.00-0.20 (test code = 1069) ABS IMMATURE 0.02 K/UL 0.00-0.10 GRANULOCYTES (test code = 1020) ABS NUCLEATED RBCS 0.00 K/UL 0.00-0.11 UNLESS O THERWISE (test code = 49451) INDICATE D, ALL TESTING PERFORM ED [facility]CLINICAL PATH [facility] [address] [place] [address] [facility] DIRECTOR: YOAN GILLILAND M.D. CLIA NUMBER [id number] CAP ACCREDITATION N O. [id number] CBC W/AUTO [id number] 00:00:00 Test Item Value Reference Range Interpretation Comments WBC (test code = 1001) 5.1 K/UL RBC (test code = 1002) 5.13 M/UL HEMOGLOBIN (test code = 1003) 12.0 G/DL HEMATOCRIT (test code = 1004) 38.4 % MCV (test code = 1005) 74.9 fL MCH (test code = 1006) 23.4 PG MCHC (test code = 1007) 31.3 G/DL RDW (test code = 1038) 15.3 % NEUTROPHILS (test code = 1008) 57.0 % LYMPHOCYTES (test code = 1010) 29.5 % MONOCYTES (test code = 1011) 8.1 % EOSINOPHILS (test code = 1012) 4.2 % BASOPHILS (test code = 1013) 0.8 % IMMATURE GRANULOCYTES (test 0.4 % code = 1036) NUCLEATED RBCS (test code = 0.0 /100WBC'S 1065) PLATELET COUNT (test code = 438 K/UL 1015) ABSOLUTE NEUTROPHILS (test code 2.88 K/UL = 1066) ABSOLUTE LYMPHOCYTES (test code 1.49 K/UL = 1067) ABSOLUTE MONOCYTES (test code = 0.41 K/UL 1068) ABSOLUTE EOSINOPHILS (test code 0.21 K/UL = 1040) ABSOLUTE BASOPHILS (test code = 0.04 K/UL 1069) ABS IMMATURE GRANULOCYTES (test 0.02 K/UL code = 1020) ABS NUCLEATED RBCS (test code = 0.00 K/UL 67541) CBC W/AUTO [id number] 00:00:00 Test Item Value Reference Range Interpretation Comments WBC (test code = 1001) 5.1 K/UL RBC (test code = 1002) 5.13 M/UL HEMOGLOBIN (test code = 1003) 12.0 G/DL HEMATOCRIT (test code = 1004) 38.4 % MCV (test code = 1005) 74.9 fL MCH (test code = 1006) 23.4 PG MCHC (test code = 1007) 31.3 G/DL RDW (test code = 1038) 15.3 % NEUTROPHILS (test code = 1008) 57.0 % LYMPHOCYTES (test code = 1010) 29.5 % MONOCYTES (test code = 1011) 8.1 % EOSINOPHILS (test code = 1012) 4.2 % BASOPHILS (test code = 1013) 0.8 % IMMATURE GRANULOCYTES (test 0.4 % code = 1036) NUCLEATED RBCS (test code = 0.0 /100WBC'S 1065) PLATELET COUNT (test code = 438 K/UL 1015) ABSOLUTE NEUTROPHILS (test code 2.88 K/UL = 1066) ABSOLUTE LYMPHOCYTES (test code 1.49 K/UL = 1067) ABSOLUTE MONOCYTES (test code = 0.41 K/UL 1068) ABSOLUTE EOSINOPHILS (test code 0.21 K/UL = 1040) ABSOLUTE BASOPHILS (test code = 0.04 K/UL 1069) ABS IMMATURE GRANULOCYTES (test 0.02 K/UL code = 1020) ABS NUCLEATED RBCS (test code = 0.00 K/UL 96024) CBC W/AUTO [id number] 00:00:00 Test Item Value Reference Range Interpretation Comments WBC (test code = 1001) 5.1 K/UL RBC (test code = 1002) 5.13 M/UL HEMOGLOBIN (test code = 1003) 12.0 G/DL HEMATOCRIT (test code = 1004) 38.4 % MCV (test code = 1005) 74.9 fL MCH (test code = 1006) 23.4 PG MCHC (test code = 1007) 31.3 G/DL RDW (test code = 1038) 15.3 % NEUTROPHILS (test code = 1008) 57.0 % LYMPHOCYTES (test code = 1010) 29.5 % MONOCYTES (test code = 1011) 8.1 % EOSINOPHILS (test code = 1012) 4.2 % BASOPHILS (test code = 1013) 0.8 % IMMATURE GRANULOCYTES (test 0.4 % code = 1036) NUCLEATED RBCS (test code = 0.0 /100WBC'S 1065) PLATELET COUNT (test code = 438 K/UL 1015) ABSOLUTE NEUTROPHILS (test code 2.88 K/UL = 1066) ABSOLUTE LYMPHOCYTES (test code 1.49 K/UL = 1067) ABSOLUTE MONOCYTES (test code = 0.41 K/UL 1068) ABSOLUTE EOSINOPHILS (test code 0.21 K/UL = 1040) ABSOLUTE BASOPHILS (test code = 0.04 K/UL 1069) ABS IMMATURE GRANULOCYTES (test 0.02 K/UL code = 1020) ABS NUCLEATED RBCS (test code = 0.00 K/UL 74749) SCR MAMM BILATERAL CATHERINE CAD [id number] 08:00:26 Name: Ever : 1970 Sex: F - SCR MAMM BILATERAL CATHERINE CAD DIGITALBILATERAL DIGITAL SCREENING MAMMOGRAM 3D/2D WITH CAD: 08/27/2021LINICAL: Asymptomatic. Digital breasttomosynthesis was performed in addition to routine CC and MLO views. Current mammographic images were evaluated by [employer] CAD (computer-aided detection) software. Comparison is made to exam dated 04/24/2020 mammogram - [facility]. There are scattered fibroglandular tissues in both breasts. No suspicious mass, architectural distortion, malignant type calcification, or lymph node abnormality detected. Breast architecture is stable compared to prior exams.IMPRESSION: NEGATIVEThere is no mammographic evidence of malignancy. Resume annual screening mammography in one year. Kash Ocampo M.D. et/penrad:09/01/2021 08:00:26 Cytogenetics Technologist: Rosana Thorpe MM, [facility] sent: BIRADS 1-2 Normal Mammogram BI-RADS: [address]/NG, NAAT, [id number] 20:54:49 Test Item Value Reference Range Interpretation Comments GONORRHEA, NAAT NEGATIVE NEGATIVE IMPORTA NT NOTICE: SEE (test code = [place] [address]) [email or web address] Note: Assay methodology is nucleic acid amplification b y systems protection technician m ediated amplification ( TMA) utilizing the A ptima Combo 2 Assay. CHLAMYDIA, NAAT NEGATIVE NEGATIVE IMPORTA NT NOTICE: SEE (test code = [place] [address]) [email or web address] Note: Assay methodology is nucleic acid amplification b y systems protection technician m ediated amplification ( TMA) utilizing the A ptima Combo 2 Assay. [id number] 05:31:41 Test Item Value Reference Range Interpretation Comments RPR RESULT (test code = NON-REACTIVE NON-REACTIVE 3501) RPR TITER (test code = 3500) NOT INDIC. TITER NOT INDIC. HIV 1/2 4TH GEN, RFLX [id number] 04:35:24 Test Item Value Reference Range Interpretation Comments HIV 1/2 4TH GEN, RFLX CONF (test NON-REACTIVE NON-REACTIVE code = 3514) HEPATITIS PANEL, [id number] 04:35:24 Test Item Value Reference Range Interpretation Comments HEPATITIS A IgM (test NON-REACTIVE NON-REACTIVE code = 87245) HEPATITIS B CORE IgM NON-REACTIVE NON-REACTIVE (test code = 4644) HEPATITIS B SURF AG NON-REACTIVE NON-REACTIVE (test code = 2739) HEPATITIS C ANTIBODY NON-REACTIVE NON-REACTIVE (test code = 4675) INTERPRETATION (NOTE) Hepatitis A HEPATITIS A: (test serology shows no code = 2552) evidence of acu te hepatitis A. INTERPRETATION (NOTE) Hepatitis B HEPATITIS B: (test serology shows no code = 14796) evidence of ac nancy hepatitis B and no indication of exposure to hepatitis B vir us in the previous si xto eight months. INTERPRETATION (NOTE) Hepatitis C HEPATITIS C: (test serology shows no code = 61619) evidence of ex posure to hepatitisC v irus at this time. I t can take up to 12 m onths after exposure tothe hepatitis C vir us for antibodies to become detectab le in the blood in ce rtain patients. UNLES S OTHERWISE INDIC ATED, ALL TESTING PERFORMED [facility]IES, [address] [place] [address] [facility] DIRECTOR: YOAN GILLILAND M.D. CLIA NUMBER [id number] [facility] [place]. [id number] HIV AB/AG COMBO RFLX [id number] 00:00:00 Test Item Value Reference Range Interpretation Comments HIV 1/2 4TH GEN, RFLX CONF (test NON-REACTIVE code = 3514) HIV AB/AG COMBO RFLX [id number] 00:00:00 Test Item Value Reference Range Interpretation Comments HIV 1/2 4TH GEN, RFLX CONF (test NON-REACTIVE code = 3514) [id number] 00:00:00 Test Item Value Reference Range Interpretation Comments RPR RESULT (test code = NON-REACTIVE 3501) RPR TITER (test code = 3500) NOT INDIC. TITER [id number] 00:00:00 Test Item Value Reference Range Interpretation Comments RPR RESULT (test code = NON-REACTIVE 3501) RPR TITER (test code = 3500) NOT INDIC. TITER [id number] 00:00:00 Test Item Value Reference Range Interpretation Comments RPR RESULT (test code = NON-REACTIVE 3501) RPR TITER (test code = 3500) NOT INDIC. TITER GC AND CHLAMYDIA, AMPLIFIED, [id number] 00:00:00 Test Item Value Reference Range Interpretation Comments GONORRHEA, NAAT (test code = 99976) NEGATIVE CHLAMYDIA, NAAT (test code = 83795) NEGATIVE GC AND CHLAMYDIA, AMPLIFIED, [id number] 00:00:00 Test Item Value Reference Range Interpretation Comments GONORRHEA, NAAT (test code = 07165) NEGATIVE CHLAMYDIA, NAAT (test code = 36490) NEGATIVE ACUTE HEPATITIS [id number] 00:00:00 Test Item Value Reference Range Interpretation Comments HEPATITIS A IgM (test code = NON-REACTIVE 40096) HEPATITIS B CORE IgM (test code NON-REACTIVE = 4644) HEPATITIS B SURF AG (test code = NON-REACTIVE 5379) HEPATITIS C ANTIBODY (test code NON-REACTIVE = 4675) INTERPRETATION HEPATITIS A: (NOTE) (test code = 2552) INTERPRETATION HEPATITIS B: (NOTE) (test code = 76973) INTERPRETATION HEPATITIS C: (NOTE) (test code = 26597) ACUTE HEPATITIS [id number] 00:00:00 Test Item Value Reference Range Interpretation Comments HEPATITIS A IgM (test code = NON-REACTIVE 57348) HEPATITIS B CORE IgM (test code NON-REACTIVE = 4644) HEPATITIS B SURF AG (test code = NON-REACTIVE 9039) HEPATITIS C ANTIBODY (test code NON-REACTIVE = 4627) INTERPRETATION HEPATITIS A: (NOTE) (test code = 2552) INTERPRETATION HEPATITIS B: (NOTE) (test code = 44006) INTERPRETATION HEPATITIS C: (NOTE) (test code = 47691) HEMOGLOBIN [id number] 02:07:09 Test Item Value Reference Range Interpretation Comments HEMOGLOBIN A1c (test 8.4 % 4.2-5.6 H [employer] AN DIABETES code = 53525) ASSOCIATION IDELINES FOR HGB A1C: PREDIABETES/INC REASED RISK . . . . . . . 5.7 -6.4% DIAGNOSIS OF DI ABETES . . . . . . . . . >=6 .5% WITH CONFIRMATION OR APPROPRIATE SYMPTOMS NOTE: ASSAY MAY BE AFFECTED BY HEMOGLOBINOPATH IES (SICKLE CELL ANEMIA, S- C DISEASE, OTHERS) OR MERCY FICIALLY LOWERED BY DECR EASED RED CELL SURVIVAL ( HEMOLYTIC ANEMIAS, BLOOD LOSS, ETC.). CONSIDER ALTERN ATE TESTING OR LABORATORY C ONSULTATION. UNLESS OTHERWIS E INDICATED, ALL TESTING PER [facility] ATCLINICAL PATH [facility], [place] [address] LABORATORY DIRE CTOR: YOAN GILLILAND M.D. CLIA NUMBER [id number] [facility] [place]. [id number] HEMOGLOBIN [id number] 00:00:00 Test Item Value Reference Range Interpretation Comments HEMOGLOBIN A1c (test code = 20883) 8.4 % HEMOGLOBIN [id number] 00:00:00 Test Item Value Reference Range Interpretation Comments HEMOGLOBIN A1c (test code = 54730) 8.4 % HEMOGLOBIN [id number] 00:00:00 Test Item Value Reference Range Interpretation Comments HEMOGLOBIN A1c (test code = 36207) 8.4 % SARS-CoV-2 (COVID-19), RT-PCR/[id number] 12:50:25 Test Item Value Reference Interpretation Comments Range SARS-CoV-2 NEGATIVE SEE NOTE SARS-CoV-2 RNA NOT INTERPRETATION DETECTEDNegat sandro (test code = 07666) results do not preclude SARS-CoV-2 infe ction and should notb e used as the sole bas is for patient managem ent decisions. Negativeresults must be combined with c linical observations, p atient history,and epidemiological information. Op timum specimen types and timingfor peak viral levels during infections caus ed by SARS-CoV-2 have notbeen determined. Col lection of multiple spe cimens or types ofspec imens may be necessar y to detect virus. I mproper specimencollect ion and handling, seque nce variability und er primers/probes, or organism presen t below the limit of de tection may lead to falsenegative r esults. Positive and ne gative predictive valu es oftesting are h ighly dependent on prevalence. Fal se negative testre sults are more likely when prevalence is h igh. SOURCE (test code = NOT SPECIFIED Note: [place] [address]) Michael Estella Winchester l-Time RT-PCR. The exp ected result or refer ence range is NEGATI VE (Not Detected). For more information reg arding COVID-19 testin g to include clinicalinforma tion, methodology det ail, intended use, F DA authorization andrecommended fact sheets for rubens ents or healthcare prov iders, see NewTest Announcement: SARS-CoV-2 (COV ID-19) by NAAT at URL below (note,fact shee ts are provided by met hod given in report:[email or web address] [email or web address] Alternatively, see downloadable PD F fact sheet at:[email or web address]. [email or web address] [place]/[email or web address]-RT -PCR UNLESS OTHERWIS E INDICATED, ALL TESTING PERFORMED [facility] [employer] [address] [place] [address] 4 LABORATORY DIRE CTOR: YOAN GRAY M.D. CLIA NUMBER [id number] [place] [id number] SARS-CoV-2 (COVID-19) by RT-PCR (HIGH RISK)2021-04-24 00:00:00 Test Item Value Reference Range Interpretation Comments SARS-CoV-2 INTERPRETATION (test NEGATIVE code = 64927) SOURCE (test code = 23773) NOT SPECIFIED SARS-CoV-2 (COVID-19) by RT-PCR (HIGH RISK)2021-04-24 00:00:00 Test Item Value Reference Range Interpretation Comments SARS-CoV-2 INTERPRETATION (test NEGATIVE code = 09716) SOURCE (test code = 41132) NOT SPECIFIED LIPID [id number] 04:20:31 Test Item Value Reference Range Interpretation Comments CHOLESTEROL (test 139 MG/DL <200 code = 2210) TRIGLYCERIDES (test 118 MG/DL <150 code = 2232) HDL CHOLESTEROL (test 43 MG/DL >39 code = 2220) CALC LDL CHOL (test 76 MG/DL <100 NOTE: C ALCULATED LDL code = 2237) IS BASED ON BENJIE-MORRIS METHOD WHICHINCLUDES ADJUSTABLE TRIGLYCERIDE:VL DL CHOLESTEROL RAT IO.THIS FACTOR VARIES B Y MEASURED TRIGLY CERIDE AND NON-HDLCHOL ESTEROL CONCENTRATIONS WITH INCREASED CALCU LATED LDL SEENIN HIGH ER TRIGLYCERIDE OR LOWER NON-HDL SPECIME NS. FOR MOREINFORMATION , SEE CLIENT ANNOUNCE MENT AT [email or web address] RISK RATIO LDL/HDL 1.77 RATIO <3.22 UNLESS O THERWISE (test code = 2238) INDICATED , ALL TESTING PERFORMED [facility], [address] [address] LABOR ATORY DIRECTOR: Claire VALLEJOIA NUMBER [id number] CAP ACCREDITATION N O. [id number] HEMOGLOBIN [id number] 03:07:21 Test Item Value Reference Range Interpretation Comments HEMOGLOBIN A1c (test 11.3 % 4.2-5.6 H AMERIC AN DIABETES code = 45616) ASSOCIATION IDELINES FOR HGB A1C: PREDIABETES/INC REASED RISK . . . . . . . 5 .7-6.4% DIAGNOSIS OF DI ABETES . . . . . . . . . >=6 .5% WITH CONFIRMATION OR APPROPRIATE SYMPTOMS NOTE: ASSAY MAY BE AFFECTED BY HEMOGLOBINOPATH IES (SICKLE CELL ANEMIA, S- C DISEASE, OTHERS) OR [facility] FICIALLY LOWERED BY DECR EASED RED CELL SURVIVAL ( HEMOLYTIC ANEMIAS, BLOOD LOSS, ETC.). CONSIDER ALTERN ATE TESTING OR LABORATORY C ONSULTATION. HEMOGLOBIN [id number] 00:00:00 Test Item Value Reference Range Interpretation Comments HEMOGLOBIN A1c (test code = 79645) 11.3 % HEMOGLOBIN [id number] 00:00:00 Test Item Value Reference Range Interpretation Comments HEMOGLOBIN A1c (test code = 36908) 11.3 % HEMOGLOBIN [id number] 00:00:00 Test Item Value Reference Range Interpretation Comments HEMOGLOBIN A1c (test code = 40727) 11.3 % LIPID [id number] 00:00:00 Test Item Value Reference Range Interpretation Comments CHOLESTEROL (test code = 2210) 139 MG/DL TRIGLYCERIDES (test code = 2232) 118 MG/DL HDL CHOLESTEROL (test code = 2220) 43 MG/DL CALC LDL CHOL (test code = 2237) 76 MG/DL RISK RATIO LDL/HDL (test code = 1.77 RATIO 2238) LIPID [id number] 00:00:00 Test Item Value Reference Range Interpretation Comments CHOLESTEROL (test code = 2210) 139 MG/DL TRIGLYCERIDES (test code = 2232) 118 MG/DL HDL CHOLESTEROL (test code = 2220) 43 MG/DL CALC LDL CHOL (test code = 2237) 76 MG/DL RISK RATIO LDL/HDL (test code = 1.77 RATIO 2238) CBC W/AUTO [id number] 00:00:00 Test Item Value Reference Range Interpretation Comments WBC (test code = 1001) 6.2 K/UL RBC (test code = 1002) 4.75 M/UL HEMOGLOBIN (test code = 1003) 11.1 G/DL HEMATOCRIT (test code = 1004) 34.9 % MCV (test code = 1005) 73.5 fL MCH (test code = 1006) 23.4 PG MCHC (test code = 1007) 31.8 G/DL RDW (test code = 1038) 14.9 % NEUTROPHILS (test code = 1008) 61.6 % LYMPHOCYTES (test code = 1010) 28.9 % MONOCYTES (test code = 1011) 6.8 % EOSINOPHILS (test code = 1012) 1.8 % BASOPHILS (test code = 1013) 0.3 % IMMATURE GRANYLOCYTES (test 0.6 % code = 1036) NUCLEATED RBCS (test code = 0.0 /100WBC'S 1065) PLATELET COUNT (test code = 427 K/UL 1015) ABSOLUTE NEUTROPHILS (test code 3.79 K/UL = 1066) ABSOLUTE LYMPHOCYTES (test code 1.78 K/UL = 1067) ABSOLUTE MONOCYTES (test code = 0.42 K/UL 1068) ABSOLUTE EOSINOPHILS (test code 0.11 K/UL = 1040) ABSOLUTE BASOPHILS (test code = 0.02 K/UL 1069) ABS IMMATURE GRANULOCYTES (test 0.04 K/UL code = 1020) ABS NUCLEATED RBCS (test code = 0.00 K/UL 02003) CBC W/AUTO [id number] 00:00:00 Test Item Value Reference Range Interpretation Comments WBC (test code = 1001) 6.2 K/UL RBC (test code = 1002) 4.75 M/UL HEMOGLOBIN (test code = 1003) 11.1 G/DL HEMATOCRIT (test code = 1004) 34.9 % MCV (test code = 1005) 73.5 fL MCH (test code = 1006) 23.4 PG MCHC (test code = 1007) 31.8 G/DL RDW (test code = 1038) 14.9 % NEUTROPHILS (test code = 1008) 61.6 % LYMPHOCYTES (test code = 1010) 28.9 % MONOCYTES (test code = 1011) 6.8 % EOSINOPHILS (test code = 1012) 1.8 % BASOPHILS (test code = 1013) 0.3 % IMMATURE GRANYLOCYTES (test 0.6 % code = 1036) NUCLEATED RBCS (test code = 0.0 /100WBC'S 1065) PLATELET COUNT (test code = 427 K/UL 1015) ABSOLUTE NEUTROPHILS (test code 3.79 K/UL = 1066) ABSOLUTE LYMPHOCYTES (test code 1.78 K/UL = 1067) ABSOLUTE MONOCYTES (test code = 0.42 K/UL 1068) ABSOLUTE EOSINOPHILS (test code 0.11 K/UL = 1040) ABSOLUTE BASOPHILS (test code = 0.02 K/UL 1069) ABS IMMATURE GRANULOCYTES (test 0.04 K/UL code = 1020) ABS NUCLEATED RBCS (test code = 0.00 K/UL 14827) CBC W/AUTO [id number] 00:00:00 Test Item Value Reference Range Interpretation Comments WBC (test code = 1001) 6.2 K/UL RBC (test code = 1002) 4.75 M/UL HEMOGLOBIN (test code = 1003) 11.1 G/DL HEMATOCRIT (test code = 1004) 34.9 % MCV (test code = 1005) 73.5 fL MCH (test code = 1006) 23.4 PG MCHC (test code = 1007) 31.8 G/DL RDW (test code = 1038) 14.9 % NEUTROPHILS (test code = 1008) 61.6 % LYMPHOCYTES (test code = 1010) 28.9 % MONOCYTES (test code = 1011) 6.8 % EOSINOPHILS (test code = 1012) 1.8 % BASOPHILS (test code = 1013) 0.3 % IMMATURE GRANYLOCYTES (test 0.6 % code = 1036) NUCLEATED RBCS (test code = 0.0 /100WBC'S 1065) PLATELET COUNT (test code = 427 K/UL 1015) ABSOLUTE NEUTROPHILS (test code 3.79 K/UL = 1066) ABSOLUTE LYMPHOCYTES (test code 1.78 K/UL = 1067) ABSOLUTE MONOCYTES (test code = 0.42 K/UL 1068) ABSOLUTE EOSINOPHILS (test code 0.11 K/UL = 1040) ABSOLUTE BASOPHILS (test code = 0.02 K/UL 1069) ABS IMMATURE GRANULOCYTES (test 0.04 K/UL code = 1020) ABS NUCLEATED RBCS (test code = 0.00 K/UL 08878) HEMOGLOBIN [id number] 00:00:00 Test Item Value Reference Range Interpretation Comments HEMOGLOBIN A1c (test code = 44513) 9.9 % HEMOGLOBIN [id number] 00:00:00 Test Item Value Reference Range Interpretation Comments HEMOGLOBIN A1c (test code = 23433) 9.9 % HEMOGLOBIN [id number] 00:00:00 Test Item Value Reference Range Interpretation Comments HEMOGLOBIN A1c (test code = 52438) 9.9 % VITAMIN D, 25 [id number] 00:00:00 Test Item Value Reference Range Interpretation Comments VITAMIN D, 25 OH (test code = 4958) 11 NG/ML VITAMIN D, 25 [id number] 00:00:00 Test Item Value Reference Range Interpretation Comments VITAMIN D, 25 OH (test code = 4958) 11 NG/ML [id number] 00:00:00 Test Item Value Reference Range Interpretation Comments TSH, THIRD GENERATION (test code 0.968 UIU/ML = 2821) [id number] 00:00:00 Test Item Value Reference Range Interpretation Comments TSH, THIRD GENERATION (test code 0.968 UIU/ML = 2821) [id number] 00:00:00 Test Item Value Reference Range Interpretation Comments TSH, THIRD GENERATION (test code 0.968 UIU/ML = 2821) CBC W/AUTO [id number] 00:00:00 Test Item Value Reference Range Interpretation Comments WBC (test code = 1001) 8.7 K/UL RBC (test code = 1002) 5.02 M/UL HEMOGLOBIN (test code = 1003) 12.0 G/DL HEMATOCRIT (test code = 1004) 37.6 % MCV (test code = 1005) 74.9 fL MCH (test code = 1006) 23.9 PG MCHC (test code = 1007) 31.9 G/DL RDW (test code = 1038) 15.2 % NEUTROPHILS (test code = 1008) 58.9 % LYMPHOCYTES (test code = 1010) 31.1 % MONOCYTES (test code = 1011) 6.8 % EOSINOPHILS (test code = 1012) 1.9 % BASOPHILS (test code = 1013) 0.6 % IMMATURE GRANULOCYTES (test 0.7 % code = 1036) NUCLEATED RBCS (test code = 0.0 /100WBC'S 1065) PLATELET COUNT (test code = 472 K/UL 1015) ABSOLUTE NEUTROPHILS (test code 5.14 K/UL = 1066) ABSOLUTE LYMPHOCYTES (test code 2.71 K/UL = 1067) ABSOLUTE MONOCYTES (test code = 0.59 K/UL 1068) ABSOLUTE EOSINOPHILS (test code 0.17 K/UL = 1040) ABSOLUTE BASOPHILS (test code = 0.05 K/UL 1069) ABS IMMATURE GRANULOCYTES (test 0.06 K/UL code = 1020) ABS NUCLEATED RBCS (test code = 0.00 K/UL 88742) CBC W/AUTO [id number] 00:00:00 Test Item Value Reference Range Interpretation Comments WBC (test code = 1001) 8.7 K/UL RBC (test code = 1002) 5.02 M/UL HEMOGLOBIN (test code = 1003) 12.0 G/DL HEMATOCRIT (test code = 1004) 37.6 % MCV (test code = 1005) 74.9 fL MCH (test code = 1006) 23.9 PG MCHC (test code = 1007) 31.9 G/DL RDW (test code = 1038) 15.2 % NEUTROPHILS (test code = 1008) 58.9 % LYMPHOCYTES (test code = 1010) 31.1 % MONOCYTES (test code = 1011) 6.8 % EOSINOPHILS (test code = 1012) 1.9 % BASOPHILS (test code = 1013) 0.6 % IMMATURE GRANULOCYTES (test 0.7 % code = 1036) NUCLEATED RBCS (test code = 0.0 /100WBC'S 1065) PLATELET COUNT (test code = 472 K/UL 1015) ABSOLUTE NEUTROPHILS (test code 5.14 K/UL = 1066) ABSOLUTE LYMPHOCYTES (test code 2.71 K/UL = 1067) ABSOLUTE MONOCYTES (test code = 0.59 K/UL 1068) ABSOLUTE EOSINOPHILS (test code 0.17 K/UL = 1040) ABSOLUTE BASOPHILS (test code = 0.05 K/UL 1069) ABS IMMATURE GRANULOCYTES (test 0.06 K/UL code = 1020) ABS NUCLEATED RBCS (test code = 0.00 K/UL 69724) CBC W/AUTO [id number] 00:00:00 Test Item Value Reference Range Interpretation Comments WBC (test code = 1001) 8.7 K/UL RBC (test code = 1002) 5.02 M/UL HEMOGLOBIN (test code = 1003) 12.0 G/DL HEMATOCRIT (test code = 1004) 37.6 % MCV (test code = 1005) 74.9 fL MCH (test code = 1006) 23.9 PG MCHC (test code = 1007) 31.9 G/DL RDW (test code = 1038) 15.2 % NEUTROPHILS (test code = 1008) 58.9 % LYMPHOCYTES (test code = 1010) 31.1 % MONOCYTES (test code = 1011) 6.8 % EOSINOPHILS (test code = 1012) 1.9 % BASOPHILS (test code = 1013) 0.6 % IMMATURE GRANULOCYTES (test 0.7 % code = 1036) NUCLEATED RBCS (test code = 0.0 /100WBC'S 1065) PLATELET COUNT (test code = 472 K/UL 1015) ABSOLUTE NEUTROPHILS (test code 5.14 K/UL = 1066) ABSOLUTE LYMPHOCYTES (test code 2.71 K/UL = 1067) ABSOLUTE MONOCYTES (test code = 0.59 K/UL 1068) ABSOLUTE EOSINOPHILS (test code 0.17 K/UL = 1040) ABSOLUTE BASOPHILS (test code = 0.05 K/UL 1069) ABS IMMATURE GRANULOCYTES (test 0.06 K/UL code = 1020) ABS NUCLEATED RBCS (test code = 0.00 K/UL 92434) HEMOGLOBIN [id number] 00:00:00 Test Item Value Reference Range Interpretation Comments HEMOGLOBIN A1c (test code = 09811) 9.3 % HEMOGLOBIN [id number] 00:00:00 Test Item Value Reference Range Interpretation Comments HEMOGLOBIN A1c (test code = 74109) 9.3 % HEMOGLOBIN [id number] 00:00:00 Test Item Value Reference Range Interpretation Comments HEMOGLOBIN A1c (test code = 48157) 9.3 % LIPID [id number] 00:00:00 Test Item Value Reference Range Interpretation Comments CHOLESTEROL (test code = 2210) 184 MG/DL TRIGLYCERIDES (test code = 2232) 179 MG/DL HDL CHOLESTEROL (test code = 2220) 49 MG/DL CALC LDL CHOL (test code = 2237) 105 MG/DL RISK RATIO LDL/HDL (test code = 2.14 RATIO 2238) LIPID [id number] 00:00:00 Test Item Value Reference Range Interpretation Comments CHOLESTEROL (test code = 2210) 184 MG/DL TRIGLYCERIDES (test code = 2232) 179 MG/DL HDL CHOLESTEROL (test code = 2220) 49 MG/DL CALC LDL CHOL (test code = 2237) 105 MG/DL RISK RATIO LDL/HDL (test code = 2.14 RATIO 2238) COMPREHENSIVE METABOLIC [id number] 00:00:00 Test Item Value Reference Range Interpretation Comments GLUCOSE (test code = 2217) 128 MG/DL BUN (test code = 2208) 12 MG/DL CREATININE (test code = 2214) 0.80 MG/DL eGFR AMER. (test code 101 ML/MIN/1.73 = 65206) eGFR NON- AMER. (test 87 ML/MIN/1.73 code = 67618) CALC BUN/CREAT (test code = 15 RATIO 2235) SODIUM (test code = 2231) 138 MEQ/L POTASSIUM (test code = 2228) 3.9 MEQ/L CHLORIDE (test code = 2215) 99 MEQ/L CARBON DIOXIDE (test code = 27 MEQ/L 2205) CALCIUM (test code = 2209) 9.9 MG/DL PROTEIN, TOTAL (test code = 7.7 G/DL 222) ALBUMIN (test code = 2201) 4.2 G/DL CALC GLOBULIN (test code = 3.5 G/DL 2240) CALC A/G RATIO (test code = 1.2 RATIO 2234) BILIRUBIN, TOTAL (test code = 0.3 MG/DL 2207) ALKALINE PHOSPHATASE (test 96 U/L code = 2204) AST (test code = 2218) 13 U/L ALT (test code = 2219) 15 U/L COMPREHENSIVE METABOLIC [id number] 00:00:00 Test Item Value Reference Range Interpretation Comments GLUCOSE (test code = 2217) 128 MG/DL BUN (test code = 2208) 12 MG/DL CREATININE (test code = 2214) 0.80 MG/DL eGFR AMER. (test code 101 ML/MIN/1.73 = 18038) eGFR NON- AMER. (test 87 ML/MIN/1.73 code = 58548) CALC BUN/CREAT (test code = 15 RATIO 2235) SODIUM (test code = 2231) 138 MEQ/L POTASSIUM (test code = 2228) 3.9 MEQ/L CHLORIDE (test code = 2215) 99 MEQ/L CARBON DIOXIDE (test code = 27 MEQ/L 2205) CALCIUM (test code = 2209) 9.9 MG/DL PROTEIN, TOTAL (test code = 7.7 G/DL 2228) ALBUMIN (test code = 2201) 4.2 G/DL CALC GLOBULIN (test code = 3.5 G/DL 2240) CALC A/G RATIO (test code = 1.2 RATIO 2234) BILIRUBIN, TOTAL (test code = 0.3 MG/DL 2207) ALKALINE PHOSPHATASE (test 96 U/L code = 2204) AST (test code = 2218) 13 U/L ALT (test code = 2219) 15 U/L SCR MAMM BILATERAL CATHERINE CAD [id number] 16:32:47 Name: Ever : 1970 Sex: F - SCR MAMM BILATERAL CATHERINE CAD DIGITALBILATERAL DIGITAL SCREENING MAMMOGRAM 3D/2D WITH CAD: 04/24/2020LINICAL: Asymptomatic. Digital breasttomosynthesis was performed in addition to routine CC and MLO views. Current mammographic images were evaluated by either a [employer] M-Vu or a [employer] CAD (computer aided detection system). No prior exams were available for comparison. There are scattered fibroglandular tissues in both breasts. There is a benign density in the left breast. No suspicious mass, architectural distortion, malignant type calcification, or lymph node abnormality detected. IMPRESSION: BENIGNThere is no mammographic evidence of malignancy. Resume annual screening mammography in one year. Fabi Arredondo M.D. scduane/penrad:04/27/2020 16:32:47 Cytogenetics Technologist: Keri Putnam MM, [facility] Mammographyletter sent: BIRADS 1-2 Normal Mammogram BI-RADS: 2 BenignGC AND CHLAMYDIA AMPLIFIED, [id number] 00:00:00 Test Item Value Reference Range Interpretation Comments GONORRHEA, TMA (test code = 12242) NEGATIVE CHLAMYDIA, TMA (test code = 81733) NEGATIVE GC AND CHLAMYDIA AMPLIFIED, [id number] 00:00:00 Test Item Value Reference Range Interpretation Comments GONORRHEA, TMA (test code = 80894) NEGATIVE CHLAMYDIA, TMA (test code = 00245) NEGATIVE PAP TEST, THINPREP, [id number] 00:00:00 Test Item Value Reference Range Interpretation Comments SOURCE: (test code = Cervical/Endocervical 8001) SLIDES: (test code = 1 8011) LMP: (test code = 8021) 07/2019 SPECIMEN ADEQUACY: (test (NOTE) code = 40985) INTERPRETATION: (test NILM/NO EPITH. code = 16607) ABNORMALITY;SEE BELOW OTHER COMMENTS: (test (NOTE) code = 8081) DIRECTOR OF RESTAURANT OPERATIONS: (test Fabi Atkinson CT (ASCP) code = 8101) LOCATION: (test code = (NOTE) 37042) CPT: (test code = 8140) (NOTE) PAP TEST, THINPREP, [id number] 00:00:00 Test Item Value Reference Range Interpretation Comments SOURCE: (test code = Cervical/Endocervical 8001) SLIDES: (test code = 1 8011) LMP: (test code = 8021) 07/2019 SPECIMEN ADEQUACY: (test (NOTE) code = 11006) INTERPRETATION: (test NILM/NO EPITH. code = 22858) ABNORMALITY;SEE BELOW OTHER COMMENTS: (test (NOTE) code = 8081) DIRECTOR OF RESTAURANT OPERATIONS: (test Fabi Atkinson CT (ASCP) code = 8101) LOCATION: (test code = (NOTE) 48860) CPT: (test code = 8140) (NOTE) VAGINAL PATHOGENS DNA [id number] 00:00:00 Test Item Value Reference Range Interpretation Comments SUBHASH SPECIES (test code = ) POSITIVE G. VAGINALIS (test code = 74724) POSITIVE T. VAGINALIS (test code = 42992) NEGATIVE HIV AB/AG COMBO RFLX [id number] 00:00:00 Test Item Value Reference Range Interpretation Comments HIV 1/2 4TH GEN, RFLX CONF (test NON-REACTIVE code = 3514) HIV AB/AG COMBO RFLX [id number] 00:00:00 Test Item Value Reference Range Interpretation Comments HIV 1/2 4TH GEN, RFLX CONF (test NON-REACTIVE code = 3514) VAGINAL PATHOGENS DNA [id number] 00:00:00 Test Item Value Reference Range Interpretation Comments SUBHASH SPECIES (test code = 95960) POSITIVE G. VAGINALIS (test code = 62558) POSITIVE T. VAGINALIS (test code = 97987) NEGATIVE ACUTE HEPATITIS [id number] 00:00:00 Test Item Value Reference Range Interpretation Comments HEPATITIS A IgM (test code = NON-REACTIVE 09956) HEPATITIS B CORE IgM (test code NON-REACTIVE = 4644) HEPATITIS B SURF AG (test code = NON-REACTIVE 2369) HEPATITIS C ANTIBODY (test code NON-REACTIVE = 6402) INTERPRETATION HEPATITIS A: (NOTE) (test code = 2552) INTERPRETATION HEPATITIS B: (NOTE) (test code = 51890) INTERPRETATION HEPATITIS C: (NOTE) (test code = 12213) ACUTE HEPATITIS [id number] 00:00:00 Test Item Value Reference Range Interpretation Comments HEPATITIS A IgM (test code = NON-REACTIVE 15745) HEPATITIS B CORE IgM (test code NON-REACTIVE = 4644) HEPATITIS B SURF AG (test code = NON-REACTIVE 5279) HEPATITIS C ANTIBODY (test code NON-REACTIVE = 4675) INTERPRETATION HEPATITIS A: (NOTE) (test code = 2552) INTERPRETATION HEPATITIS B: (NOTE) (test code = 29417) INTERPRETATION HEPATITIS C: (NOTE) (test code = 07626) [id number] 00:00:00 Test Item Value Reference Range Interpretation Comments RPR RESULT (test code = NON-REACTIVE 3501) RPR TITER (test code = 3500) NOT INDIC. TITER HPV HIGH RISK WITH GENOTYPE, [id number] 00:00:00 Test Item Value Reference Range Interpretation Comments HPV HIGH RISK INTERP (test code = NEGATIVE 69595) HPV 16 (test code = 10973) NEGATIVE HPV 18 (test code = 01708) NEGATIVE HPV, HR, OTHER GENOTYPES (test code NEGATIVE = 56035) [id number] 00:00:00 Test Item Value Reference Range Interpretation Comments RPR RESULT (test code = NON-REACTIVE 3501) RPR TITER (test code = 3500) NOT INDIC. TITER [id number] 00:00:00 Test Item Value Reference Range Interpretation Comments RPR RESULT (test code = NON-REACTIVE 3501) RPR TITER (test code = 3500) NOT INDIC. TITER HPV HIGH RISK WITH GENOTYPE, [id number] 00:00:00 Test Item Value Reference Range Interpretation Comments HPV HIGH RISK INTERP (test code = NEGATIVE 39474) HPV 16 (test code = 96895) NEGATIVE HPV 18 (test code = 29508) NEGATIVE HPV, HR, OTHER GENOTYPES (test code NEGATIVE = 20223) LIPID [id number] 00:00:00 Test Item Value Reference Range Interpretation Comments CHOLESTEROL (test code = 2210) 171 MG/DL TRIGLYCERIDES (test code = 2232) 252 MG/DL HDL CHOLESTEROL (test code = 2220) 45 MG/DL CALC LDL CHOL (test code = 2237) 93 MG/DL RISK RATIO LDL/HDL (test code = 2.07 RATIO 2238) LIPID [id number] 00:00:00 Test Item Value Reference Range Interpretation Comments CHOLESTEROL (test code = 2210) 171 MG/DL TRIGLYCERIDES (test code = 2232) 252 MG/DL HDL CHOLESTEROL (test code = 2220) 45 MG/DL CALC LDL CHOL (test code = 2237) 93 MG/DL RISK RATIO LDL/HDL (test code = 2.07 RATIO 2238) COMPREHENSIVE METABOLIC [id number] 00:00:00 Test Item Value Reference Range Interpretation Comments GLUCOSE (test code = 2217) 332 MG/DL BUN (test code = 2208) 13 MG/DL CREATININE (test code = 2214) 0.86 MG/DL eGFR AMER. (test code 93 ML/MIN/1.73 = 23161) eGFR NON- AMER. (test 80 ML/MIN/1.73 code = 14129) CALC BUN/CREAT (test code = 15 RATIO 2235) SODIUM (test code = 2231) 137 MEQ/L POTASSIUM (test code = 2228) 3.8 MEQ/L CHLORIDE (test code = 2215) 97 MEQ/L CARBON DIOXIDE (test code = 23 MEQ/L 2206) CALCIUM (test code = 2209) 10.3 MG/DL PROTEIN, TOTAL (test code = 7.4 G/DL 2228) ALBUMIN (test code = 2201) 4.1 G/DL CALC GLOBULIN (test code = 3.3 G/DL 2240) CALC A/G RATIO (test code = 1.2 RATIO 2234) BILIRUBIN, TOTAL (test code = <0.2 MG/DL 2206) ALKALINE PHOSPHATASE (test 118 U/L code = 2204) AST (test code = 2218) 15 U/L ALT (test code = 2219) 21 U/L COMPREHENSIVE METABOLIC [id number] 00:00:00 Test Item Value Reference Range Interpretation Comments GLUCOSE (test code = 2217) 332 MG/DL BUN (test code = 2208) 13 MG/DL CREATININE (test code = 2214) 0.86 MG/DL eGFR AMER. (test code 93 ML/MIN/1.73 = 50167) eGFR NON- AMER. (test 80 ML/MIN/1.73 code = 73069) CALC BUN/CREAT (test code = 15 RATIO 5) SODIUM (test code = 2231) 137 MEQ/L POTASSIUM (test code = 2228) 3.8 MEQ/L CHLORIDE (test code = 2215) 97 MEQ/L CARBON DIOXIDE (test code = 23 MEQ/L 2205) CALCIUM (test code = 2209) 10.3 MG/DL PROTEIN, TOTAL (test code = 7.4 G/DL 2228) ALBUMIN (test code = 2201) 4.1 G/DL CALC GLOBULIN (test code = 3.3 G/DL 2239) CALC A/G RATIO (test code = 1.2 RATIO 2233) BILIRUBIN, TOTAL (test code = <0.2 MG/DL 2206) ALKALINE PHOSPHATASE (test 118 U/L code = 2204) AST (test code = 2218) 15 U/L ALT (test code = 2219) 21 U/L HEMOGLOBIN [id number] 00:00:00 Test Item Value Reference Range Interpretation Comments HEMOGLOBIN A1c (test code = 43162) 12.5 % HEMOGLOBIN [id number] 00:00:00 Test Item Value Reference Range Interpretation Comments HEMOGLOBIN A1c (test code = 19281) 12.5 % HEMOGLOBIN [id number] 00:00:00 Test Item Value Reference Range Interpretation Comments HEMOGLOBIN A1c (test code = 07252) 12.5 % SARS-CoV-2 (COVID-19) by RT-PCR (HIGH RISK)2019-10-25 00:00:00 Test Item Value Reference Range Interpretation Comments SARS-CoV-2 INTERPRETATION (test NEGATIVE code = 63928) SOURCE (test code = 72571) NOT SPECIFIED SARS-CoV-2 (COVID-19) by RT-PCR (HIGH RISK)2019-10-25 00:00:00 Test Item Value Reference Range Interpretation Comments SARS-CoV-2 INTERPRETATION (test NEGATIVE code = 31642) SOURCE (test code = 00018) NOT SPECIFIED SARS-CoV-2 (COVID-19) by RT-PCR (HIGH RISK)2019-10-06 00:00:00 Test Item Value Reference Range Interpretation Comments SARS-CoV-2 INTERPRETATION (test POSITIVE code = 16235) SOURCE (test code = 69290) NOT SPECIFIED SARS-CoV-2 (COVID-19) by RT-PCR (HIGH RISK)2019-10-06 00:00:00 Test Item Value Reference Range Interpretation Comments SARS-CoV-2 INTERPRETATION (test POSITIVE code = 65071) SOURCE (test code = 74791) NOT SPECIFIED HEMOGLOBIN [id number] 00:00:00 Test Item Value Reference Range Interpretation Comments HEMOGLOBIN A1c (test code = 89876) 12.3 % HEMOGLOBIN [id number] 00:00:00 Test Item Value Reference Range Interpretation Comments HEMOGLOBIN A1c (test code = 49829) 12.3 % HEMOGLOBIN [id number] 00:00:00 Test Item Value Reference Range Interpretation Comments HEMOGLOBIN A1c (test code = 82387) 12.3 % MICROALBUMIN/CREATININE, RANDOM AND [id number] 00:00:00 Test Item Value Reference Range Interpretation Comments CREATININE, URINE, CONC. (test 72.1 MG/DL code = 2072) ALBUMIN, URINE, RANDOM (test code <0.2 MG/DL = 47828) CALC ALBUMIN/CREAT, RND (test code <3 MG/G = 29247) MICROALBUMIN/CREATININE, RANDOM AND [id number] 00:00:00 Test Item Value Reference Range Interpretation Comments CREATININE, URINE, CONC. (test 72.1 MG/DL code = 2072) ALBUMIN, URINE, RANDOM (test code <0.2 MG/DL = 42418) CALC ALBUMIN/CREAT, RND (test code <3 MG/G = 23728) HEMOGLOBIN [id number] 00:00:00 Test Item Value Reference Range Interpretation Comments HEMOGLOBIN A1c (test code = 11459) 9.3 % HEMOGLOBIN [id number] 00:00:00 Test Item Value Reference Range Interpretation Comments HEMOGLOBIN A1c (test code = 61299) 9.3 % HEMOGLOBIN [id number] 00:00:00 Test Item Value Reference Range Interpretation Comments HEMOGLOBIN A1c (test code = 34550) 9.3 % LIPID [id number] 00:00:00 Test Item Value Reference Range Interpretation Comments CHOLESTEROL (test code = 2210) 159 MG/DL TRIGLYCERIDES (test code = 2232) 186 MG/DL HDL CHOLESTEROL (test code = 2220) 51 MG/DL CALC LDL CHOL (test code = 2237) 71 MG/DL RISK RATIO LDL/HDL (test code = 1.39 RATIO 2238) LIPID [id number] 00:00:00 Test Item Value Reference Range Interpretation Comments CHOLESTEROL (test code = 2210) 159 MG/DL TRIGLYCERIDES (test code = 2232) 186 MG/DL HDL CHOLESTEROL (test code = 2220) 51 MG/DL CALC LDL CHOL (test code = 2237) 71 MG/DL RISK RATIO LDL/HDL (test code = 1.39 RATIO 2238) COMPREHENSIVE METABOLIC [id number] 00:00:00 Test Item Value Reference Range Interpretation Comments GLUCOSE (test code = 2217) 189 MG/DL BUN (test code = 2208) 12 MG/DL CREATININE (test code = 2214) 0.79 MG/DL eGFR AMER. (test code 104 ML/MIN/1.73 = 77736) eGFR NON- AMER. (test 90 ML/MIN/1.73 code = 00494) CALC BUN/CREAT (test code = 15 RATIO 2235) SODIUM (test code = 2231) 138 MEQ/L POTASSIUM (test code = 2228) 3.9 MEQ/L CHLORIDE (test code = 2215) 96 MEQ/L CARBON DIOXIDE (test code = 26 MEQ/L 2206) CALCIUM (test code = 2209) 9.5 MG/DL PROTEIN, TOTAL (test code = 7.0 G/DL 2229) ALBUMIN (test code = 2201) 3.9 G/DL CALC GLOBULIN (test code = 3.1 G/DL 2240) CALC A/G RATIO (test code = 1.3 RATIO 2234) BILIRUBIN, TOTAL (test code = 0.3 MG/DL 2207) ALKALINE PHOSPHATASE (test 91 U/L code = 2204) AST (test code = 2218) 12 U/L ALT (test code = 2219) 16 U/L COMPREHENSIVE METABOLIC [id number] 00:00:00 Test Item Value Reference Range Interpretation Comments GLUCOSE (test code = 2217) 189 MG/DL BUN (test code = 2208) 12 MG/DL CREATININE (test code = 2214) 0.79 MG/DL eGFR AMER. (test code 104 ML/MIN/1.73 = 25457) eGFR NON- AMER. (test 90 ML/MIN/1.73 code = 44390) CALC BUN/CREAT (test code = 15 RATIO 2235) SODIUM (test code = 2231) 138 MEQ/L POTASSIUM (test code = 2228) 3.9 MEQ/L CHLORIDE (test code = 2215) 96 MEQ/L CARBON DIOXIDE (test code = 26 MEQ/L 2205) CALCIUM (test code = 2209) 9.5 MG/DL PROTEIN, TOTAL (test code = 7.0 G/DL 2228) ALBUMIN (test code = 2201) 3.9 G/DL CALC GLOBULIN (test code = 3.1 G/DL 2239) CALC A/G RATIO (test code = 1.3 RATIO 2233) BILIRUBIN, TOTAL (test code = 0.3 MG/DL 2206) ALKALINE PHOSPHATASE (test 91 U/L code = 2204) AST (test code = 2218) 12 U/L ALT (test code = 2219) 16 U/L GC AND CHLAMYDIA, AMPLIFIED, [id number] 00:00:00 Test Item Value Reference Range Interpretation Comments GONORRHEA, TMA (test code = 41566) NEGATIVE CHLAMYDIA, TMA (test code = 01450) NEGATIVE GC AND CHLAMYDIA, AMPLIFIED, [id number] 00:00:00 Test Item Value Reference Range Interpretation Comments GONORRHEA, TMA (test code = 84745) NEGATIVE CHLAMYDIA, TMA (test code = 67974) NEGATIVE HEMOGLOBIN [id number] 00:00:00 Test Item Value Reference Range Interpretation Comments HEMOGLOBIN A1c (test code = 88027) 9.6 % HEMOGLOBIN [id number] 00:00:00 Test Item Value Reference Range Interpretation Comments HEMOGLOBIN A1c (test code = 15229) 9.6 % HEMOGLOBIN [id number] 00:00:00 Test Item Value Reference Range Interpretation Comments HEMOGLOBIN A1c (test code = 14420) 9.6 % CBC W/AUTO [id number] 00:00:00 Test Item Value Reference Range Interpretation Comments WBC (test code = 1001) 6.9 K/UL RBC (test code = 1002) 5.26 M/UL HEMOGLOBIN (test code = 1003) 12.1 G/DL HEMATOCRIT (test code = 1004) 37.2 % MCV (test code = 1005) 70.7 fL MCH (test code = 1006) 23.0 PG MCHC (test code = 1007) 32.5 G/DL RDW (test code = 1038) 15.3 % NEUTROPHILS (test code = 1008) 48.1 % LYMPHOCYTES (test code = 1010) 39.4 % MONOCYTES (test code = 1011) 8.2 % EOSINOPHILS (test code = 1012) 3.6 % BASOPHILS (test code = 1013) 0.7 % PLATELET COUNT (test code = 1015) 443 K/UL CBC W/AUTO [id number] 00:00:00 Test Item Value Reference Range Interpretation Comments WBC (test code = 1001) 6.9 K/UL RBC (test code = 1002) 5.26 M/UL HEMOGLOBIN (test code = 1003) 12.1 G/DL HEMATOCRIT (test code = 1004) 37.2 % MCV (test code = 1005) 70.7 fL MCH (test code = 1006) 23.0 PG MCHC (test code = 1007) 32.5 G/DL RDW (test code = 1038) 15.3 % NEUTROPHILS (test code = 1008) 48.1 % LYMPHOCYTES (test code = 1010) 39.4 % MONOCYTES (test code = 1011) 8.2 % EOSINOPHILS (test code = 1012) 3.6 % BASOPHILS (test code = 1013) 0.7 % PLATELET COUNT (test code = 1015) 443 K/UL CBC W/AUTO [id number] 00:00:00 Test Item Value Reference Range Interpretation Comments WBC (test code = 1001) 6.9 K/UL RBC (test code = 1002) 5.26 M/UL HEMOGLOBIN (test code = 1003) 12.1 G/DL HEMATOCRIT (test code = 1004) 37.2 % MCV (test code = 1005) 70.7 fL MCH (test code = 1006) 23.0 PG MCHC (test code = 1007) 32.5 G/DL RDW (test code = 1038) 15.3 % NEUTROPHILS (test code = 1008) 48.1 % LYMPHOCYTES (test code = 1010) 39.4 % MONOCYTES (test code = 1011) 8.2 % EOSINOPHILS (test code = 1012) 3.6 % BASOPHILS (test code = 1013) 0.7 % PLATELET COUNT (test code = 1015) 443 K/UL COMPREHENSIVE METABOLIC [id number] 00:00:00 Test Item Value Reference Range Interpretation Comments GLUCOSE (test code = 2217) 226 MG/DL BUN (test code = 2208) 17 MG/DL CREATININE (test code = 2214) 0.74 MG/DL eGFR AMER. (test code 113 ML/MIN/1.73 = 84624) eGFR NON- AMER. (test 98 ML/MIN/1.73 code = 66485) CALC BUN/CREAT (test code = 23 RATIO 2235) SODIUM (test code = 2231) 139 MEQ/L POTASSIUM (test code = 2228) 4.2 MEQ/L CHLORIDE (test code = 2215) 95 MEQ/L CARBON DIOXIDE (test code = 29 MEQ/L 220) CALCIUM (test code = 2209) 10.0 MG/DL PROTEIN, TOTAL (test code = 7.4 G/DL 2228) ALBUMIN (test code = 2201) 4.2 G/DL CALC GLOBULIN (test code = 3.2 G/DL 2240) CALC A/G RATIO (test code = 1.3 RATIO 2234) BILIRUBIN, TOTAL (test code = 0.2 MG/DL 2206) ALKALINE PHOSPHATASE (test 104 U/L code = 2204) AST (test code = 2218) 14 U/L ALT (test code = 2219) 14 U/L COMPREHENSIVE METABOLIC [id number] 00:00:00 Test Item Value Reference Range Interpretation Comments GLUCOSE (test code = 2217) 226 MG/DL BUN (test code = 2208) 17 MG/DL CREATININE (test code = 2214) 0.74 MG/DL eGFR AMER. (test code 113 ML/MIN/1.73 = 86725) eGFR NON- AMER. (test 98 ML/MIN/1.73 code = 95716) CALC BUN/CREAT (test code = 23 RATIO 2235) SODIUM (test code = 2231) 139 MEQ/L POTASSIUM (test code = 2228) 4.2 MEQ/L CHLORIDE (test code = 2215) 95 MEQ/L CARBON DIOXIDE (test code = 29 MEQ/L 220) CALCIUM (test code = 2209) 10.0 MG/DL PROTEIN, TOTAL (test code = 7.4 G/DL 2228) ALBUMIN (test code = 2201) 4.2 G/DL CALC GLOBULIN (test code = 3.2 G/DL 2240) CALC A/G RATIO (test code = 1.3 RATIO 2234) BILIRUBIN, TOTAL (test code = 0.2 MG/DL 7) ALKALINE PHOSPHATASE (test 104 U/L code = 2204) AST (test code = 2218) 14 U/L ALT (test code = 2219) 14 U/L LIPID [id number] 00:00:00 Test Item Value Reference Range Interpretation Comments CHOLESTEROL (test code = 2210) 174 MG/DL TRIGLYCERIDES (test code = 2232) 279 MG/DL HDL CHOLESTEROL (test code = 2220) 45 MG/DL CALC LDL CHOL (test code = 2237) 73 MG/DL RISK RATIO LDL/HDL (test code = 1.63 RATIO 2238) LIPID [id number] 00:00:00 Test Item Value Reference Range Interpretation Comments CHOLESTEROL (test code = 2210) 174 MG/DL TRIGLYCERIDES (test code = 2232) 279 MG/DL HDL CHOLESTEROL (test code = 2220) 45 MG/DL CALC LDL CHOL (test code = 2237) 73 MG/DL RISK RATIO LDL/HDL (test code = 1.63 RATIO 2238) HEMOGLOBIN [id number] 00:00:00 Test Item Value Reference Range Interpretation Comments HEMOGLOBIN A1c (test code = 26538) 10.2 % HEMOGLOBIN [id number] 00:00:00 Test Item Value Reference Range Interpretation Comments HEMOGLOBIN A1c (test code = 75035) 10.2 % HEMOGLOBIN [id number] 00:00:00 Test Item Value Reference Range Interpretation Comments HEMOGLOBIN A1c (test code = 89813) 10.2 % MICROALBUMIN/CREATININE, RANDOM AND [id number] 00:00:00 Test Item Value Reference Range Interpretation Comments CREATININE, URINE, CONC. (test 253.9 MG/DL code = 2072) ALBUMIN, URINE, RANDOM (test code 1.3 MG/DL = 60261) CALC ALBUMIN/CREAT, RND (test 5 MG/G code = 06088) MICROALBUMIN/CREATININE, RANDOM AND [id number] 00:00:00 Test Item Value Reference Range Interpretation Comments CREATININE, URINE, CONC. (test 253.9 MG/DL code = 2072) ALBUMIN, URINE, RANDOM (test code 1.3 MG/DL = 91409) CALC ALBUMIN/CREAT, RND (test 5 MG/G code = 28394) CBC W/AUTO [id number] 00:00:00 Test Item Value Reference Range Interpretation Comments WBC (test code = 1001) 7.7 K/UL RBC (test code = 1002) 4.79 M/UL HEMOGLOBIN (test code = 1003) 11.0 G/DL HEMATOCRIT (test code = 1004) 34.7 % MCV (test code = 1005) 72.4 fL MCH (test code = 1006) 23.0 PG MCHC (test code = 1007) 31.7 G/DL RDW (test code = 1038) 15.7 % NEUTROPHILS (test code = 1008) 60.3 % LYMPHOCYTES (test code = 1010) 28.9 % MONOCYTES (test code = 1011) 7.6 % EOSINOPHILS (test code = 1012) 2.7 % BASOPHILS (test code = 1013) 0.5 % PLATELET COUNT (test code = 1015) 450 K/UL CBC W/AUTO [id number] 00:00:00 Test Item Value Reference Range Interpretation Comments WBC (test code = 1001) 7.7 K/UL RBC (test code = 1002) 4.79 M/UL HEMOGLOBIN (test code = 1003) 11.0 G/DL HEMATOCRIT (test code = 1004) 34.7 % MCV (test code = 1005) 72.4 fL MCH (test code = 1006) 23.0 PG MCHC (test code = 1007) 31.7 G/DL RDW (test code = 1038) 15.7 % NEUTROPHILS (test code = 1008) 60.3 % LYMPHOCYTES (test code = 1010) 28.9 % MONOCYTES (test code = 1011) 7.6 % EOSINOPHILS (test code = 1012) 2.7 % BASOPHILS (test code = 1013) 0.5 % PLATELET COUNT (test code = 1015) 450 K/UL CBC W/AUTO [id number] 00:00:00 Test Item Value Reference Range Interpretation Comments WBC (test code = 1001) 7.7 K/UL RBC (test code = 1002) 4.79 M/UL HEMOGLOBIN (test code = 1003) 11.0 G/DL HEMATOCRIT (test code = 1004) 34.7 % MCV (test code = 1005) 72.4 fL MCH (test code = 1006) 23.0 PG MCHC (test code = 1007) 31.7 G/DL RDW (test code = 1038) 15.7 % NEUTROPHILS (test code = 1008) 60.3 % LYMPHOCYTES (test code = 1010) 28.9 % MONOCYTES (test code = 1011) 7.6 % EOSINOPHILS (test code = 1012) 2.7 % BASOPHILS (test code = 1013) 0.5 % PLATELET COUNT (test code = 1015) 450 K/UL HEMOGLOBIN [id number] 00:00:00 Test Item Value Reference Range Interpretation Comments HEMOGLOBIN A1c (test code = 67238) 7.9 % HEMOGLOBIN [id number] 00:00:00 Test Item Value Reference Range Interpretation Comments HEMOGLOBIN A1c (test code = 34645) 7.9 % HEMOGLOBIN [id number] 00:00:00 Test Item Value Reference Range Interpretation Comments HEMOGLOBIN A1c (test code = 97052) 7.9 % COMPREHENSIVE METABOLIC [id number] 00:00:00 Test Item Value Reference Range Interpretation Comments GLUCOSE (test code = 2217) 130 MG/DL BUN (test code = 2208) 12 MG/DL CREATININE (test code = 2214) 0.91 MG/DL eGFR AMER. (test code 89 ML/MIN/1.73 = 92566) eGFR NON- AMER. (test 77 ML/MIN/1.73 code = 80027) CALC BUN/CREAT (test code = 13 RATIO 2235) SODIUM (test code = 2231) 139 MEQ/L POTASSIUM (test code = 2228) 3.8 MEQ/L CHLORIDE (test code = 2215) 97 MEQ/L CARBON DIOXIDE (test code = 26 MEQ/L 2205) CALCIUM (test code = 2209) 9.1 MG/DL PROTEIN, TOTAL (test code = 7.0 G/DL 2228) ALBUMIN (test code = 2201) 4.0 G/DL CALC GLOBULIN (test code = 3.0 G/DL 2240) CALC A/G RATIO (test code = 1.3 RATIO 2234) BILIRUBIN, TOTAL (test code = 0.1 MG/DL 2206) ALKALINE PHOSPHATASE (test 77 U/L code = 2204) AST (test code = 2218) 15 U/L ALT (test code = 2219) 14 U/L COMPREHENSIVE METABOLIC [id number] 00:00:00 Test Item Value Reference Range Interpretation Comments GLUCOSE (test code = 2217) 130 MG/DL BUN (test code = 2208) 12 MG/DL CREATININE (test code = 2214) 0.91 MG/DL eGFR AMER. (test code 89 ML/MIN/1.73 = 15959) eGFR NON- AMER. (test 77 ML/MIN/1.73 code = 62974) CALC BUN/CREAT (test code = 13 RATIO 2235) SODIUM (test code = 2231) 139 MEQ/L POTASSIUM (test code = 2228) 3.8 MEQ/L CHLORIDE (test code = 2215) 97 MEQ/L CARBON DIOXIDE (test code = 26 MEQ/L 2205) CALCIUM (test code = 2209) 9.1 MG/DL PROTEIN, TOTAL (test code = 7.0 G/DL 2228) ALBUMIN (test code = 2201) 4.0 G/DL CALC GLOBULIN (test code = 3.0 G/DL 2239) CALC A/G RATIO (test code = 1.3 RATIO 2233) BILIRUBIN, TOTAL (test code = 0.1 MG/DL 2206) ALKALINE PHOSPHATASE (test 77 U/L code = 2204) AST (test code = 2218) 15 U/L ALT (test code = 2219) 14 U/L LIPID [id number] 00:00:00 Test Item Value Reference Range Interpretation Comments CHOLESTEROL (test code = 2210) 169 MG/DL TRIGLYCERIDES (test code = 2232) 354 MG/DL HDL CHOLESTEROL (test code = 2220) 45 MG/DL CALC LDL CHOL (test code = 2237) 53 MG/DL RISK RATIO LDL/HDL (test code = 1.18 RATIO 2238) LIPID [id number] 00:00:00 Test Item Value Reference Range Interpretation Comments CHOLESTEROL (test code = 2210) 169 MG/DL TRIGLYCERIDES (test code = 2232) 354 MG/DL HDL CHOLESTEROL (test code = 2220) 45 MG/DL CALC LDL CHOL (test code = 2237) 53 MG/DL RISK RATIO LDL/HDL (test code = 1.18 RATIO 2238) CBC W/AUTO [id number] 00:00:00 Test Item Value Reference Range Interpretation Comments WBC (test code = 1001) 6.4 K/UL RBC (test code = 1002) 4.79 M/UL HEMOGLOBIN (test code = 1003) 11.3 G/DL HEMATOCRIT (test code = 1004) 34.8 % MCV (test code = 1005) 72.7 fL MCH (test code = 1006) 23.6 PG MCHC (test code = 1007) 32.5 G/DL RDW (test code = 1038) 15.1 % NEUTROPHILS (test code = 1008) 52.0 % LYMPHOCYTES (test code = 1010) 37.5 % MONOCYTES (test code = 1011) 6.9 % EOSINOPHILS (test code = 1012) 2.7 % BASOPHILS (test code = 1013) 0.9 % PLATELET COUNT (test code = 1015) 465 K/UL CBC W/AUTO [id number] 00:00:00 Test Item Value Reference Range Interpretation Comments WBC (test code = 1001) 6.4 K/UL RBC (test code = 1002) 4.79 M/UL HEMOGLOBIN (test code = 1003) 11.3 G/DL HEMATOCRIT (test code = 1004) 34.8 % MCV (test code = 1005) 72.7 fL MCH (test code = 1006) 23.6 PG MCHC (test code = 1007) 32.5 G/DL RDW (test code = 1038) 15.1 % NEUTROPHILS (test code = 1008) 52.0 % LYMPHOCYTES (test code = 1010) 37.5 % MONOCYTES (test code = 1011) 6.9 % EOSINOPHILS (test code = 1012) 2.7 % BASOPHILS (test code = 1013) 0.9 % PLATELET COUNT (test code = 1015) 465 K/UL CBC W/AUTO [id number] 00:00:00 Test Item Value Reference Range Interpretation Comments WBC (test code = 1001) 6.4 K/UL RBC (test code = 1002) 4.79 M/UL HEMOGLOBIN (test code = 1003) 11.3 G/DL HEMATOCRIT (test code = 1004) 34.8 % MCV (test code = 1005) 72.7 fL MCH (test code = 1006) 23.6 PG MCHC (test code = 1007) 32.5 G/DL RDW (test code = 1038) 15.1 % NEUTROPHILS (test code = 1008) 52.0 % LYMPHOCYTES (test code = 1010) 37.5 % MONOCYTES (test code = 1011) 6.9 % EOSINOPHILS (test code = 1012) 2.7 % BASOPHILS (test code = 1013) 0.9 % PLATELET COUNT (test code = 1015) 465 K/UL HEMOGLOBIN [id number] 00:00:00 Test Item Value Reference Range Interpretation Comments HEMOGLOBIN A1c (test code = 32431) 6.8 % HEMOGLOBIN [id number] 00:00:00 Test Item Value Reference Range Interpretation Comments HEMOGLOBIN A1c (test code = 10785) 6.8 % HEMOGLOBIN [id number] 00:00:00 Test Item Value Reference Range Interpretation Comments HEMOGLOBIN A1c (test code = 65617) 6.8 % [id number] 00:00:00 Test Item Value Reference Range Interpretation Comments TSH (test code = 2821) 1.180 UIU/ML [id number] 00:00:00 Test Item Value Reference Range Interpretation Comments TSH (test code = 2821) 1.180 UIU/ML [id number] 00:00:00 Test Item Value Reference Range Interpretation Comments TSH (test code = 2821) 1.180 UIU/ML LIPID [id number] 00:00:00 Test Item Value Reference Range Interpretation Comments CHOLESTEROL (test code = 2210) 168 MG/DL TRIGLYCERIDES (test code = 2232) 165 MG/DL HDL CHOLESTEROL (test code = 2220) 50 MG/DL CALC LDL CHOL (test code = 2237) 85 MG/DL RISK RATIO LDL/HDL (test code = 1.70 RATIO 2238) LIPID [id number] 00:00:00 Test Item Value Reference Range Interpretation Comments CHOLESTEROL (test code = 2210) 168 MG/DL TRIGLYCERIDES (test code = 2232) 165 MG/DL HDL CHOLESTEROL (test code = 2220) 50 MG/DL CALC LDL CHOL (test code = 2237) 85 MG/DL RISK RATIO LDL/HDL (test code = 1.70 RATIO 2238) HEMOGLOBIN A1c [ADDED]2016-07-27 00:00:00 Test Item Value Reference Range Interpretation Comments HEMOGLOBIN A1c (test code = 56004) 6.8 % HEMOGLOBIN A1c [ADDED]2016-07-27 00:00:00 Test Item Value Reference Range Interpretation Comments HEMOGLOBIN A1c (test code = 53003) 6.8 % HEMOGLOBIN A1c [ADDED]2016-07-27 00:00:00 Test Item Value Reference Range Interpretation Comments HEMOGLOBIN A1c (test code = 24143) 6.8 % PAP TEST, THINPREP, [id number] 00:00:00 Test Item Value Reference Range Interpretation Comments SOURCE: (test code = Cervical/Endocervical 8001) SLIDES: (test code = 1 8011) LMP: (test code = 03/04/2016 8021) SPECIMEN ADEQUACY: (NOTE) (test code = 25856) INTERPRETATION: (test NO EPITHELIAL code = 55555) ABNORMALITY SEE BELOW DIRECTOR OF [employer] OPERATIONS: Brittany (test code = 8101) Gregoryssad,CT(ASCP)IAC LOCATION: (test code (NOTE) = 59832) CPT: (test code = (NOTE) 8140) PAP TEST, THINPREP, [id number] 00:00:00 Test Item Value Reference Range Interpretation Comments SOURCE: (test code = Cervical/Endocervical 8001) SLIDES: (test code = 1 8011) LMP: (test code = 03/04/2016 8021) SPECIMEN ADEQUACY: (NOTE) (test code = 45670) INTERPRETATION: (test NO EPITHELIAL code = 92692) ABNORMALITY SEE BELOW DIRECTOR OF [employer] OPERATIONS: Brittany (test code = 8101) Gregoryssbassam,CT(ASCP)IAC LOCATION: (test code (NOTE) = 70930) CPT: (test code = (NOTE) 8140) HPV HIGH RISK WITH GENOTYPE, [id number] 00:00:00 Test Item Value Reference Range Interpretation Comments HPV HIGH RISK INTERP (test code = NEGATIVE 98577) HPV 16 (test code = 35430) NEGATIVE HPV 18 (test code = 04396) NEGATIVE HPV, HR, OTHER GENOTYPES (test code NEGATIVE = 88524) HPV HIGH RISK WITH GENOTYPE, [id number] 00:00:00 Test Item Value Reference Range Interpretation Comments HPV HIGH RISK INTERP (test code = NEGATIVE 06057) HPV 16 (test code = 22869) NEGATIVE HPV 18 (test code = 87423) NEGATIVE HPV, HR, OTHER GENOTYPES (test code NEGATIVE = 17468) COMPREHENSIVE METABOLIC [id number] 00:00:00 Test Item Value Reference Range Interpretation Comments GLUCOSE (test code = 2217) 104 MG/DL BUN (test code = 2208) 11 MG/DL CREATININE (test code = 2214) 0.72 MG/DL eGFR AMER. (test code 119 ML/MIN/1.73 = 94038) eGFR NON- AMER. (test 103 ML/MIN/1.73 code = 93964) CALC BUN/CREAT (test code = 15 RATIO 2235) SODIUM (test code = 2231) 140 MEQ/L POTASSIUM (test code = 2228) 4.2 MEQ/L CHLORIDE (test code = 2215) 97 MEQ/L CARBON DIOXIDE (test code = 18 MEQ/L 2205) CALCIUM (test code = 2209) 8.7 MG/DL PROTEIN, TOTAL (test code = 6.8 G/DL 2228) ALBUMIN (test code = 2201) 3.7 G/DL CALC GLOBULIN (test code = 3.1 G/DL 2240) CALC A/G RATIO (test code = 1.2 RATIO 2234) BILIRUBIN, TOTAL (test code = 0.3 MG/DL 2206) ALKALINE PHOSPHATASE (test 81 U/L code = 2204) AST (test code = 2218) 17 U/L ALT (test code = 2219) 15 U/L COMPREHENSIVE METABOLIC [id number] 00:00:00 Test Item Value Reference Range Interpretation Comments GLUCOSE (test code = 2217) 104 MG/DL BUN (test code = 2208) 11 MG/DL CREATININE (test code = 2214) 0.72 MG/DL eGFR AMER. (test code 119 ML/MIN/1.73 = 42483) eGFR NON- AMER. (test 103 ML/MIN/1.73 code = 29530) CALC BUN/CREAT (test code = 15 RATIO 2235) SODIUM (test code = 2231) 140 MEQ/L POTASSIUM (test code = 2228) 4.2 MEQ/L CHLORIDE (test code = 2215) 97 MEQ/L CARBON DIOXIDE (test code = 18 MEQ/L 2205) CALCIUM (test code = 2209) 8.7 MG/DL PROTEIN, TOTAL (test code = 6.8 G/DL 2228) ALBUMIN (test code = 2201) 3.7 G/DL CALC GLOBULIN (test code = 3.1 G/DL 2240) CALC A/G RATIO (test code = 1.2 RATIO 2234) BILIRUBIN, TOTAL (test code = 0.3 MG/DL 2206) ALKALINE PHOSPHATASE (test 81 U/L code = 2204) AST (test code = 2218) 17 U/L ALT (test code = 2219) 15 U/L LIPID [id number] 00:00:00 Test Item Value Reference Range Interpretation Comments CHOLESTEROL (test code = 2210) 160 MG/DL TRIGLYCERIDES (test code = 2232) 120 MG/DL HDL CHOLESTEROL (test code = 2220) 59 MG/DL CALC LDL CHOL (test code = 2237) 77 MG/DL RISK RATIO LDL/HDL (test code = 1.31 RATIO 2238) LIPID [id number] 00:00:00 Test Item Value Reference Range Interpretation Comments CHOLESTEROL (test code = 2210) 160 MG/DL TRIGLYCERIDES (test code = 2232) 120 MG/DL HDL CHOLESTEROL (test code = 2220) 59 MG/DL CALC LDL CHOL (test code = 2237) 77 MG/DL RISK RATIO LDL/HDL (test code = 1.31 RATIO 2238) THYROID II PROFILE (T3U, T4, T7, TSH)2016-03-14 00:00:00 Test Item Value Reference Range Interpretation Comments T3 UPTAKE (test code = 2817) 28.1 % T4 (THYROXINE) (test code = 2819) 10.3 UG/DL CALCULATED T7 (FTI) (test code = 2.89 2820) TSH (test code = 2821) 1.1 UIU/ML THYROID II PROFILE (T3U, T4, T7, TSH)2016-03-14 00:00:00 Test Item Value Reference Range Interpretation Comments T3 UPTAKE (test code = 2817) 28.1 % T4 (THYROXINE) (test code = 2819) 10.3 UG/DL CALCULATED T7 (FTI) (test code = 2.89 2820) TSH (test code = 2821) 1.1 UIU/ML CBC W/AUTO [id number] 00:00:00 Test Item Value Reference Range Interpretation Comments WBC (test code = 1001) 6.0 K/UL RBC (test code = 1002) 4.51 M/UL HEMOGLOBIN (test code = 1003) 10.2 G/DL HEMATOCRIT (test code = 1004) 32.7 % MCV (test code = 1005) 72.5 fL MCH (test code = 1006) 22.6 PG MCHC (test code = 1007) 31.2 G/DL RDW (test code = 1038) 14.6 % NEUTROPHILS (test code = 1008) 60.0 % LYMPHOCYTES (test code = 1010) 30.3 % MONOCYTES (test code = 1011) 7.9 % EOSINOPHILS (test code = 1012) 1.3 % BASOPHILS (test code = 1013) 0.5 % PLATELET COUNT (test code = 1015) 336 K/UL CBC W/AUTO [id number] 00:00:00 Test Item Value Reference Range Interpretation Comments WBC (test code = 1001) 6.0 K/UL RBC (test code = 1002) 4.51 M/UL HEMOGLOBIN (test code = 1003) 10.2 G/DL HEMATOCRIT (test code = 1004) 32.7 % MCV (test code = 1005) 72.5 fL MCH (test code = 1006) 22.6 PG MCHC (test code = 1007) 31.2 G/DL RDW (test code = 1038) 14.6 % NEUTROPHILS (test code = 1008) 60.0 % LYMPHOCYTES (test code = 1010) 30.3 % MONOCYTES (test code = 1011) 7.9 % EOSINOPHILS (test code = 1012) 1.3 % BASOPHILS (test code = 1013) 0.5 % PLATELET COUNT (test code = 1015) 336 K/UL CBC W/AUTO [id number] 00:00:00 Test Item Value Reference Range Interpretation Comments WBC (test code = 1001) 6.0 K/UL RBC (test code = 1002) 4.51 M/UL HEMOGLOBIN (test code = 1003) 10.2 G/DL HEMATOCRIT (test code = 1004) 32.7 % MCV (test code = 1005) 72.5 fL MCH (test code = 1006) 22.6 PG MCHC (test code = 1007) 31.2 G/DL RDW (test code = 1038) 14.6 % NEUTROPHILS (test code = 1008) 60.0 % LYMPHOCYTES (test code = 1010) 30.3 % MONOCYTES (test code = 1011) 7.9 % EOSINOPHILS (test code = 1012) 1.3 % BASOPHILS (test code = 1013) 0.5 % PLATELET COUNT (test code = 1015) 336 K/UL HEMOGLOBIN [id number] 00:00:00 Test Item Value Reference Range Interpretation Comments HEMOGLOBIN A1c (test code = 10061) 8.3 % HEMOGLOBIN [id number] 00:00:00 Test Item Value Reference Range Interpretation Comments HEMOGLOBIN A1c (test code = 56608) 8.3 % HEMOGLOBIN [id number] 00:00:00 Test Item Value Reference Range Interpretation Comments HEMOGLOBIN A1c (test code = 77897) 8.3 % COMPREHENSIVE METABOLIC [id number] 00:00:00 Test Item Value Reference Range Interpretation Comments GLUCOSE (test code = 2217) 324 MG/DL BUN (test code = 2208) 13 MG/DL CREATININE (test code = 2214) 0.76 MG/DL eGFR AMER. (test code 112 ML/MIN/1.73 = 78775) eGFR NON- AMER. (test 97 ML/MIN/1.73 code = 90021) CALCULATED BUN/CREAT (test 17 RATIO code = 2235) SODIUM (test code = 2231) 132 MEQ/L POTASSIUM (test code = 2228) 4.1 MEQ/L CHLORIDE (test code = 2215) 101 MEQ/L CARBON DIOXIDE (test code = 24 MEQ/L 2205) CALCIUM (test code = 2209) 8.8 MG/DL PROTEIN, TOTAL (test code = 6.6 G/DL 2228) ALBUMIN (test code = 2201) 3.4 G/DL CALCULATED GLOBULIN (test 3.2 G/DL code = 2240) CALCULATED A/G RATIO (test 1.1 RATIO code = 2234) BILIRUBIN, TOTAL (test code = 0.3 MG/DL 2206) ALKALINE PHOSPHATASE (test 99 U/L code = 2204) SGOT (AST) (test code = 2218) 9 U/L SGPT (ALT) (test code = 2219) 11 U/L COMPREHENSIVE METABOLIC [id number] 00:00:00 Test Item Value Reference Range Interpretation Comments GLUCOSE (test code = 2217) 324 MG/DL BUN (test code = 2208) 13 MG/DL CREATININE (test code = 2214) 0.76 MG/DL eGFR AMER. (test code 112 ML/MIN/1.73 = 96576) eGFR NON- AMER. (test 97 ML/MIN/1.73 code = 40456) CALCULATED BUN/CREAT (test 17 RATIO code = 2235) SODIUM (test code = 2231) 132 MEQ/L POTASSIUM (test code = 2228) 4.1 MEQ/L CHLORIDE (test code = 2215) 101 MEQ/L CARBON DIOXIDE (test code = 24 MEQ/L 2205) CALCIUM (test code = 2209) 8.8 MG/DL PROTEIN, TOTAL (test code = 6.6 G/DL 2228) ALBUMIN (test code = 2201) 3.4 G/DL CALCULATED GLOBULIN (test 3.2 G/DL code = 2240) CALCULATED A/G RATIO (test 1.1 RATIO code = 2234) BILIRUBIN, TOTAL (test code = 0.3 MG/DL 2206) ALKALINE PHOSPHATASE (test 99 U/L code = 220) SGOT (AST) (test code = 2218) 9 U/L SGPT (ALT) (test code = 2219) 11 U/L LIPID [id number] 00:00:00 Test Item Value Reference Range Interpretation Comments CHOLESTEROL (test code = 2210) 139 MG/DL TRIGLYCERIDES (test code = 2232) 202 MG/DL HDL CHOLESTEROL (test code = 2220) 38 MG/DL CALCULATED LDL CHOL (test code = 61 MG/DL 7) RISK RATIO LDL/HDL (test code = 1.59 RATIO 2238) LIPID [id number] 00:00:00 Test Item Value Reference Range Interpretation Comments CHOLESTEROL (test code = 2210) 139 MG/DL TRIGLYCERIDES (test code = 2232) 202 MG/DL HDL CHOLESTEROL (test code = 2220) 38 MG/DL CALCULATED LDL CHOL (test code = 61 MG/DL 7) RISK RATIO LDL/HDL (test code = 1.59 RATIO 2238) CBC W/AUTO [id number] 00:00:00 Test Item Value Reference Range Interpretation Comments WBC (test code = 1001) 6.5 K/UL RBC (test code = 1002) 4.47 M/UL HEMOGLOBIN (test code = 1003) 10.1 G/DL HEMATOCRIT (test code = 1004) 32.9 % MCV (test code = 1005) 73.6 fL MCH (test code = 1006) 22.6 PG MCHC (test code = 1007) 30.7 G/DL RDW (test code = 1038) 15.2 % NEUTROPHILS (test code = 1008) 59 % LYMPHOCYTES (test code = 1010) 30 % MONOCYTES (test code = 1011) 10 % EOSINOPHILS (test code = 1012) 1 % BASOPHILS (test code = 1013) % PLATELET COUNT (test code = 1015) 377 K/UL CBC W/AUTO [id number] 00:00:00 Test Item Value Reference Range Interpretation Comments WBC (test code = 1001) 6.5 K/UL RBC (test code = 1002) 4.47 M/UL HEMOGLOBIN (test code = 1003) 10.1 G/DL HEMATOCRIT (test code = 1004) 32.9 % MCV (test code = 1005) 73.6 fL MCH (test code = 1006) 22.6 PG MCHC (test code = 1007) 30.7 G/DL RDW (test code = 1038) 15.2 % NEUTROPHILS (test code = 1008) 59 % LYMPHOCYTES (test code = 1010) 30 % MONOCYTES (test code = 1011) 10 % EOSINOPHILS (test code = 1012) 1 % BASOPHILS (test code = 1013) % PLATELET COUNT (test code = 1015) 377 K/UL CBC W/AUTO [id number] 00:00:00 Test Item Value Reference Range Interpretation Comments WBC (test code = 1001) 6.5 K/UL RBC (test code = 1002) 4.47 M/UL HEMOGLOBIN (test code = 1003) 10.1 G/DL HEMATOCRIT (test code = 1004) 32.9 % MCV (test code = 1005) 73.6 fL MCH (test code = 1006) 22.6 PG MCHC (test code = 1007) 30.7 G/DL RDW (test code = 1038) 15.2 % NEUTROPHILS (test code = 1008) 59 % LYMPHOCYTES (test code = 1010) 30 % MONOCYTES (test code = 1011) 10 % EOSINOPHILS (test code = 1012) 1 % BASOPHILS (test code = 1013) % PLATELET COUNT (test code = 1015) 377 K/UL HEMOGLOBIN [id number] 00:00:00 Test Item Value Reference Range Interpretation Comments HEMOGLOBIN A1c (test code = 19427) 10.9 % HEMOGLOBIN [id number] 00:00:00 Test Item Value Reference Range Interpretation Comments HEMOGLOBIN A1c (test code = 61827) 10.9 % HEMOGLOBIN [id number] 00:00:00 Test Item Value Reference Range Interpretation Comments HEMOGLOBIN A1c (test code = 35574) 10.9 % [id number] 00:00:00 Test Item Value Reference Range Interpretation Comments TSH (test code = 2821) 0.6 UIU/ML [id number] 00:00:00 Test Item Value Reference Range Interpretation Comments TSH (test code = 2821) 0.6 UIU/ML [id number] 00:00:00 Test Item Value Reference Range Interpretation Comments TSH (test code = 2821) 0.6 UIU/ML"
[2022-04-08] MEDS ORDERED: DIAZEPAM 5 MG TABLET ONE (08:21)
[2022-04-08] MEDS ORDERED: KETOROLAC 30 MG/ML INJ ONE (08:21)
--- NOTE | 2022-04-08 08:59 | RAD REPORT ---
EXAM DESCRIPTION: RAD - C Spine Ap/Lat - 04/08/2022 8:51 am CLINICAL HISTORY: PAIN COMPARISON: No comparisons FINDINGS: No acute fracture. No malalignment. Disc height loss endplate spurring is present at C3-4, C4-5, and C5-6. Trace retrolisthesis of C4 on C5 and C5 on C6 is likely related to underlying degene rative changes. IMPRESSION: No acute osseous abnormality involving the cervical spine. Mild to moderate cervical spo ndylosis.
[2022-04-08 09:22] LABS: SARS-COV-2 RT PCR NEGATIVE (NEGATIVE)
--- NOTE | 2022-04-08 09:48 | EDPHYS ---
Physician Documentation [facility] Name: Ever Cruz Age: 51 yrs Sex: Female : 1970 Arrival Date: 04/08/2022 Time: 07:56 Bed 19 Private MD: ED Physician Scott Mabry HPI: 04/08 08:19 This 51 yrs old Black Female presents to ER via Ambulatory with complaints of Neck snw Pain, >24Hrs Old, Shoulder Pain. 08:19 Associated signs and symptoms: The patient has no apparent associated signs or snw symptoms. The patient has not experienced similar symptoms in the past. 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 - Social history:: Smoking status: Patient denies any tobacco usage or history of. ROS: 08:19 Constitutional: Negative for fever, chills, and weight loss, Eyes: Negative for injury, snw pain, redness, and discharge, Cardiovascular: Negative for chest pain, palpitations, and edema, Respiratory: Negative for shortness of breath, cough, wheezing, and pleuritic chest pain, Abdomen/GI: Negative for abdominal pain, nausea, vomiting, diarrhea, and constipation, Back: Negative for injury and pain, : Negative for injury, bleeding, discharge, and swelling, MS/Extremity: Negative for injury and deformity, Skin: Negative for injury, rash, and discoloration, Neuro: Negative for headache, weakness, numbness, tingling, and seizure, Psych: Negative for depression, anxiety, suicide ideation, homicidal ideation, and hallucinations. 08:19 ENT: Positive for sore throat. 08:19 Neck: Positive for swollen nodes, tenderness. Exam: 08:19 Head/Face: Normocephalic, atraumatic. Eyes: Pupils equal round and reactive to light, snw extra-ocular motions intact. Lids and lashes normal. Conjunctiva and sclera are non-icteric and not injected. Cornea within normal limits. Periorbital areas with no swelling, redness, or edema. Neck: Trachea midline, no thyromegaly or masses palpated, and no cervical lymphadenopathy. Supple, full range of motion without nuchal rigidity, or vertebral point tenderness. No Meningismus. Chest/axilla: Normal chest wall appearance and motion. Nontender with no deformity. No lesions are appreciated. 08:19 Respiratory: Lungs have equal breath sounds bilaterally, clear to auscultation and percussion. No rales, rhonchi or wheezes noted. No increased work of breathing, no retractions or nasal flaring. Abdomen/GI: Soft, non-tender, with normal bowel sounds. No distension or tympany. No guarding or rebound. No evidence of tenderness throughout. Back: No spinal tenderness. No costovertebral tenderness. Full range of motion. Skin: Warm, dry with normal turgor. Normal color with no rashes, no lesions, and no evidence of cellulitis. MS/ Extremity: Pulses equal, no cyanosis. Neurovascular intact. Full, normal range of motion. Neuro: Awake and alert, GCS 15, oriented to person, place, time, and situation. Cranial nerves II-XII grossly intact. Motor strength 5/5 in all extremities. Sensory grossly intact. Cerebellar exam normal. Normal gait. Psych: Awake, alert, with orientation to person, place and time. Behavior, mood, and affect are within normal limits. 08:19 Constitutional: The patient appears alert, awake, anxious. 08:19 Cardiovascular: Rate: tachycardic, Rhythm: regular, Pulses: no pulse deficits are appreciated. Vital Signs: 08:09 BP 157 / 85; Pulse 81; Resp 17; Temp 98.1; Pulse Ox 100% ; Weight 104.33 kg; Height 5 ap3 ft. 6 in. (167.64 cm); 08:09 Pain 8/10; ap3 09:12 BP 127 / 84; Pulse 75; Resp 18; Pulse Ox 96% on R/A; db 09:16 Pain 5/10; db 10:06 BP 134 / 50; Pulse 78; Resp 16; Pulse Ox 99% on R/A; db 08:09 Body Mass Index 37.12 (104.33 kg, 167.64 cm) ap3 Dumont Coma Score: 09:16 Eye Response: spontaneous(4). Verbal Response: oriented(5). Motor Response: obeys db commands(6). Total: 15. MDM: 08:08 Patient medically screened. snw 09:51 Differential diagnosis: arthritis, Cervical Raiculopathy Cervical Spondylosis snw torticollis, strep/epiglottis. Data reviewed: vital signs, nurses notes. 04/08 08:19 Order name: COVID-19/FLU A+B; Complete Time: 09:31 snw 04/08 08:19 Order name: Strep; Complete Time: 08:48 snw 04/08 08:23 Order name: C Spine Ap/Lat XRAY; Complete Time: 09:06 snw 04/08 08:50 Order name: Throat Culture EDMS Administered Medications: 08:24 Drug: Ketorolac 30 mg Route: IM; Site: right deltoid; ap3 09:14 Follow up: Response: No adverse reaction; Pain is decreased db 08:24 Drug: Valium (diazepam) 10 mg Route: PO; ap3 09:13 Follow up: Response: No adverse reaction; Pain is decreased db Disposition: 09:40 Co-signature as Attending Physician, Scott COTO was immediately available on-site ms3 in the Emergency Department for consultation in the care of the patient. Disposition Summary: 04/08/22 09:48 Discharge Ordered Location: Home snw Condition: Stable snw Diagnosis - Radiculopathy, cervical region snw - Spasmodic torticollis snw Followup: snw - With: Emergency Department - When: As needed - Reason: Worsening of condition Followup: snw - With: Private Physician - When: 2 - 3 days - Reason: Recheck today's complaints, Continuance of care, Re-evaluation by your physician Discharge Instructions: - Discharge Summary Sheet snw - Cervical Radiculopathy snw - Acute Torticollis, Adult snw - Heat Therapy snw - Radicular Pain snw Forms: - Medication Reconciliation Form snw - Thank You Letter snw - Antibiotic Education snw - Prescription Opioid Use snw Prescriptions: - Mobic 7.5 mg Oral Tablet - take 1 tablet by ORAL route once daily take with food; 20 tablet; Refills: 0, snw Product Selection Permitted - orphenadrine citrate 100 mg Oral Tablet Sustained Release - take 1 tablet by ORAL route 2 times per day As needed; 20 tablet; Refills: 0, snw Product Selection Permitted Signatures: Dispatcher [employer] EDMS Carolyn Jeffery, WELDING PRODUCTION SUPERVISOR-C WELDING PRODUCTION SUPERVISOR-Csnw Yvonne Dunlap RN RN ap3 Scott Mabry DO DO ms3 Briana Barba RN db Corrections: (The following items were deleted from the chart) 08:12 08:10 Allergies: No Known Allergies; ap3 ap3 08: 08:10 Home Meds: amlodipine oral; ap3 ap3 08: 08:10 Home Meds: gabapentin 100 mg Oral cap twice a day; ap3 ap3 08: 08:10 Home Meds: glimepiride 4 mg Oral tab twice a day; ap3 ap3 08:12 08:10 Home Meds: lisinopril-hydrochlorothiazide 20-12.5 mg Oral tab once daily; ap3 ap3 08:12 08:10 Home Meds: metformin 1,000 mg Oral tr24 twice a day; ap3 ap3
--- NOTE | 2022-04-08 09:48 | ER ---
Nurse's Notes [facility] Name: Ever Cruz Age: 51 yrs Sex: Female : 1970 Arrival Date: 04/08/2022 Time: 07:56 Bed 19 Private MD: Diagnosis: Radiculopathy, cervical region;Spasmodic torticollis Presentation: 04/08 08:09 Chief complaint: Patient states: she has been having pain in her neck, left side of her ap3 head and down into her left shoulder. patient states she initially thought she slept wrong, but the pain has continued and hasn't lessened over the last 72 hours. Coronavirus screen: At this time, the client does not indicate any symptoms associated with coronavirus-19. Ebola Screen: No symptoms or risks identified at this time. Initial Sepsis Screen: Does the patient meet any 2 criteria? No. Patient's initial sepsis screen is negative. Does the patient have a suspected source of infection? No. Patient's initial sepsis screen is negative. Risk Assessment: Do you want to hurt yourself or someone else? Patient reports no desire to harm self or others. Onset of symptoms was April 05, 2022. 08:09 Method Of Arrival: Ambulatory ap3 08:09 Acuity: LORNA 3 ap3 Triage Assessment: 08:12 General: Appears uncomfortable, Behavior is calm, cooperative. Pain: Complains of pain ap3 in left side of head, down in to left neck, left shoulder. Neuro: Level of Consciousness is awake, alert, obeys commands, Oriented to person, place, time, situation, Gait is steady, Speech is normal. Cardiovascular: Patient's skin is warm and dry. Respiratory: Airway is patent Respiratory effort is even, unlabored, Respiratory pattern is regular, symmetrical. 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 - Social history:: Smoking status: Patient denies any tobacco usage or history of. Screenin:13 [facility] ED Fall Risk Assessment (Adult) History of falling in the last 3 months, ap3 including since admission No falls in past 3 months (0 pts). Abuse screen: Denies threats or abuse. Nutritional screening: No deficits noted. Tuberculosis screening: No symptoms or risk factors identified. Assessment: 08:30 Reassessment: Patient appears in no apparent distress at this time. Patient and/or db family updated on plan of care and expected duration. Pain level reassessed. Patient is alert, oriented x 3, equal unlabored respirations, skin warm/dry/pink. patient states has shoulder pain going into neck x 3 days and sore throat. General: Appears in no apparent distress. uncomfortable, Behavior is calm, cooperative, appropriate for age. Pain: Complains of pain in back of neck and upper shoulders. Neuro: No deficits noted. Level of Consciousness is awake, alert, obeys commands, Oriented to person, place, time, situation. Cardiovascular: No deficits noted. Respiratory: Airway is patent Respiratory effort is even, unlabored, Respiratory pattern is regular, symmetrical, Denies shortness of breath. GI: No deficits noted. No signs and/or symptoms were reported involving the gastrointestinal system. : No deficits noted. No signs and/or symptoms were reported regarding the genitourinary system. EENT: No deficits noted. No signs and/or symptoms were reported regarding the EENT system. Derm: No deficits noted. 10:06 Reassessment: Patient appears in no apparent distress at this time. Patient and/or db family updated on plan of care and expected duration. Pain level reassessed. Patient is alert, oriented x 3, equal unlabored respirations, skin warm/dry/pink. Patient states feeling better. Patient states symptoms have improved. Vital Signs: 08:09 BP 157 / 85; Pulse 81; Resp 17; Temp 98.1; Pulse Ox 100% ; Weight 104.33 kg; Height 5 ap3 ft. 6 in. (167.64 cm); 08:09 Pain 8/10; ap3 09:12 BP 127 / 84; Pulse 75; Resp 18; Pulse Ox 96% on R/A; db 09:16 Pain 5/10; db 10:06 BP 134 / 50; Pulse 78; Resp 16; Pulse Ox 99% on R/A; db 08:09 Body Mass Index 37.12 (104.33 kg, 167.64 cm) ap3 Boo Coma Score: 09:16 Eye Response: spontaneous(4). Verbal Response: oriented(5). Motor Response: obeys db commands(6). Total: 15. ED Course: 07:56 Patient arrived in ED. am2 07:59 Carolyn Jeffery FNP-C is [facility]. snw 07:59 Scott Mabry DO is Attending Physician. snw 08:10 Triage completed. ap3 08:13 Arm band placed on left wrist. ap3 08:14 Patient has correct armband on for positive identification. Adult w/ patient. ap3 08:20 Briana Barba, RN is Primary Nurse. db 08:53 C Spine Ap/Lat XRAY In Process Unspecified. EDMS 09:16 No provider procedures requiring assistance completed. db 10:07 Patient did not have IV access during this emergency room visit. db Administered Medications: 08:24 Drug: Ketorolac 30 mg Route: IM; Site: right deltoid; ap3 09:14 Follow up: Response: No adverse reaction; Pain is decreased db 08:24 Drug: Valium (diazepam) 10 mg Route: PO; ap3 09:13 Follow up: Response: No adverse reaction; Pain is decreased db Medication: 10:07 VIS not applicable for this client. db Outcome: 09:48 Discharge ordered by . snw 10:07 Discharged to home via wheelchair. db 10:07 Condition: stable 10:07 Discharge instructions given to patient, family, Instructed on discharge instructions, follow up and referral plans. Demonstrated understanding of instructions, follow-up care, Prescriptions given X 2. 10:40 Patient left the ED. db Signatures: Dispatcher [employer] EDMS Carolyn Jeffery FNP-C SALES RECRUITMENT SPECIALIST-Csnw Yvonne Alberto am2 Yvonne Dunlap RN RN ap3 Briana Barba, RN RN db Corrections: (The following items were deleted from the chart) 08:12 08:10 Allergies: No Known Allergies; ap3 ap3 08:12 08:10 Home Meds: amlodipine oral; ap3 ap3 08:12 08:10 Home Meds: gabapentin 100 mg Oral cap twice a day; ap3 ap3 08:12 08:10 Home Meds: glimepiride 4 mg Oral tab twice a day; ap3 ap3 08: 08:10 Home Meds: lisinopril-hydrochlorothiazide 20-12.5 mg Oral tab once daily; ap3 ap3 08:10 Home Meds: metformin 1,000 mg Oral tr24 twice a day; ap3 ap3
[2022-04-08 10:56] VITALS: TEMP 98.1
[2022-04-08 11:02] VITALS: BP 134/50; O2SAT 99
== END 2022-04-08 10:40 | disposition home or self-care (01) ==
LOC: ER 07:53
DX: M54.12 Radiculopathy, cervical region (principal); G24.3 Spasmodic torticollis; Z20.822 Contact with and (suspected) exposure to COVID-19
CPT/HCPCS: 0240U; 72040; 87070; 87081; 96372; 99283

== ENCOUNTER 2023-02-17 22:07 | Emergency (ER) | payer OTHER ==
--- OUTSIDE RECORDS SUMMARY | 2023-02-17 22:13 | XMS REPORT | Continuity of Care Document ---
:1970 Author Organization [facility] t Address [address] [place] [address] [address] [place] [address] Care Team Providers Name Role Phone Pcp, Patient Does Not Have A Primary Care Physician [id number] Doctor Unassigned, [place] Attending Clinician Unavailable SIDNEY WYNN Attending Clinician Unavailable Sidney Wynn MD Attending Clinician SIDNEY WYNN Admitting Clinician Unavailable Problems Condition Condition Condition Status Onset Resolution Last Treating Co mments Source Name Details Category Date Date Treatment Clinician Date Glucose Glucose Disease Active 2012-04 Overview: Univ ers tolerance tolerance 2-05 Formattin i ty of test test 00:00: g of this [place] abnormal abnormal 00 note Medica l might be Branch different from the original. Fasting 276, Hgb A1C- 11.4 Antepartum Antepartum Disease Active 2012-04 Overview : Univers anemia anemia 15 Formattin ity of 00:00: g of this [place] 00 note Medical might be Branch different from the original. H/H- 11.3/35.7 ICD10 Diagnosis Term [employer]ing [employer] Utility Thrombocyt Thrombocyt Disease Active 2012-04 Overview : Univers osis osis 15 Formattin ity of 00:00: g of this [place] 00 note Medical might be Branch different from the original. PLT- 408, decreased to 391. Encounter Encounter Disease Active 2012-04 Overview: Univers for for 14 Formattin ity of routine routine 00:00: g of this [place] gynecologi gynecologi 00 note Me dical galina galina might be Branch examinatio examinatio different n n from the original. ICD10 Diagnosis Term [employer]ing [employer] Utility Otitis Otitis Disease Active 2012-04 Overview: Univer s media media 14 Formattin ity of 00:00: g of this [place] 00 note Medical might be Branch different from the original. ICD10 Diagnosis Term [employer]ing [employer] Utility Candidiasi Candidiasi Disease Active 2012-04 U nivers s of vulva s of vulva 14 it y of [place] vagina [place] Allergic Allergic Disease Active 2012-04 Overview: Un camila rhinitis rhinitis 04-16 Formattin ity of 00:00: g of this [place] note Medical might be Branch different from the original. ICD10 Diagnosis Term [employer]ing [employer] Utility Hx of Hx of Disease Active [...] Headache Disease Active 2012-04 Overview: Un camila 04-16 Formattin ity of 00:00: g of this [place] 00 note Medical might be Branch different from the original. ICD10 Diagnosis Term [employer]ing [employer] Utility Allergies, Adverse Reactions, Alerts Allergy Allergy Status Severity Reaction(s) Onset Inactive Treating Comm ents Source Name Type Date Date Clinician Hmg-Coa Propensi Active Reductas ty to 3-04 e adverse 00:00: Inhibito reaction 00 rs to drug NO KNOWN Drug Active Univers ALLERGIE Class ity of S [facility] Social History Social Habit Start Date Stop Date Quantity Comments Source History [facility] University o f Alcohol Frequency [place] M edical Branch History [facility] University o f Alcohol Std Drinks [facility] History [facility] o f Alcohol Binge [place] Medic al Branch Gender identity Universit y [facility] Sexual orientation Univer sity [facility] Exposure to 2021-11-21 2021-12-01 Not sure University of SARS-CoV-2 (event) 00:00:00 12:03:00 [facility] History of Social 2021-10-12 2021-10-12 Univers ity of function 00:00:00 00:00:00 [facility] Alcohol intake 2021-10-12 2021-10-12 Current drinker Unive rsity of 00:00:00 00:00:00 of alcohol [facility] (finding) [place] Alcohol Comment 2013-02-14 2013-02-14 on occasion Universi ty of 00:00:00 00:00:00 [facility] Tobacco use and 2013-02-14 2013-02-14 Smokeless Universit y of exposure 00:00:00 00:00:00 tobacco non-user [facility] Sex Assigned At [birth year] Universit y of 00:00:00 00:00:00 [facility] Smoking Status Start Date Stop Date Source Never smoked tobacco [facility] Medications Ordered Filled Start Stop Current Ordering Indication Dosage Frequency Signature Comments Components Source Medication Medication Date Date Medication? Clinician (SIG) Name Name HYDROcodone Yes 1{tbl} 1 tablet, Univers -acetaminop 12-01 Oral, ity of hen (NORCO) 19:50: Q6HPRN, Misael as 10-325 mg 31 Starting Medica l tablet 1 on Mon [place] tablet 12/01/21 at 1450, Until Discontinu ed, Routine, Pain (scale 7-10) SUMAtriptan 2021- No 6mg 6 mg, Univ ers (IMITREX) 12-01 Subcutaneo ity of injection 6 19:30: 19:42 us, ONCE, [place] mg 00 :00 1 dose, On Medical [facility] Branch 12/01/21 at 1430, NATHANIEL NaCl 0.9% [...] 00 :00 dose, On Medi galina mg Mon12/01/21 at 1400, NATHANIEL ketorolac 2021-0 2021- No 30mg 30 mg, Unive rs [...] Mon12/01/21 at 1300, STAT butalbital- 2021-0 Yes [id number] 1{tbl} Take 1 Univers acetaminoph 8-31 tablet by ity of en-caff 00:00: mouth [place] 50-325-40 00 every 6 Medical mg tablet (six) Branch hours as needed for Pain (scale 4-6). ketorolac 2021-0 Yes [id number] 10mg Take 1 Un camila 10 mg 8-31 tablet by ity of tablet 00:00: mouth [place] 00 every 8 Medical (eight) Branch hours. metoclopram 2021-0 Yes [id number] 10mg Take 1 Univers melvin HCl 10 8-31 tablet by ity of mg tablet 00:00: mouth [place] 00 every 6 Medical (six) Branch hours. butalbital- 2-0 Yes [id number] 1{tbl} Take 1 Univers acetaminoph 8-31 tablet by ity of en-caff 00:00: mouth [place] 50-325-40 00 every 6 Medical mg tablet (six) Branch hours as needed for Pain (scale 4-6). ketorolac 2-0 Yes [id number] 10mg Take 1 Un camila 10 mg 8-31 tablet by ity of tablet 00:00: mouth [place] 00 every 8 Medical (eight) Branch hours. metoclopram 2022-0 Yes [id number] 10mg Take 1 Univers melvin HCl 10 8-31 tablet by ity of mg tablet 00:00: mouth [place] 00 every 6 Medical (six) Branch hours. Actos 30 mg 2021-0 No 1mg tablet 4-18 00:00: 00 lisinopril 2-0 No 2mg 20 4-18 mg-hydrochl 00:00: orothiazide 00 12.5 mg tablet atorvastati 2-0 No 1mg n 20 mg 4-18 tablet 00:00: 00 amlodipine 2-0 No 1mg 10 mg 4-18 tablet 00:00: 00 glimepiride 2-0 No 1mg 4 mg tablet 4-18 00:00: 00 metformin 2022-0 No 1mg 850 mg 4-18 tablet 00:00: 00 gabapentin 2022-0 No 1mg 300 mg 4-18 capsule 00:00: 00 Dose 2022-0 No Unknown 4-18 [...] Dose 2022-0 No Unknown 3-15 00:00: 00 metformin 2-0 No 1mg 850 mg 3-07 tablet 00:00: 00 Dose 2-0 No Unknown 1-24 00:00: 00 lisinopril 2-0 No 2mg 20 1-24 mg-hydrochl 00:00: orothiazide 00 12.5 mg tablet Actos 30 mg 2-0 No 1mg tablet 1-24 00:00: 00 gabapentin 2-0 No 1mg 300 mg 1-24 capsule 00:00: 00 Bromfed DM 2-0 No 10mg/5 2 mg-30 1-11 mL mg-10 mg/5 00:00: mL oral 00 syrup amlodipine 2020-1 No 1mg 10 mg 2-27 tablet 00:00: 00 paroxetine 1-1 No 1mg 10 mg 2-27 tablet 00:00: 00 hydroxyzine 2020-1 No 1mg HCl 25 mg 2-27 tablet 00:00: 00 gabapentin 1-1 No 1mg 300 mg 2-27 capsule 00:00: 00 Byetta 5 2020-1 No 5mcg/mL mcg/dose 2-20 ) 1.2 (250 00:00: mL mcg/mL)1.2 00 mL subcutaneou s pen injector glimepiride 2020-1 No 1mg 4 mg tablet 2-20 00:00: 00 metformin 2020-1 No 1mg 850 mg 2-20 tablet 00:00: 00 ibuprofen 2020-1 No 1mg 800 mg 2-20 tablet 00:00: [...] mg 1-24 capsule 00:00: 00 Byetta 5 2020-1 No 5mcg/mL mcg/dose 0-28 ) 1.2 (250 00:00: mL mcg/mL)1.2 00 mL subcutaneou s pen injector atorvastati 2020-1 No 1mg n 20 mg 0-28 tablet 00:00: 00 metformin 2020-1 No 1mg 850 mg 0-28 tablet 00:00: 00 hydroxyzine 2020-1 No 1mg HCl 25 mg 0-28 tablet 00:00: 00 gabapentin 2020-1 No 1mg 300 mg 0-28 capsule 00:00: 00 Byetta 5 2020-0 No 5mcg/mL mcg/dose 9-16 ) 1.2 (250 00:00: mL mcg/mL)1.2 00 mL subcutaneou s pen injector amlodipine 2020-0 No 1mg 10 mg 9-16 tablet 00:00: 00 lisinopril 2020-0 No 2mg 20 9-16 mg-hydrochl 00:00: orothiazide 00 12.5 mg tablet Actos 30 mg 2020-0 No 1mg tablet 9-16 00:00: 00 paroxetine 2020-0 No 1mg 10 mg 9-16 tablet 00:00: 00 atorvastati 2020-0 No 1mg n 20 mg 9-16 tablet 00:00: 00 glimepiride 2020-0 No 1mg 4 mg tablet 9-16 00:00: 00 metformin 1-0 No 1mg 850 mg 9-16 tablet 00:00: 00 hydroxyzine 2020-0 No 1mg HCl 25 mg 9-16 tablet 00:00: 00 gabapentin 2020-0 No 1mg 300 mg 9-16 capsule 00:00: 00 metformin 2020-0 No 1mg 850 mg 9-07 tablet 00:00: 00 Bymely 5 2020-0 No 5mcg/mL mcg/dose 6-12 ) 1.2 (250 00:00: mL mcg/mL)1.2 00 mL subcutaneou s pen injector Actos 30 mg 2020-0 No 1mg tablet 6-12 00:00: 00 amlodipine 2020-0 No 1mg 10 mg 6-12 tablet 00:00: 00 lisinopril 2020-0 No 2mg 20 6-12 mg-hydrochl 00:00: orothiazide 00 12.5 mg tablet glimepiride 2020-0 No 1mg 4 mg tablet -12 00:00: 00 metformin 2020-0 No 1mg 850 mg 6-01 tablet 00:00: 00 gabapentin 2020-0 No 1mg 300 mg 6-01 capsule 00:00: 00 Bymely 5 2020-0 No 5mcg/mL mcg/dose 4-22 ) [...] mg-10 mg/5 00:00: mL oral 00 syrup Bymely 5 2020-0 No 5mcg/mL mcg/dose 2-05 ) 1.2 (250 00:00: mL mcg/mL)1.2 00 mL subcutaneou s pen injector Actos 15 mg 2020-0 No 1mg tablet 2-05 00:00: 00 amlodipine 2020-0 No 1mg 10 mg 2-05 tablet 00:00: 00 lisinopril 2020-0 No 2mg 20 2-05 mg-hydrochl 00:00: orothiazide 00 12.5 mg tablet glimepiride 2020-0 No 1mg 4 mg tablet 2-05 00:00: 00 metformin 1-0 No 1mg 850 mg 2-05 tablet 00:00: 00 gabapentin 1-0 No 2mg 100 mg 2-05 capsule 00:00: 00 topiramate 1-0 No 1mg 50 mg 1-06 tablet 00:00: 00 cyclobenzap 2020-0 No 1mg rine 7.5 mg 1-06 tablet 00:00: 00 sumatriptan 2019-1 No 1mg 25 mg 2-30 tablet 00:00: 00 metronidazo 2019-1 No 1mg le 500 mg 2-29 tablet 00:00: 00 Diflucan 2019-1 No mg 150 mg 2-29 tablet 00:00: 00 Byetta 5 2019-1 No 5mcg/mL mcg/dose 2-14 ) 1.2 (250 00:00: mL mcg/mL)1.2 00 mL subcutaneou s pen injector Actos 15 mg 2019- No 1mg tablet 2-14 00:00: 00 amlodipine [...] 4 mg tablet 0-15 00:00: 00 metformin 2020-1 No 1mg 850 mg 0-15 tablet 00:00: 00 gabapentin 2020-1 No 2mg 100 mg 0-15 capsule 00:00: 00 lisinopril 2020-0 No 2mg 20 9-23 mg-hydrochl 00:00: orothiazide 00 12.5 mg tablet glimepiride 2020-0 No 1mg 4 mg tablet 9-23 00:00: 00 metformin 2020-0 No 1mg 850 mg 9-23 tablet 00:00: 00 gabapentin 2020-0 No 2mg 100 mg 9-23 capsule 00:00: 00 triamcinolo 2020-0 No 1% ne 7-27 acetonide 00:00: 0.1 % 00 topical ointment Tessalon 2020-0 No 12mg Perles 100 7-27 mg capsule 00:00: 00 clotrimazol 2020-0 No 1% e 1 % 7-16 vaginal [...] amlodipine 2018-0 No 1mg 5 mg tablet 1- 00:00: 00 amlodipine 2018-0 No 2mg 5 mg tablet 1- 00:00: 00 sumatriptan 2017-1 No 1mg 25 mg 2-06 tablet 00:00: 00 ibuprofen 2017-1 No 1mg 800 mg 2-06 tablet 00:00: 00 cyclobenzap 2017-1 No 12mg rine 5 mg 2-06 tablet 00:00: 00 Tricor 145 2017-1 No 1mg mg tablet 1-13 00:00: 00 phentermine 2017-1 No 1mg 37.5 [...] 00:00: orothiazide 00 12.5 mg tablet glimepiride 2017-0 No 1mg 4 mg tablet 3-31 00:00: 00 metformin 2017-0 No 1mg 850 mg 3-31 tablet 00:00: 00 lovastatin 2017-0 No 1mg 20 mg 3-31 tablet 00:00: 00 gabapentin No 1mg 100 mg 3-31 capsule 00:00: 00 metformin No 1mg 850 mg 2-27 tablet 00:00: 00 metformin No 1mg 850 mg 1-07 tablet 00:00: 00 gabapentin No 1mg 100 mg 1-07 capsule 00:00: 00 lisinopril 2015-04 No 2mg 20 2-10 mg-hydrochl 00:00: orothiazide 00 12.5 mg tablet glimepiride 2015-04 No 1mg 4 mg tablet 2-10 00:00: 00 metformin 2015-04 No 1mg 1,000 mg 2-10 tablet 00:00: 00 lovastatin 2015-04 No 1mg 20 mg 2-10 tablet 00:00: 00 glimepiride 2014-04 No 1mg 4 mg tablet 2-31 00:00: 00 metformin 2014-04 No 1mg 1,000 mg 2-23 tablet 00:00: [...] by mouth ity of (IRON, 00:00: daily. [place] FERROUS 00 Medical SULFATE,) Branch 325 mg (65 mg iron) tablet ferrous 2012-04 Yes 325mg Take 1 Tab Uni vers sulfate 1-15 by mouth ity of (IRON, 00:00: daily. [place] FERROUS 00 Medical SULFATE,) Branch 325 mg (65 mg iron) tablet NAPROXEN 2012-04 Yes Take by Univer s SODIUM 1-14 mouth. ity of (ALEVE 12:27: [place] ORAL) Medical Branch NAPROXEN 2012-04 Yes Take by Univer s SODIUM 1-14 mouth. ity of (ALEVE 12:27: [place] ORAL) 21 Medical Branch DIPHENHYDRA 2012-04 Yes Take by Uni vers MINE HCL 1-14 mouth. ity of (BENADRYL 12:27: [place] ALLERGY 20 Medical ORAL) Branch DIPHENHYDRA 2012-04 Yes Take by Uni vers MINE HCL 1-14 mouth. ity of (BENADRYL 12:27: [place] ALLERGY 20 Medical ORAL) Branch pseudoephed 2012-04 Yes [id number] 60mg Take 1 Tab Univers rine 1-14 by mouth 3 ity of (SUDAFED) 00:00: (three) [place] 60 mg 00 times Medical tablet daily. Branch acetaminoph 2012-04 Yes [id number] 1000mg Take 2 Univers en (TYLENOL 1-14 Tabs by ity o f EXTRA 00:00: mouth [place] STRENGTH) 00 every 6 Medical 500 mg (six) Branch tablet hours as needed for Pain. pseudoephed 2012-04 Yes [id number] 60mg Take 1 Tab Univers rine 1-14 by mouth 3 ity of (SUDAFED) 00:00: (three) [place] 60 mg 00 times Medical tablet daily. Branch acetaminoph 2012-04 Yes [id number] 1000mg Take 2 Univers en (TYLENOL 1-14 Tabs by ity o f EXTRA 00:00: mouth [place] STRENGTH) 00 every 6 Medical 500 mg (six) Branch tablet hours as needed for Pain. Vital Signs Vital Name Observation Time Observation Value Comments Source Systolic blood 2021-12-01 20:40:00 145 mm[Hg] Univer sity of pressure [facility] Diastolic blood 2021-12-01 20:40:00 85 mm[facility]Hg[facility] Heart rate 2021-12-01 20:40:00 89 /min [facility] Respiratory rate 2021-12-01 20:40:00 19 /min [facility] in 2021-12-01 20:40:00 100 /min [facility] Arterial blood by [facility] Pulse oximetry Branch Body temperature 2021-12-01 15:36:00 37.22 Nasima Univ [facility] Body height 2021-12-01 15:36:00 170.2 cm [facility] Body weight 2021-12-01 15:36:00 108.863 kg [facility] BMI 2021-12-01 15:36:00 37.59 kg/m2 [facility] BP Systolic 2021-11-24 11:49:00 134 mm[Hg] BP [...] Procedure Date / Time Performed Performing Clinician [facility] e EXTERNAL PROVIDER 2022-10-11 05:01:00 Doctor Unassigned, No [facility] RECORDS Name Medical [place] COMP. METABOLIC PANEL 2021-12-01 17:59:00 Sidney Wynn [facility] ([id number]) [facility] CBC WITH DIFF 2021-12-01 17:59:00 Sidney Wynn [facility] URINALYSIS 2021-12-01 17:59:00 Sidney Wynn [facility] CT HEAD WO CONTRAST 2021-12-01 17:38:33 Sidney Wynn [facility] CONSENT/REFUSAL FOR 2021-12-01 15:26:11 Doctor Unassigned, No [facility] DIAGNOSIS AND Name Medical Branch TREATMENT Plan of Care Planned Activity Planned Date Details Comments Source Goal Plan of Care Note [code = 48321-8] Goal Plan of Care Note [code = 79977-2] Goal Plan of Care Note [code = 87350-2] Goal Plan of Care Note [code = 21108-0] Goal Plan of Care Note [code = 73076-4] Goal Plan of Care Note [code = 46310-3] Goal Plan of Care Note [code = 12739-9] Goal Plan of Care Note [code = 25958-9] Goal Plan of Care Note [code = 35619-4] Goal Plan of Care Note [code = 33952-6] Goal Plan of Care Note [code = 77892-9] Goal Plan of Care Note [code = 46067-0] Goal Plan of Care Note [code = 02040-4] Goal Plan of Care Note [code = 17455-0] Goal Plan of Care Note [code = 34547-8] Goal Plan of Care Note [code = 87198-3] Goal Plan of Care Note [code = 68419-6] Goal Plan of Care Note [code = 93441-5] Goal Plan of Care Note [code = 13666-8] Goal Plan of Care Note [code = 69854-2] Goal Plan of Care Note [code = 71360-8] Goal Plan of Care Note [code = 32995-9] Goal Plan of Care Note [code = 11813-8] Goal Plan of Care Note [code = 58236-1] Goal Plan of Care Note [code = 73020-2] Goal Plan of Care Note [code = 74109-5] Goal Plan of Care Note [code = 41850-2] Goal Plan of Care Note [code = 14664-4] Goal Plan of Care Note [code = 78563-7] Goal Plan of Care Note [code = 03747-6] Goal Plan of Care Note [code = 35364-8] Goal Plan of Care Note [code = 24972-7] Goal Plan of Care Note [code = 22653-4] Goal Plan of Care Note [code = 80411-6] Goal Plan of Care Note [code = 76591-2] Goal Plan of Care Note [code = 94499-3] Goal Plan of Care Note [code = 88684-2] Goal Plan of Care Note [code = 51552-8] Goal Plan of Care Note [code = 68106-3] Goal Plan of Care Note [code = 91342-2] Goal Plan of Care Note [code = 86943-7] Goal Plan of Care Note [code = 00636-1] Goal Plan of Care Note [code = 25935-9] Goal Plan of Care Note [code = 05984-0] Goal Plan of Care Note [code = 88253-6] Goal Plan of Care Note [code = 10899-3] Goal Plan of Care Note [code = 16871-4] Goal Plan of Care Note [code = 18573-0] Goal Plan of Care Note [code = 33697-0] Encounters Start End Encounter Admission Attending Care Care Encounter Source Date/Time Date/Time Type Type Clinicians Facility Department ID 2023-01-04 2023-01-04 Outpatient SFA SFA [id number] 023 Ezequiel 08:27:17 08:27:17 1004 F [place] 2022-10-11 2022-10-11 Orders Doctor RHINA [id number] Univers 00:00:00 00:00:00 Only Unassigned, MAI 350.1.13.10 ity of [place] [facility] 4.2.7.2.686 Misael as [id number] [address] 2022-09-09 2022-09-09 Outpatient SFA SFA [id number] 023 Ezequiel 12:00:24 12:00:24 [id number] F [place] 2022-08-16 2022-08-16 Outpatient SFA SFA [id number] Ezequiel 17:19:22 17:19:22 0516 F [place] 2022-07-29 2022-07-29 Outpatient SFA SFA [id number] 023 Ezequiel 17:00:15 17:00:15 0428 F [place] 2022-06-16 2022-06-16 Outpatient SFA SFA [id number] 023 Ezequiel 15:47:58 15:47:58 0316 F [place] 2022-04-29 2022-04-29 Outpatient SFA SFA [id number] 023 Ezequiel 16:52:29 16:52:29 0127 F [place] 2022-03-17 2022-03-17 Outpatient SFA SFA [id number] 022 Ezequiel 15:37:43 15:37:43 1215 F [place] 2021-12-01 2021-12-01 Emergency X DUC [facility] [id number] Univers 10:37:00 16:22:00 SIDNEY hernandez [facility] 2021-12-01 2021-12-01 Emergency Wynn, [facility] [id number] Univers 10:37:00 16:22:00 Sidney MCCLAIN 350.1.13.10 i aisha CORINNA 4.2.7.2.686 [facility] [id number] [facility] 084 Branch 2021-11-24 2021-11-24 Outpatient [id number] 00:00:00 00:00:00 Visit [id number] Results Test Description Test Time Test Comments Results Result Comments Source TSH, THIRD GENERATION 2023-01-05 06:15:18 Test Item Value Reference Range Interpretation Comme nts TSH, THIRD GENERATION (test code = 2821) 0.718 UIU/ML 0.400-4.100 HIV 1/2 4TH GEN, RFLX [id number] 04:41:53 Test Item Value Reference Range Interpretation Comments HIV 1/2 4TH GEN, RFLX CONF (test NON-REACTIVE NON-REACTIVE code = 3514) HEPATITIS PANEL, [id number] 04:41:53 Test Item Value Reference Range Interpretation Comments HEPATITIS A IgM (test NON-REACTIVE NON-REACTIVE code = 99381) HEPATITIS B CORE IgM NON-REACTIVE NON-REACTIVE (test code = 4644) HEPATITIS B SURF AG NON-REACTIVE NON-REACTIVE (test code = 2739) HEPATITIS C ANTIBODY NON-REACTIVE NON-REACTIVE (test code = 4675) INTERPRETATION (NOTE) Hepatitis A HEPATITIS A: (test serology shows no code = 2552) evidence of acu te hepatitis A. INTERPRETATION (NOTE) Hepatitis B HEPATITIS B: (test serology shows no code = 77211) evidence of ac [place] hepatitis B and no indication of exposure to hepatitis B vir us in the previous si xto eight months. INTERPRETATION (NOTE) Hepatitis C HEPATITIS C: (test serology shows no code = 76065) evidence of ex posure to hepatitisC v irus at this time. I t can take up to 12 m onths after exposure tothe hepatitis C vir us for antibodies to become detectab le in the blood in ce rtain patients. UNLES S OTHERWISE INDIC ATED, ALL TESTING PERFORMED AT [facility] [place]. [address] [facility] [place] [address] LINDA DE LA ROSA DIRECTOR: Claire DORSEY TAMMY NUMBER [id number] [place] [id number] COMPREHENSIVE METABOLIC [id number] 03:54:44 Test Item Value Reference Range Interpretation Comments GLUCOSE (test code = 2217) 118 MG/DL 70-99 H BUN (test code = 2208) 8 MG/DL 6-20 CREATININE (test code = 2214) 0.69 MG/DL 0.60-1.30 eGFR (2020 CKD-EPI) (test 106 ML/MIN/1.73 >60 code = 32954) CALC BUN/CREAT (test code = 12 RATIO 6-28 2234) SODIUM (test code = 223) 144 MEQ/L 133-146 POTASSIUM (test code = 2228) 3.7 MEQ/L 3.5-5.4 CHLORIDE (test code = 221) 104 MEQ/L 95-107 CARBON DIOXIDE (test code = 30 MEQ/L 19-31 2205) CALCIUM (test code = 2209) 9.5 MG/DL 8.5-10.5 PROTEIN, TOTAL (test code = 7.1 G/DL 6.1-8.3 2228) ALBUMIN (test code = 220) 4.3 G/DL 3.5-5.2 CALC GLOBULIN (test code = 2.8 G/DL 1.9-3.7 2239) CALC A/G RATIO (test code = 1.5 RATIO 1.0-2.6 2233) BILIRUBIN, TOTAL (test code = 0.6 MG/DL <=1.2 2206) ALKALINE PHOSPHATASE (test 110 U/L 40-128 code = 2204) AST (test code = 2218) 18 U/L 9-40 ALT (test code = 2219) 13 U/L 5-40 LIPID [id number] 03:54:44 Test Item Value Reference Range Interpretation Comments CHOLESTEROL (test 198 MG/DL <200 code = 2210) TRIGLYCERIDES (test 111 MG/DL <150 code = 2232) HDL CHOLESTEROL (test 58 MG/DL >39 code = 2220) CALC LDL CHOL (test 118 MG/DL <100 H NOTE: C ALCULATED LDL code = 2237) IS BASED ON BENJIE-MORRIS METHOD WHICHINCLUDES ADJUSTABLE TRIGLYCERIDE:VL DL CHOLESTEROL RAT IO.THIS FACTOR VARIES B Y MEASURED TRIGLY CERIDE AND NON-HDLCHOL ESTEROL CONCENTRATIONS WITH INCREASED CALCU LATED LDL SEENIN HIGH ER TRIGLYCERIDE OR LOWER NON-HDL SPECIME NS. FOR MOREINFORMATION , SEE CLIENT ANNOUNCE MENT AT [email or web address] RISK RATIO LDL/HDL 2.03 RATIO <3.22 (test code = 2238) HEMOGLOBIN [id number] 03:52:39 Test Item Value Reference Range Interpretation Comments HEMOGLOBIN A1c (test 7.1 % 4.2-5.6 H [employer]IC AN DIABETES code = 36466) ASSOCIATION IDELINES FOR HGB A1C: PREDIABETES/INC REASED [...] ALTERN ATE TESTING OR LABORATORY C ONSULTATION. CBC W/AUTO DIFF WITH [id number] 03:36:02 Test Item Value Reference Range Interpretation Comments WBC (test code = 4.2 K/UL 3.5-11.0 1001) RBC (test code = 5.16 M/UL 3.80-5.40 1002) HEMOGLOBIN (test code 12.7 G/DL 11.5-15.5 = 1003) HEMATOCRIT (test code 39.3 % 34.0-45.0 = 1004) MCV (test code = 76.2 fL 80.0-99.0 L 1005) MCH (test code = 24.6 PG 25.0-33.0 L 1006) MCHC (test code = 32.3 G/DL 31.0-36.0 1007) RDW (test code = 13.9 % 11.5-15.0 1038) NEUTROPHILS (test 49.8 % code = 1008) LYMPHOCYTES (test 38.3 % code = 1010) MONOCYTES (test code 6.9 % = 1011) EOSINOPHILS (test 3.6 % code = 1012) BASOPHILS (test code 1.2 % = 1013) IMMATURE GRANULOCYTES 0.2 % (test code = 1036) NUCLEATED RBCS (test 0.0 /100 WBC'S See_Comment [Aut omated code = 1065) message] The sy stem which generated this result transmitted reference range : 0.0. The refere nce range was not u sed to interpret th is result as normal/abnormal . PLATELET COUNT (test 432 K/UL 130-400 H code = 1015) ABSOLUTE NEUTROPHILS 2.08 K/UL 1.50-7.50 (test code = 1066) ABSOLUTE LYMPHOCYTES 1.60 K/UL 1.00-4.00 (test code = 1067) ABSOLUTE MONOCYTES 0.29 K/UL 0.20-1.00 (test code = 1068) ABSOLUTE EOSINOPHILS 0.15 K/UL 0.00-0.50 (test code = 1040) ABSOLUTE BASOPHILS 0.05 K/UL 0.00-0.20 (test code = 1069) ABS IMMATURE 0.01 K/UL 0.00-0.10 GRANULOCYTES (test code = 1020) ABS NUCLEATED RBCS 0.00 K/UL 0.00-0.11 (test code = 10242) BREAST ULTRASOUND [id number] 11:44:21 Name: Ever : 1970 Sex: F - BREAST ULTRASOUND BILATERALCOMPLETEULTRASOUND OF BOTH BREASTS AND AXILLA: 11/18/2022LINICAL: Diffuse left breast pain for 3 months. Patient has lost 60 lbs since last mammogram. No family History. Comparison is made to exam dated 11/18/2022 mammogram - [facility]-. Color flow and real-time ultrasound of both breasts four quadrants, retroareolar, and axilla regions were performed on the areas of interest. The breast tissue has scattered fibroglandular background echotexture. Bilateral survey ultrasound demonstrates no suspicious sonographic abnormality. No axillary lymphadenopathy.IMPRESSION: NEGATIVE There is no sonographic evidence of malignancy. Resume annual screening mammography in one year. (11/19/2023) Marin Purcell M.D. ss/:11/18/2022 11:44:21 Sales Representative Supervisor: Olya Pino FW, [facility] Imaging-FWletter sent: BIRADS 1-2 Normal Ultrasound BI-RADS: 1 NegativeDIAG MAMM BILATERAL CATHERINE CAD [id number] 11:07:12 Name: Ever : 1970 Sex: F - DIAG MAMM BILATERAL CATHERINE CAD DIGITALBILATERAL DIGITAL DIAGNOSTIC MAMMOGRAM 3D/2D WITH CAD: 11/18/2022LINICAL: Left Breast Pain. Digital breast tomosynthesis was performed in addition to routine CC and MLO views. Current mammographic images were evaluated by [facility] CAD (computer-aided detection) software. Comparison is madeto exams dated 08/27/2021 mammogram and 04/24/2020 mammogram - [facility]. There are scattered fibroglandular tissues in both breasts. No suspicious mass, architectural distortion, malignant type calcification, or lymph node abnormality detected. Breast architecture is stable compared to prior exams.IMPRESSION: NEGATIVEThere is no mammographic evidence of malignancy. Resume annual screening mammography in one year. (11/19/2023) Marin Purcell M.D. ss/penrad:11/18/2022 11:07:12 Entry: lt - 11/21/2022 10:19:46Imaging Technologist: Gretel SEYMOUR, [facility] Fmpnaxt-UKDsovyupguWS-DUPN: 1 NegativeCOMP. METABOLIC PANEL (95219)2021-12-01 18:16:48 Test Item Value Reference Range Interpretation Comments NA (test code = 138 mmol/L 135-145 [id number]) K (test code = 4.2 mmol/L 3.5-5 7424513032) CL (test code = 98 mmol/L 98-108 7041143491) CO2 TOTAL (test code = 30 mmol/L 23-31 6389877677) AGAP (test code = 2-16 2448019096) BUN (test code = 11 mg/dL 7-23 5487228841) GLUCOSE (test code = 182 mg/dL 70-110 H 9920509239) CREATININE (test code = 0.60 mg/dL 0.5-1.04 3438122806) TOTAL BILI (test code = 0.8 mg/dL 0.1-1.7 3418097312) CALCIUM (test code = 9.5 mg/dL 8.6-10.6 7388429627) T PROTEIN (test code = 7.7 g/dL 6.3-8.2 6556725485) ALBUMIN (test code = 4.3 g/dL 3.5-5 1113366186) ALK PHOS (test code = 100 U/L 34-122 2089585815) ALTv (test code = 17 U/L 5-35 1742-6) AST(SGOT) (test code = 24 U/L 13-40 4900201897) eGFR (test code = mL/min/1.73m2 9382858512) ABDIEL (test code = ABDIEL) Association of Glomerular Filtration Rate (GFR) and Staging of Kidney Disease* + --+ --+ ------+| GFR (mL/min/1.73 m2) ?| With Kidney Damage ?| ?Without Kidney Damage+ --------+ --------+ +| ?>90 ?| ?Stage one ?| ? Normal ?+ ---+ ---+ -------+| ?60-89 ?| ?Stage two ?| ? Decreased GFR ? + --+ --+ ------+| ?30-59 ?| ?Stage three ?| ? Stage three ? + --+ --+ ------+| ?15-29 ?| ?Stage four ? | ? Stage four ?+ ---+ ---+ -------+| ?<15 (or dialysis) ? ?| ?Stage five ? | ? Stage five ?+ ---+ ---+ -------+ *Each stage assumes the associated GFR [...] or abnormalities in imaging tests). Lab Interpretation Abnormal (test code = 49235-6) [facility] WITH [id number] 18:15:07 Test Item Value Reference Range Interpretation Comments WBC (test code = See_Comment [Automated 3790-2) message] The sy stem which generated this result transmitted reference range : 4.30 - 11.10 10*3/?L. The reference range was not used to interpret this result as normal/abnormal . RBC (test code = See_Comment H [Automated 459-8) message] The sy stem which generated this [...] RDW-SD (test code = 40.1 fL 39-49.9 70784-9) RDW-CV (test code = 15.1 % 12-15.5 788-0) PLT (test code = See_Comment H [Automated 777-3) message] The sy stem which generated this result transmitted reference range : 166 - 358 10*3/ ?L. The reference r dwain was not used to interpret this result as normal/abnormal . MPV (test code = 9.3 fL 9.5-12.9 L 20545-8) NRBC/100 WBC (test See_Comment [Automat ed code = 2136166882) message] The system which generated this result transmitted reference range : 0.0 - 10.0 /100 WBCs. The refer ence range was not u sed to interpret th is result as normal/abnormal . NRBC x10^3 (test code See_Comment [Auto mated = 8660888295) message] The s ystem which generated this result transmitted reference range : 10*3/?L. The reference range was not used to interpret this result as normal/abnormal . GRAN MAT (NEUT) % 58.4 % (test code = 770-8) IMM GRAN % (test code 0.20 % = 8351417750) LYMPH % (test code = 30.6 % 736-9) MONO % (test code = 6.5 % 5905-5) EOS % (test code = 3.7 % 713-8) BASO % (test code = 0.6 % 706-2) GRAN MAT x10^3(ANC) 2.88 10*3/uL 1.88-7.09 (test code = 8151657769) IMM GRAN x10^3 (test 0-0.06 code = 8103209869) LYMPH x10^3 (test code 1.51 10*3/uL 1.32-3.29 = 731-0) MONO x10^3 (test code 0.32 10*3/uL 0.33-0.92 L = 742-7) EOS x10^3 (test code = 0.18 10*3/uL 0.03-0.39 711-2) BASO x10^3 (test code 0.03 10*3/uL 0.01-0.07 = 704-7) Lab Interpretation Abnormal (test code = 09825-0) [facility] W/AUTO DIFF WITH [id number] 06:06:18 Test Item Value Reference Range Interpretation [...] message] code = 1065) WBC'S The system [employer] generated this result transmitted ref erence range: [...] 0.00-0.11 UNLESS O THERWISE (test code = 55533) INDICATE D, ALL TESTING PERFORM ED ATCLINICAL PATH OLOGY LABORATORIES, [place]. [address] [place] [address] [facility] DIRECTOR: YOAN GILLILAND M.D. CLIA NUMBER [id number] [facility] ACCREDITATION N O. [id number] CBC W/AUTO [id number] 00:00:00 Test Item Value Reference Range Interpretation [...] NUCLEATED RBCS (test code = 0.00 K/UL 52267) CBC W/AUTO [id number] 00:00:00 Test Item Value Reference Range Interpretation [...] NUCLEATED RBCS (test code = 0.00 K/UL 71711) CBC W/AUTO [id number] 00:00:00 Test Item Value Reference Range Interpretation [...] NUCLEATED RBCS (test code = 0.00 K/UL 41403) SCR MAMM BILATERAL CATHERINE CAD [id number] 08:00:26 Name: Ever : 1970 Sex: F - SCR MAMM BILATERAL CATHERINE CAD DIGITALBILATERAL DIGITAL SCREENING MAMMOGRAM 3D/2D WITH CAD: 2CLINICAL: Asymptomatic. Digital breasttomosynthesis was performed in addition to routine CC and MLO views. Current mammographic images were evaluated by [facility] CAD (computer-aided detection) software. Comparison is made to exam dated 04/24/2020 mammogram - [facility]. There are scattered fibroglandular tissues in both breasts. No suspicious mass, architectural distortion, malignant type calcification, or lymph node abnormality detected. Breast architecture is stable compared to prior exams.IMPRESSION: NEGATIVEThere is no mammographic evidence of malignancy. Resume annual screening mammography in one year. Kash Ocampo M.D. et/penrad:09/01/2021 08:00:26 Sales Representative Supervisor: Rosana Thorpe MM, [facility] sent: BIRADS 1-2 Normal Mammogram BI-RADS: [address]/NG, NAAT, [id number] 20:54:49 Test Item Value Reference Range Interpretation Comments GONORRHEA, NAAT NEGATIVE NEGATIVE IMPORTA NT NOTICE: SEE (test code = [place] [address]) [email or web address] [email or web address] Note: Assay methodology is nucleic acid amplification b y hybrid technologist m ediated amplification ( TMA) utilizing the A ptima Combo 2 Assay. CHLAMYDIA, NAAT NEGATIVE NEGATIVE IMPORTA NT NOTICE: SEE (test code = [place] [address]) [email or web address] [email or web address] Note: Assay methodology is nucleic acid amplification b y hybrid technologist m ediated amplification ( TMA) utilizing the A ptima Combo 2 Assay. [id number] 05:31:41 Test Item Value Reference Range Interpretation Comments RPR RESULT (test code = NON-REACTIVE NON-REACTIVE 3501) RPR TITER (test code = 3500) NOT INDIC. TITER NOT INDIC. HIV 1/2 4TH GEN, RFLX [id number] 04:35:24 Test Item Value Reference Range Interpretation Comments HIV 1/2 4TH GEN, RFLX CONF (test NON-REACTIVE NON-REACTIVE code = 3514) HEPATITIS PANEL, [id number] 04:35:24 Test Item Value Reference Range Interpretation Comments HEPATITIS A IgM (test NON-REACTIVE NON-REACTIVE code = 03280) HEPATITIS B CORE IgM NON-REACTIVE NON-REACTIVE (test code = 4644) HEPATITIS B SURF AG NON-REACTIVE NON-REACTIVE (test code = 2739) HEPATITIS C ANTIBODY NON-REACTIVE NON-REACTIVE (test code = 4675) INTERPRETATION (NOTE) Hepatitis A HEPATITIS A: (test serology shows no code = 2552) evidence of acu te hepatitis A. INTERPRETATION (NOTE) Hepatitis B HEPATITIS B: (test serology shows no code = 34045) evidence of ac [place] hepatitis B and no indication of exposure to hepatitis B vir us in the previous si xto eight months. INTERPRETATION (NOTE) Hepatitis C HEPATITIS C: (test serology shows no code = 21865) evidence of ex posure to hepatitisC v irus at this time. I t can take up to 12 m onths after exposure tothe hepatitis C vir us for antibodies to become detectab le in the blood in ce rtain patients. UNLES S OTHERWISE INDIC ATED, ALL TESTING PERFORMED [facility], [place] [address] [facility] [place] [address] LINDA WALDROP DIRECTOR: Claire VALLEJOIA NUMBER [id number] [place] [id number] HIV AB/AG COMBO RFLX [id number] 00:00:00 Test Item Value Reference Range Interpretation Comments HIV 1/2 4TH GEN, RFLX CONF (test NON-REACTIVE code = 3514) HIV AB/AG COMBO RFLX [id number] 00:00:00 Test Item Value Reference Range Interpretation Comments HIV 1/2 4TH GEN, RFLX CONF (test NON-REACTIVE code = 3514) [id number] 00:00:00 Test Item Value Reference Range Interpretation Comments RPR RESULT (test code = NON-REACTIVE 3501) RPR TITER (test code = 3500) NOT INDIC. TITER [id number] 00:00:00 Test Item Value Reference Range Interpretation Comments RPR RESULT (test code = NON-REACTIVE 3501) RPR TITER (test code = 3500) NOT INDIC. TITER [id number] 00:00:00 Test Item Value Reference Range Interpretation Comments RPR RESULT (test code = NON-REACTIVE 3501) RPR TITER (test code = 3500) NOT INDIC. TITER GC AND CHLAMYDIA, AMPLIFIED, [id number] 00:00:00 Test Item Value Reference Range Interpretation Comments GONORRHEA, NAAT (test code = 88155) NEGATIVE CHLAMYDIA, NAAT (test code = 78207) NEGATIVE GC AND CHLAMYDIA, AMPLIFIED, [id number] 00:00:00 Test Item Value Reference Range Interpretation Comments GONORRHEA, NAAT (test code = 29024) NEGATIVE CHLAMYDIA, NAAT (test code = 59529) NEGATIVE ACUTE HEPATITIS [id number] 00:00:00 Test Item Value Reference Range Interpretation Comments HEPATITIS A IgM (test code = NON-REACTIVE 39922) HEPATITIS B CORE IgM (test code NON-REACTIVE = 4644) HEPATITIS B SURF AG (test code = NON-REACTIVE 2739) HEPATITIS C ANTIBODY (test code NON-REACTIVE = 4675) INTERPRETATION HEPATITIS A: (NOTE) (test code = 2552) INTERPRETATION HEPATITIS B: (NOTE) (test code = 74303) INTERPRETATION HEPATITIS C: (NOTE) (test code = 50443) ACUTE HEPATITIS [id number] 00:00:00 Test Item Value Reference Range Interpretation Comments HEPATITIS A IgM (test code = NON-REACTIVE 81628) HEPATITIS B CORE IgM (test code NON-REACTIVE = 4644) HEPATITIS B SURF AG (test code = NON-REACTIVE 5615) HEPATITIS C ANTIBODY (test code NON-REACTIVE = 4683) INTERPRETATION HEPATITIS A: (NOTE) (test code = 2552) INTERPRETATION HEPATITIS B: (NOTE) (test code = 89345) INTERPRETATION HEPATITIS C: (NOTE) (test code = 80531) HEMOGLOBIN [id number] 02:07:09 Test Item Value Reference Range Interpretation Comments HEMOGLOBIN A1c (test 8.4 % 4.2-5.6 H AMERIC AN DIABETES code = 24976) ASSOCIATION IDELINES FOR HGB A1C: PREDIABETES/INC REASED [...] UNLESS OTHERWIS E INDICATED, ALL TESTING PER FORMED ATCLINICAL PATH [facility], [address] [address] LABORATORY DIRE CTOR: YOAN GILLILAND M.D. CLIA NUMBER [id number] [facility] [place]. [id number] HEMOGLOBIN [id number] 00:00:00 Test Item Value Reference Range Interpretation Comments HEMOGLOBIN A1c (test code = 82386) 8.4 % HEMOGLOBIN [id number] 00:00:00 Test Item Value Reference Range Interpretation Comments HEMOGLOBIN A1c (test code = 48815) 8.4 % HEMOGLOBIN [id number] 00:00:00 Test Item Value Reference Range Interpretation Comments HEMOGLOBIN A1c (test code = 25346) 8.4 % SARS-CoV-2 (COVID-19), RT-[id number] 12:50:25 Test Item Value Reference Interpretation Comments Range SARS-CoV-2 NEGATIVE SEE NOTE SARS-CoV-2 RNA NOT INTERPRETATION DETECTEDNegat sandro (test code = 01918) results do not preclude SARS-CoV-2 infe ction [...] code = [place]IF[place]: [place] [address]) Michael Estella [place] l-Time RT-PCR. The exp ected result or refer ence range is NEGATI VE (Not Detected). For more information reg arding COVID-19 testin g to include clinicalinforma tion, methodology det ail, intended use, F DA authorization andrecommended fact sheets for rubens ents or healthcare prov iders, see COH Announcement: SARS-CoV-2 (COV ID-19) by NAAT at URL below (note,fact shee ts are provided by met hod given in report:https:// www.[email or web address]/clinici [email or web address] nt-communicatio ns/ Alternatively, see downloadable PD F fact sheet at:[email or web address]://[email or web address]. [employer]oria/COVID-19-RT -PCR UNLESS OTHERWIS E INDICATED, ALL TESTING PERFORMED [facility] N[facility] [employer] [address] [place] [address] 4 LABORATORY DIRE CTOR: YOAN GRAY M.D. CLIA NUMBER [id number] [place] [id number] SARS-CoV-2 (COVID-19) by RT-PCR (HIGH RISK)2021-04-24 00:00:00 Test Item Value Reference Range Interpretation Comments SARS-CoV-2 INTERPRETATION (test NEGATIVE code = 18224) SOURCE (test code = 12259) NOT SPECIFIED SARS-CoV-2 (COVID-19) by RT-PCR (HIGH RISK)2021-04-24 00:00:00 Test Item Value Reference Range Interpretation Comments SARS-CoV-2 INTERPRETATION (test NEGATIVE code = 87439) SOURCE (test code = 75193) NOT SPECIFIED LIPID [id number] 04:20:31 Test Item Value Reference Range Interpretation [...] MOREINFORMATION , SEE CLIENT ANNOUNCE MENT AT [email or web address]://www.[email or web address].[email or web address] /CalcLDL-C RISK RATIO LDL/HDL 1.77 RATIO <3.22 UNLESS O THERWISE (test code = 2238) INDICATED , ALL TESTING PERFORMED [facility], [facility]. [address] [place] [id number] [place] [address] DIRECTOR: YOAN GILLILAND M.D. CLIA NUMBER [id number] [place] N O. [id number] HEMOGLOBIN [id number] 03:07:21 Test Item Value Reference Range Interpretation Comments HEMOGLOBIN A1c (test 11.3 % 4.2-5.6 H AMERIC AN DIABETES code = 73593) ASSOCIATION IDELINES FOR HGB A1C: PREDIABETES/INC REASED [...] ATE TESTING OR LABORATORY C ONSULTATION. HEMOGLOBIN [id number] 00:00:00 Test Item Value Reference Range Interpretation Comments HEMOGLOBIN A1c (test code = 59596) 11.3 % HEMOGLOBIN [id number] 00:00:00 Test Item Value Reference Range Interpretation Comments HEMOGLOBIN A1c (test code = 35455) 11.3 % HEMOGLOBIN [id number] 00:00:00 Test Item Value Reference Range Interpretation Comments HEMOGLOBIN A1c (test code = 67957) 11.3 % LIPID [id number] 00:00:00 Test Item Value Reference Range Interpretation Comments CHOLESTEROL (test code = 2210) 139 MG/DL TRIGLYCERIDES (test code = 2232) 118 MG/DL HDL CHOLESTEROL (test code = 2220) 43 MG/DL CALC LDL CHOL (test code = 2237) 76 MG/DL RISK RATIO LDL/HDL (test code = 1.77 RATIO 2238) LIPID [id number] 00:00:00 Test Item Value Reference Range Interpretation Comments CHOLESTEROL (test code = 2210) 139 MG/DL TRIGLYCERIDES (test code = 2232) 118 MG/DL HDL CHOLESTEROL (test code = 2220) 43 MG/DL CALC LDL CHOL (test code = 2237) 76 MG/DL RISK RATIO LDL/HDL (test code = 1.77 RATIO 2238) CBC W/AUTO [id number] 00:00:00 Test Item Value Reference Range Interpretation [...] NUCLEATED RBCS (test code = 0.00 K/UL 80470) CBC W/AUTO [id number] 00:00:00 Test Item Value Reference Range Interpretation [...] NUCLEATED RBCS (test code = 0.00 K/UL 86793) CBC W/AUTO [id number] 00:00:00 Test Item Value Reference Range Interpretation [...] NUCLEATED RBCS (test code = 0.00 K/UL 43031) HEMOGLOBIN [id number] 00:00:00 Test Item Value Reference Range Interpretation Comments HEMOGLOBIN A1c (test code = 29462) 9.9 % HEMOGLOBIN [id number] 00:00:00 Test Item Value Reference Range Interpretation Comments HEMOGLOBIN A1c (test code = 82941) 9.9 % HEMOGLOBIN [id number] 00:00:00 Test Item Value Reference Range Interpretation Comments HEMOGLOBIN A1c (test code = 99511) 9.9 % VITAMIN D, 25 [id number] 00:00:00 Test Item Value Reference Range Interpretation Comments VITAMIN D, 25 OH (test code = 4958) 11 NG/ML VITAMIN D, 25 [id number] 00:00:00 Test Item Value Reference Range Interpretation Comments VITAMIN D, 25 OH (test code = 4958) 11 NG/ML [id number] 00:00:00 Test Item Value Reference Range Interpretation Comments TSH, THIRD GENERATION (test code 0.968 UIU/ML = 2821) [id number] 00:00:00 Test Item Value Reference Range Interpretation Comments TSH, THIRD GENERATION (test code 0.968 UIU/ML = 2821) [id number] 00:00:00 Test Item Value Reference Range Interpretation Comments TSH, THIRD GENERATION (test code 0.968 UIU/ML = 2821) CBC W/AUTO [id number] 00:00:00 Test Item Value Reference Range Interpretation [...] NUCLEATED RBCS (test code = 0.00 K/UL 55050) CBC W/AUTO [id number] 00:00:00 Test Item Value Reference Range Interpretation [...] NUCLEATED RBCS (test code = 0.00 K/UL 88869) CBC W/AUTO [id number] 00:00:00 Test Item Value Reference Range Interpretation [...] NUCLEATED RBCS (test code = 0.00 K/UL 54116) HEMOGLOBIN [id number] 00:00:00 Test Item Value Reference Range Interpretation Comments HEMOGLOBIN A1c (test code = 50873) 9.3 % HEMOGLOBIN [id number] 00:00:00 Test Item Value Reference Range Interpretation Comments HEMOGLOBIN A1c (test code = 90064) 9.3 % HEMOGLOBIN [id number] 00:00:00 Test Item Value Reference Range Interpretation Comments HEMOGLOBIN A1c (test code = 66764) 9.3 % LIPID [id number] 00:00:00 Test Item Value Reference Range Interpretation Comments CHOLESTEROL (test code = 2210) 184 MG/DL TRIGLYCERIDES (test code = 2232) 179 MG/DL HDL CHOLESTEROL (test code = 2220) 49 MG/DL CALC LDL CHOL (test code = 2237) 105 MG/DL RISK RATIO LDL/HDL (test code = 2.14 RATIO 2238) LIPID [id number] 00:00:00 Test Item Value Reference Range Interpretation Comments CHOLESTEROL (test code = 2210) 184 MG/DL TRIGLYCERIDES (test code = 2232) 179 MG/DL HDL CHOLESTEROL (test code = 2220) 49 MG/DL CALC LDL CHOL (test code = 2237) 105 MG/DL RISK RATIO LDL/HDL (test code = 2.14 RATIO 2238) COMPREHENSIVE METABOLIC [id number] 00:00:00 Test Item Value Reference Range Interpretation Comments GLUCOSE (test code = 2217) 128 MG/DL BUN (test code = 2208) 12 MG/DL CREATININE (test code = 2214) 0.80 MG/DL eGFR AMER. (test code 101 ML/MIN/1.73 = 13081) eGFR NON- AMER. (test 87 ML/MIN/1.73 code = 67917) CALC BUN/CREAT (test code = 15 RATIO 2235) SODIUM (test code = 2231) 138 MEQ/L POTASSIUM (test code = 2228) 3.9 MEQ/L CHLORIDE (test code = 2215) 99 MEQ/L CARBON DIOXIDE (test code = 27 MEQ/L 2205) CALCIUM (test code = 2209) 9.9 MG/DL PROTEIN, TOTAL (test code = 7.7 G/DL 2229) ALBUMIN (test code = 2201) 4.2 G/DL CALC GLOBULIN (test code = 3.5 G/DL 2240) CALC A/G RATIO (test code = 1.2 RATIO 2234) BILIRUBIN, TOTAL (test code = 0.3 MG/DL 2207) ALKALINE PHOSPHATASE (test 96 U/L code = 2204) AST (test code = 2218) 13 U/L ALT (test code = 2219) 15 U/L COMPREHENSIVE METABOLIC [id number] 00:00:00 Test Item Value Reference Range Interpretation Comments GLUCOSE (test code = 2217) 128 MG/DL BUN (test code = 2208) 12 MG/DL CREATININE (test code = 2214) 0.80 MG/DL eGFR AMER. (test code 101 ML/MIN/1.73 = 91989) eGFR NON- AMER. (test 87 ML/MIN/1.73 code = 64061) CALC BUN/CREAT (test code = 15 RATIO 2235) SODIUM (test code = 2231) 138 MEQ/L POTASSIUM (test code = 2228) 3.9 MEQ/L CHLORIDE (test code = 2215) 99 MEQ/L CARBON DIOXIDE (test code = 27 MEQ/L 2206) CALCIUM (test code = 2209) 9.9 MG/DL PROTEIN, TOTAL (test code = 7.7 G/DL 2229) ALBUMIN (test code = 2201) 4.2 G/DL CALC GLOBULIN (test code = 3.5 G/DL 2240) CALC A/G RATIO (test code = 1.2 RATIO 2234) BILIRUBIN, TOTAL (test code = 0.3 MG/DL 2207) ALKALINE PHOSPHATASE (test 96 U/L code = 2204) AST (test code = 2218) 13 U/L ALT (test code = 2219) 15 U/L SCR MAMM BILATERAL CATHERINE CAD [id number] 16:32:47 Name: Ever : 1970 Sex: F - SCR MAMM BILATERAL CATHERINE CAD DIGITALBILATERAL DIGITAL SCREENING MAMMOGRAM 3D/2D WITH CAD: 04/24/2020LINICAL: Asymptomatic. Digital breasttomosynthesis was performed in addition to routine CC and MLO views. Current mammographic images were evaluated by either a [employer]u or a [employer] CAD (computer aided detection system). No prior exams were available for comparison. There are scattered fibroglandular tissues in both breasts. There is a benign density in the left breast. No suspicious mass, architectural distortion, malignant type calcification, or lymph node abnormality detected. IMPRESSION: BENIGNThere is no mammographic evidence of malignancy. Resume annual screening mammography in one year. Fabi Arredondo M.D. scduane/penrad:04/27/2020 16:32:47 Sales Representative Supervisor: Keri Putnam MM, [facility] Mammographyletter sent: BIRADS 1-2 Normal Mammogram BI-RADS: 2 BenignGC AND CHLAMYDIA AMPLIFIED, [id number] 00:00:00 Test Item Value Reference Range Interpretation Comments GONORRHEA, TMA (test code = 58905) NEGATIVE CHLAMYDIA, TMA (test code = 74246) NEGATIVE GC AND CHLAMYDIA AMPLIFIED, [id number] 00:00:00 Test Item Value Reference Range Interpretation Comments GONORRHEA, TMA (test code = 22760) NEGATIVE CHLAMYDIA, TMA (test code = 88013) NEGATIVE PAP TEST, THINPREP, [id number] 00:00:00 Test Item Value Reference Range Interpretation Comments SOURCE: (test code = Cervical/Endocervical 8001) SLIDES: (test code = 1 8011) LMP: (test code = 8021) 07/2019 SPECIMEN ADEQUACY: (test (NOTE) code = 34682) INTERPRETATION: (test NILM/NO EPITH. code = 31890) ABNORMALITY;SEE BELOW OTHER COMMENTS: (test (NOTE) code = 8081) LAND ECONOMIST: (test DON Valentine (ASCP) code = 8101) LOCATION: (test code = (NOTE) 75462) CPT: (test code = 8140) (NOTE) PAP TEST, THINPREP, [id number] 00:00:00 Test Item Value Reference Range Interpretation Comments SOURCE: (test code = Cervical/Endocervical 8001) SLIDES: (test code = 1 8011) LMP: (test code = 8021) 07/2019 SPECIMEN ADEQUACY: (test (NOTE) code = 10864) INTERPRETATION: (test NILM/NO EPITH. code = 90518) ABNORMALITY;SEE BELOW OTHER COMMENTS: (test (NOTE) code = 8081) LAND ECONOMIST: (test Fabi Ho CT (ASCP) code = 8101) LOCATION: (test code = (NOTE) 48085) CPT: (test code = 8140) (NOTE) VAGINAL PATHOGENS DNA [id number] 00:00:00 Test Item Value Reference Range Interpretation Comments SUBHASH SPECIES (test code = ) POSITIVE G. VAGINALIS (test code = 84548) POSITIVE T. VAGINALIS (test code = 94894) NEGATIVE HIV AB/AG COMBO RFLX [id number] 00:00:00 Test Item Value Reference Range Interpretation Comments HIV 1/2 4TH GEN, RFLX CONF (test NON-REACTIVE code = 3514) HIV AB/AG COMBO RFLX [id number] 00:00:00 Test Item Value Reference Range Interpretation Comments HIV 1/2 4TH GEN, RFLX CONF (test NON-REACTIVE code = 3514) VAGINAL PATHOGENS DNA [id number] 00:00:00 Test Item Value Reference Range Interpretation Comments SUBHASH SPECIES (test code = ) POSITIVE G. VAGINALIS (test code = 30919) POSITIVE T. VAGINALIS (test code = 90396) NEGATIVE ACUTE HEPATITIS [id number] 00:00:00 Test Item Value Reference Range Interpretation Comments HEPATITIS A IgM (test code = NON-REACTIVE 71114) HEPATITIS B CORE IgM (test code NON-REACTIVE = 4644) HEPATITIS B SURF AG (test code = NON-REACTIVE 8809) HEPATITIS C ANTIBODY (test code NON-REACTIVE = 6736) INTERPRETATION HEPATITIS A: (NOTE) (test code = 2552) INTERPRETATION HEPATITIS B: (NOTE) (test code = 46254) INTERPRETATION HEPATITIS C: (NOTE) (test code = 62889) ACUTE HEPATITIS [id number] 00:00:00 Test Item Value Reference Range Interpretation Comments HEPATITIS A IgM (test code = NON-REACTIVE 26073) HEPATITIS B CORE IgM (test code NON-REACTIVE = 4644) HEPATITIS B SURF AG (test code = NON-REACTIVE 9459) HEPATITIS C ANTIBODY (test code NON-REACTIVE = 4613) INTERPRETATION HEPATITIS A: (NOTE) (test code = 2552) INTERPRETATION HEPATITIS B: (NOTE) (test code = 06034) INTERPRETATION HEPATITIS C: (NOTE) (test code = 37174) [id number] 00:00:00 Test Item Value Reference Range Interpretation Comments RPR RESULT (test code = NON-REACTIVE 3501) RPR TITER (test code = 3500) NOT INDIC. TITER HPV HIGH RISK WITH GENOTYPE, [id number] 00:00:00 Test Item Value Reference Range Interpretation Comments HPV HIGH RISK INTERP (test code = NEGATIVE 62751) HPV 16 (test code = 22510) NEGATIVE HPV 18 (test code = 58148) NEGATIVE HPV, HR, OTHER GENOTYPES (test code NEGATIVE = 88106) [id number] 00:00:00 Test Item Value Reference Range Interpretation Comments RPR RESULT (test code = NON-REACTIVE 3501) RPR TITER (test code = 3500) NOT INDIC. TITER [id number] 00:00:00 Test Item Value Reference Range Interpretation Comments RPR RESULT (test code = NON-REACTIVE 3501) RPR TITER (test code = 3500) NOT INDIC. TITER HPV HIGH RISK WITH GENOTYPE, [id number] 00:00:00 Test Item Value Reference Range Interpretation Comments HPV HIGH RISK INTERP (test code = NEGATIVE 52219) HPV 16 (test code = 52705) NEGATIVE HPV 18 (test code = 79631) NEGATIVE HPV, HR, OTHER GENOTYPES (test code NEGATIVE = 05957) LIPID [id number] 00:00:00 Test Item Value Reference Range Interpretation Comments CHOLESTEROL (test code = 2210) 171 MG/DL TRIGLYCERIDES (test code = 2232) 252 MG/DL HDL CHOLESTEROL (test code = 2220) 45 MG/DL CALC LDL CHOL (test code = 2237) 93 MG/DL RISK RATIO LDL/HDL (test code = 2.07 RATIO 2238) LIPID [id number] 00:00:00 Test Item Value Reference Range Interpretation Comments CHOLESTEROL (test code = 2210) 171 MG/DL TRIGLYCERIDES (test code = 2232) 252 MG/DL HDL CHOLESTEROL (test code = 2220) 45 MG/DL CALC LDL CHOL (test code = 2237) 93 MG/DL RISK RATIO LDL/HDL (test code = 2.07 RATIO 2238) COMPREHENSIVE METABOLIC [id number] 00:00:00 Test Item Value Reference Range Interpretation Comments GLUCOSE (test code = 2217) 332 MG/DL BUN (test code = 2208) 13 MG/DL CREATININE (test code = 2214) 0.86 MG/DL eGFR AMER. (test code 93 ML/MIN/1.73 = 54075) eGFR NON- AMER. (test 80 ML/MIN/1.73 code = 11797) CALC BUN/CREAT (test code = 15 RATIO 2235) SODIUM (test code = 2231) 137 MEQ/L POTASSIUM (test code = 2228) 3.8 MEQ/L CHLORIDE (test code = 2215) 97 MEQ/L CARBON DIOXIDE (test code = 23 MEQ/L 2206) CALCIUM (test code = 2209) 10.3 MG/DL PROTEIN, TOTAL (test code = 7.4 G/DL 2229) ALBUMIN (test code = 2201) 4.1 G/DL CALC GLOBULIN (test code = 3.3 G/DL 2240) CALC A/G RATIO (test code = 1.2 RATIO 2234) BILIRUBIN, TOTAL (test code = <0.2 MG/DL 2207) ALKALINE PHOSPHATASE (test 118 U/L code = 2204) AST (test code = 2218) 15 U/L ALT (test code = 2219) 21 U/L COMPREHENSIVE METABOLIC [id number] 00:00:00 Test Item Value Reference Range Interpretation Comments GLUCOSE (test code = 2217) 332 MG/DL BUN (test code = 2208) 13 MG/DL CREATININE (test code = 2214) 0.86 MG/DL eGFR AMER. (test code 93 ML/MIN/1.73 = 20329) eGFR NON- AMER. (test 80 ML/MIN/1.73 code = 14346) CALC BUN/CREAT (test code = 15 RATIO [...] (test code = 2219) 21 U/L HEMOGLOBIN [id number] 00:00:00 Test Item Value Reference Range Interpretation Comments HEMOGLOBIN A1c (test code = 66921) 12.5 % HEMOGLOBIN [id number] 00:00:00 Test Item Value Reference Range Interpretation Comments HEMOGLOBIN A1c (test code = 01813) 12.5 % HEMOGLOBIN [id number] 00:00:00 Test Item Value Reference Range Interpretation Comments HEMOGLOBIN A1c (test code = 66700) 12.5 % SARS-CoV-2 (COVID-19) by RT-PCR (HIGH RISK)2019-10-25 00:00:00 Test Item Value Reference Range Interpretation Comments SARS-CoV-2 INTERPRETATION (test NEGATIVE code = 18678) SOURCE (test code = 12363) NOT SPECIFIED SARS-CoV-2 (COVID-19) by RT-PCR (HIGH RISK)2019-10-25 00:00:00 Test Item Value Reference Range Interpretation Comments SARS-CoV-2 INTERPRETATION (test NEGATIVE code = 17511) SOURCE (test code = 06378) NOT SPECIFIED SARS-CoV-2 (COVID-19) by RT-PCR (HIGH RISK)2019-10-06 00:00:00 Test Item Value Reference Range Interpretation Comments SARS-CoV-2 INTERPRETATION (test POSITIVE code = 10394) SOURCE (test code = 76269) NOT SPECIFIED SARS-CoV-2 (COVID-19) by RT-PCR (HIGH RISK)2019-10-06 00:00:00 Test Item Value Reference Range Interpretation Comments SARS-CoV-2 INTERPRETATION (test POSITIVE code = 78951) SOURCE (test code = 36746) NOT SPECIFIED HEMOGLOBIN [id number] 00:00:00 Test Item Value Reference Range Interpretation Comments HEMOGLOBIN A1c (test code = 78566) 12.3 % HEMOGLOBIN [id number] 00:00:00 Test Item Value Reference Range Interpretation Comments HEMOGLOBIN A1c (test code = 06248) 12.3 % HEMOGLOBIN [id number] 00:00:00 Test Item Value Reference Range Interpretation Comments HEMOGLOBIN A1c (test code = 33777) 12.3 % MICROALBUMIN/CREATININE, RANDOM AND [id number] 00:00:00 Test Item Value Reference Range Interpretation Comments CREATININE, URINE, CONC. (test 72.1 MG/DL code = 2072) ALBUMIN, URINE, RANDOM (test code <0.2 MG/DL = 97486) CALC ALBUMIN/CREAT, RND (test code <3 MG/G = 60739) MICROALBUMIN/CREATININE, RANDOM AND [id number] 00:00:00 Test Item Value Reference Range Interpretation Comments CREATININE, URINE, CONC. (test 72.1 MG/DL code = 2072) ALBUMIN, URINE, RANDOM (test code <0.2 MG/DL = 88889) CALC ALBUMIN/CREAT, RND (test code <3 MG/G = 32520) HEMOGLOBIN [id number] 00:00:00 Test Item Value Reference Range Interpretation Comments HEMOGLOBIN A1c (test code = 10331) 9.3 % HEMOGLOBIN [id number] 00:00:00 Test Item Value Reference Range Interpretation Comments HEMOGLOBIN A1c (test code = 61250) 9.3 % HEMOGLOBIN [id number] 00:00:00 Test Item Value Reference Range Interpretation Comments HEMOGLOBIN A1c (test code = 80764) 9.3 % LIPID [id number] 00:00:00 Test Item Value Reference Range Interpretation Comments CHOLESTEROL (test code = 2210) 159 MG/DL TRIGLYCERIDES (test code = 2232) 186 MG/DL HDL CHOLESTEROL (test code = 2220) 51 MG/DL CALC LDL CHOL (test code = 2237) 71 MG/DL RISK RATIO LDL/HDL (test code = 1.39 RATIO 2238) LIPID [id number] 00:00:00 Test Item Value Reference Range Interpretation Comments CHOLESTEROL (test code = 2210) 159 MG/DL TRIGLYCERIDES (test code = 2232) 186 MG/DL HDL CHOLESTEROL (test code = 2220) 51 MG/DL CALC LDL CHOL (test code = 2237) 71 MG/DL RISK RATIO LDL/HDL (test code = 1.39 RATIO 2238) COMPREHENSIVE METABOLIC [id number] 00:00:00 Test Item Value Reference Range Interpretation Comments GLUCOSE (test code = 2217) 189 MG/DL BUN (test code = 2208) 12 MG/DL CREATININE (test code = 2214) 0.79 MG/DL eGFR AMER. (test code 104 ML/MIN/1.73 = 39565) eGFR NON- AMER. (test 90 ML/MIN/1.73 code = 29336) CALC BUN/CREAT (test code = 15 RATIO [...] CALC GLOBULIN (test code = 3.1 G/DL 0) CALC A/G RATIO (test code = 1.3 RATIO 2233) BILIRUBIN, TOTAL (test code = 0.3 MG/DL 2206) ALKALINE PHOSPHATASE (test 91 U/L code = 2204) AST (test code = 2218) 12 U/L ALT (test code = 2219) 16 U/L COMPREHENSIVE METABOLIC [id number] 00:00:00 Test Item Value Reference Range Interpretation Comments GLUCOSE (test code = 2217) 189 MG/DL BUN (test code = 2208) 12 MG/DL CREATININE (test code = 2214) 0.79 MG/DL eGFR AMER. (test code 104 ML/MIN/1.73 = 60796) eGFR NON- AMER. (test 90 ML/MIN/1.73 code = 47419) CALC BUN/CREAT (test code = 15 RATIO [...] 2219) 16 U/L GC AND CHLAMYDIA, AMPLIFIED, [id number] 00:00:00 Test Item Value Reference Range Interpretation Comments GONORRHEA, TMA (test code = 58513) NEGATIVE CHLAMYDIA, TMA (test code = 83527) NEGATIVE GC AND CHLAMYDIA, AMPLIFIED, [id number] 00:00:00 Test Item Value Reference Range Interpretation Comments GONORRHEA, TMA (test code = 16822) NEGATIVE CHLAMYDIA, TMA (test code = 06105) NEGATIVE HEMOGLOBIN [id number] 00:00:00 Test Item Value Reference Range Interpretation Comments HEMOGLOBIN A1c (test code = 77662) 9.6 % HEMOGLOBIN [id number] 00:00:00 Test Item Value Reference Range Interpretation Comments HEMOGLOBIN A1c (test code = 90729) 9.6 % HEMOGLOBIN [id number] 00:00:00 Test Item Value Reference Range Interpretation Comments HEMOGLOBIN A1c (test code = 89427) 9.6 % CBC W/AUTO [id number] 00:00:00 Test Item Value Reference Range Interpretation [...] code = 1015) 443 K/UL CBC W/AUTO [id number] 00:00:00 Test Item Value Reference Range Interpretation [...] code = 1015) 443 K/UL CBC W/AUTO [id number] 00:00:00 Test Item Value Reference Range Interpretation [...] code = 1015) 443 K/UL COMPREHENSIVE METABOLIC [id number] 00:00:00 Test Item Value Reference Range Interpretation Comments GLUCOSE (test code = 2217) 226 MG/DL BUN (test code = 2208) 17 MG/DL CREATININE (test code = 2214) 0.74 MG/DL eGFR AMER. (test code 113 ML/MIN/1.73 = 01597) eGFR NON- AMER. (test 98 ML/MIN/1.73 code = 84287) CALC BUN/CREAT (test code = 23 RATIO [...] code = 2219) 14 U/L COMPREHENSIVE METABOLIC [id number] 00:00:00 Test Item Value Reference Range Interpretation Comments GLUCOSE (test code = 2217) 226 MG/DL BUN (test code = 2208) 17 MG/DL CREATININE (test code = 2214) 0.74 MG/DL eGFR AMER. (test code 113 ML/MIN/1.73 = 38478) eGFR NON- AMER. (test 98 ML/MIN/1.73 code = 21943) CALC BUN/CREAT (test code = 23 RATIO 2235) SODIUM (test code = 2231) 139 MEQ/L POTASSIUM (test code = 2228) 4.2 MEQ/L CHLORIDE (test code = 2215) 95 MEQ/L CARBON DIOXIDE (test code = 29 MEQ/L 2206) CALCIUM (test code = 2209) 10.0 MG/DL [...] (test code = 2219) 14 U/L LIPID [id number] 00:00:00 Test Item Value Reference Range Interpretation Comments CHOLESTEROL (test code = 2210) 174 MG/DL TRIGLYCERIDES (test code = 2232) 279 MG/DL HDL CHOLESTEROL (test code = 2220) 45 MG/DL CALC LDL CHOL (test code = 2237) 73 MG/DL RISK RATIO LDL/HDL (test code = 1.63 RATIO 2238) LIPID [id number] 00:00:00 Test Item Value Reference Range Interpretation Comments CHOLESTEROL (test code = 2210) 174 MG/DL TRIGLYCERIDES (test code = 2232) 279 MG/DL HDL CHOLESTEROL (test code = 2220) 45 MG/DL CALC LDL CHOL (test code = 2237) 73 MG/DL RISK RATIO LDL/HDL (test code = 1.63 RATIO 2238) HEMOGLOBIN [id number] 00:00:00 Test Item Value Reference Range Interpretation Comments HEMOGLOBIN A1c (test code = 43689) 10.2 % HEMOGLOBIN [id number] 00:00:00 Test Item Value Reference Range Interpretation Comments HEMOGLOBIN A1c (test code = 22616) 10.2 % HEMOGLOBIN [id number] 00:00:00 Test Item Value Reference Range Interpretation Comments HEMOGLOBIN A1c (test code = 85957) 10.2 % MICROALBUMIN/CREATININE, RANDOM AND [id number] 00:00:00 Test Item Value Reference Range Interpretation Comments CREATININE, URINE, CONC. (test 253.9 MG/DL code = 2072) ALBUMIN, URINE, RANDOM (test code 1.3 MG/DL = 44029) CALC ALBUMIN/CREAT, RND (test 5 MG/G code = 41233) MICROALBUMIN/CREATININE, RANDOM AND [id number] 00:00:00 Test Item Value Reference Range Interpretation Comments CREATININE, URINE, CONC. (test 253.9 MG/DL code = 2072) ALBUMIN, URINE, RANDOM (test code 1.3 MG/DL = 99548) CALC ALBUMIN/CREAT, RND (test 5 MG/G code = 82865) CBC W/AUTO [id number] 00:00:00 Test Item Value Reference Range Interpretation [...] code = 1015) 450 K/UL CBC W/AUTO [id number] 00:00:00 Test Item Value Reference Range Interpretation [...] code = 1015) 450 K/UL CBC W/AUTO [id number] 00:00:00 Test Item Value Reference Range Interpretation [...] (test code = 1015) 450 K/UL HEMOGLOBIN [id number] 00:00:00 Test Item Value Reference Range Interpretation Comments HEMOGLOBIN A1c (test code = 43311) 7.9 % HEMOGLOBIN [id number] 00:00:00 Test Item Value Reference Range Interpretation Comments HEMOGLOBIN A1c (test code = 37180) 7.9 % HEMOGLOBIN [id number] 00:00:00 Test Item Value Reference Range Interpretation Comments HEMOGLOBIN A1c (test code = 58206) 7.9 % COMPREHENSIVE METABOLIC [id number] 00:00:00 Test Item Value Reference Range Interpretation Comments GLUCOSE (test code = 2217) 130 MG/DL BUN (test code = 2208) 12 MG/DL CREATININE (test code = 2214) 0.91 MG/DL eGFR AMER. (test code 89 ML/MIN/1.73 = 77199) eGFR NON- AMER. (test 77 ML/MIN/1.73 code = 88886) CALC BUN/CREAT (test code = 13 RATIO [...] code = 2219) 14 U/L COMPREHENSIVE METABOLIC [id number] 00:00:00 Test Item Value Reference Range Interpretation Comments GLUCOSE (test code = 2217) 130 MG/DL BUN (test code = 2208) 12 MG/DL CREATININE (test code = 2214) 0.91 MG/DL eGFR AMER. (test code 89 ML/MIN/1.73 = 19674) eGFR NON- AMER. (test 77 ML/MIN/1.73 code = 12654) CALC BUN/CREAT (test code = 13 RATIO 2235) SODIUM (test code = 2231) 139 MEQ/L POTASSIUM (test code = 2228) 3.8 MEQ/L CHLORIDE (test code = 2215) 97 MEQ/L CARBON DIOXIDE (test code = 26 MEQ/L 2205) CALCIUM (test code = 2209) 9.1 MG/DL PROTEIN, TOTAL (test code = 7.0 G/DL 2228) ALBUMIN (test code = 220) 4.0 G/DL CALC GLOBULIN (test code = 3.0 G/DL 2239) CALC A/G RATIO (test code = 1.3 RATIO 2234) BILIRUBIN, TOTAL (test code = 0.1 MG/DL 2206) ALKALINE PHOSPHATASE (test 77 U/L code = 2204) AST (test code = 2218) 15 U/L ALT (test code = 2219) 14 U/L LIPID [id number] 00:00:00 Test Item Value Reference Range Interpretation Comments CHOLESTEROL (test code = 2210) 169 MG/DL TRIGLYCERIDES (test code = 2232) 354 MG/DL HDL CHOLESTEROL (test code = 2220) 45 MG/DL CALC LDL CHOL (test code = 2237) 53 MG/DL RISK RATIO LDL/HDL (test code = 1.18 RATIO 2238) LIPID [id number] 00:00:00 Test Item Value Reference Range Interpretation Comments CHOLESTEROL (test code = 2210) 169 MG/DL TRIGLYCERIDES (test code = 2232) 354 MG/DL HDL CHOLESTEROL (test code = 2220) 45 MG/DL CALC LDL CHOL (test code = 2237) 53 MG/DL RISK RATIO LDL/HDL (test code = 1.18 RATIO 2238) CBC W/AUTO [id number] 00:00:00 Test Item Value Reference Range Interpretation [...] code = 1015) 465 K/UL CBC W/AUTO [id number] 00:00:00 Test Item Value Reference Range Interpretation [...] code = 1015) 465 K/UL CBC W/AUTO [id number] 00:00:00 Test Item Value Reference Range Interpretation [...] (test code = 1015) 465 K/UL HEMOGLOBIN [id number] 00:00:00 Test Item Value Reference Range Interpretation Comments HEMOGLOBIN A1c (test code = 24495) 6.8 % HEMOGLOBIN [id number] 00:00:00 Test Item Value Reference Range Interpretation Comments HEMOGLOBIN A1c (test code = 87164) 6.8 % HEMOGLOBIN [id number] 00:00:00 Test Item Value Reference Range Interpretation Comments HEMOGLOBIN A1c (test code = 70910) 6.8 % [id number] 00:00:00 Test Item Value Reference Range Interpretation Comments TSH (test code = 2821) 1.180 UIU/ML [id number] 00:00:00 Test Item Value Reference Range Interpretation Comments TSH (test code = 2821) 1.180 UIU/ML [id number] 00:00:00 Test Item Value Reference Range Interpretation Comments TSH (test code = 2821) 1.180 UIU/ML LIPID [id number] 00:00:00 Test Item Value Reference Range Interpretation Comments CHOLESTEROL (test code = 2210) 168 MG/DL TRIGLYCERIDES (test code = 2232) 165 MG/DL HDL CHOLESTEROL (test code = 2220) 50 MG/DL CALC LDL CHOL (test code = 2237) 85 MG/DL RISK RATIO LDL/HDL (test code = 1.70 RATIO 2238) LIPID [id number] 00:00:00 Test Item Value Reference Range Interpretation [...] Interpretation Comments HEMOGLOBIN A1c (test code = 90062) 6.8 % HEMOGLOBIN A1c [ADDED][id number] 00:00:00 Test Item Value Reference Range Interpretation Comments HEMOGLOBIN A1c (test code = 16868) 6.8 % HEMOGLOBIN A1c [ADDED]2016-07-27 00:00:00 Test Item Value Reference Range Interpretation Comments HEMOGLOBIN A1c (test code = 95268) 6.8 % PAP TEST, THINPREP, [id number] 00:00:00 Test Item Value Reference Range Interpretation Comments SOURCE: (test code = Cervical/Endocervical 8001) SLIDES: (test code = 1 8011) LMP: (test code = 03/04/2016 8021) SPECIMEN ADEQUACY: (NOTE) (test code = 76703) INTERPRETATION: (test NO EPITHELIAL code = ) ABNORMALITY SEE BELOW LAND ECONOMIST: Brittany (test code = 8101) Kussad,CT(ASCP)IAC LOCATION: (test code (NOTE) = 42583) CPT: (test code = (NOTE) 8140) PAP TEST, THINPREP, [id number] 00:00:00 Test Item Value Reference Range Interpretation Comments SOURCE: (test code = Cervical/Endocervical 8001) SLIDES: (test code = 1 8011) LMP: (test code = 03/04/2016 8021) SPECIMEN ADEQUACY: (NOTE) (test code = 50606) INTERPRETATION: (test NO EPITHELIAL code = 76310) ABNORMALITY SEE BELOW LAND ECONOMIST: Brittany (test code = 8101) Kussad,CT(ASCP)IAC LOCATION: (test code (NOTE) = 81736) CPT: (test code = (NOTE) 8140) HPV HIGH RISK WITH GENOTYPE, [id number] 00:00:00 Test Item Value Reference Range Interpretation Comments HPV HIGH RISK INTERP (test code = NEGATIVE 13171) HPV 16 (test code = 70163) NEGATIVE HPV 18 (test code = 44483) NEGATIVE HPV, HR, OTHER GENOTYPES (test code NEGATIVE = 18462) HPV HIGH RISK WITH GENOTYPE, [id number] 00:00:00 Test Item Value Reference Range Interpretation Comments HPV HIGH RISK INTERP (test code = NEGATIVE 30921) HPV 16 (test code = 56002) NEGATIVE HPV 18 (test code = 35567) NEGATIVE HPV, HR, OTHER GENOTYPES (test code NEGATIVE = 08406) COMPREHENSIVE METABOLIC [id number] 00:00:00 Test Item Value Reference Range Interpretation Comments GLUCOSE (test code = 2217) 104 MG/DL BUN (test code = 2208) 11 MG/DL CREATININE (test code = 2214) 0.72 MG/DL eGFR AMER. (test code 119 ML/MIN/1.73 = 49846) eGFR NON- AMER. (test 103 ML/MIN/1.73 code = 32738) CALC BUN/CREAT (test code = 15 RATIO 2235) SODIUM (test code = 2231) 140 MEQ/L POTASSIUM (test code = 2228) 4.2 MEQ/L CHLORIDE (test code = 2215) 97 MEQ/L CARBON DIOXIDE (test code = 18 MEQ/L 2206) CALCIUM (test code = 2209) 8.7 MG/DL [...] code = 2219) 15 U/L COMPREHENSIVE METABOLIC [id number] 00:00:00 Test Item Value Reference Range Interpretation Comments GLUCOSE (test code = 2217) 104 MG/DL BUN (test code = 2208) 11 MG/DL CREATININE (test code = 2214) 0.72 MG/DL eGFR AMER. (test code 119 ML/MIN/1.73 = 03767) eGFR NON- AMER. (test 103 ML/MIN/1.73 code = 85590) CALC BUN/CREAT (test code = 15 RATIO 2235) SODIUM (test code = 2231) 140 MEQ/L POTASSIUM (test code = 2228) 4.2 MEQ/L CHLORIDE (test code = 2215) 97 MEQ/L CARBON DIOXIDE (test code = 18 MEQ/L 2206) CALCIUM (test code = 2209) 8.7 MG/DL [...] (test code = 2219) 15 U/L LIPID [id number] 00:00:00 Test Item Value Reference Range Interpretation Comments CHOLESTEROL (test code = 2210) 160 MG/DL TRIGLYCERIDES (test code = 2232) 120 MG/DL HDL CHOLESTEROL (test code = 2220) 59 MG/DL CALC LDL CHOL (test code = 2237) 77 MG/DL RISK RATIO LDL/HDL (test code = 1.31 RATIO 2238) LIPID [id number] 00:00:00 Test Item Value Reference Range Interpretation [...] code = 2821) 1.1 UIU/ML CBC W/AUTO [id number] 00:00:00 Test Item Value Reference Range Interpretation [...] code = 1015) 336 K/UL CBC W/AUTO [id number] 00:00:00 Test Item Value Reference Range Interpretation [...] code = 1015) 336 K/UL CBC W/AUTO [id number] 00:00:00 Test Item Value Reference Range Interpretation [...] (test code = 1015) 336 K/UL HEMOGLOBIN [id number] 00:00:00 Test Item Value Reference Range Interpretation Comments HEMOGLOBIN A1c (test code = 22723) 8.3 % HEMOGLOBIN [id number] 00:00:00 Test Item Value Reference Range Interpretation Comments HEMOGLOBIN A1c (test code = 89892) 8.3 % HEMOGLOBIN [id number] 00:00:00 Test Item Value Reference Range Interpretation Comments HEMOGLOBIN A1c (test code = 79407) 8.3 % COMPREHENSIVE METABOLIC [id number] 00:00:00 Test Item Value Reference Range Interpretation Comments GLUCOSE (test code = 2217) 324 MG/DL BUN (test code = 2208) 13 MG/DL CREATININE (test code = 2214) 0.76 MG/DL eGFR AMER. (test code 112 ML/MIN/1.73 = 77925) eGFR NON- AMER. (test 97 ML/MIN/1.73 code = 56495) CALCULATED BUN/CREAT (test 17 RATIO code = [...] code = 2219) 11 U/L COMPREHENSIVE METABOLIC [id number] 00:00:00 Test Item Value Reference Range Interpretation Comments GLUCOSE (test code = 2217) 324 MG/DL BUN (test code = 2208) 13 MG/DL CREATININE (test code = 2214) 0.76 MG/DL eGFR AMER. (test code 112 ML/MIN/1.73 = 37044) eGFR NON- AMER. (test 97 ML/MIN/1.73 code = 39181) CALCULATED BUN/CREAT (test 17 RATIO code = [...] 9 U/L SGPT (ALT) (test code = 221) 11 U/L LIPID [id number] 00:00:00 Test Item Value Reference Range Interpretation Comments CHOLESTEROL (test code = 2210) 139 MG/DL TRIGLYCERIDES (test code = 2232) 202 MG/DL HDL CHOLESTEROL (test code = 2220) 38 MG/DL CALCULATED LDL CHOL (test code = 61 MG/DL 2236) RISK RATIO LDL/HDL (test code = 1.59 RATIO 2238) LIPID [id number] 00:00:00 Test Item Value Reference Range Interpretation Comments CHOLESTEROL (test code = 2210) 139 MG/DL TRIGLYCERIDES (test code = 2232) 202 MG/DL HDL CHOLESTEROL (test code = 2220) 38 MG/DL CALCULATED LDL CHOL (test code = 61 MG/DL 7) RISK RATIO LDL/HDL (test code = 1.59 RATIO 2238) CBC W/AUTO [id number] 00:00:00 Test Item Value Reference Range Interpretation [...] code = 1015) 377 K/UL CBC W/AUTO [id number] 00:00:00 Test Item Value Reference Range Interpretation [...] code = 1015) 377 K/UL CBC W/AUTO [id number] 00:00:00 Test Item Value Reference Range Interpretation [...] (test code = 1015) 377 K/UL HEMOGLOBIN [id number] 00:00:00 Test Item Value Reference Range Interpretation Comments HEMOGLOBIN A1c (test code = 99201) 10.9 % HEMOGLOBIN [id number] 00:00:00 Test Item Value Reference Range Interpretation Comments HEMOGLOBIN A1c (test code = 53566) 10.9 % HEMOGLOBIN [id number] 00:00:00 Test Item Value Reference Range Interpretation Comments HEMOGLOBIN A1c (test code = 85570) 10.9 % [id number] 00:00:00 Test Item Value Reference Range Interpretation Comments TSH (test code = 2821) 0.6 UIU/ML [id number] 00:00:00 Test Item Value Reference Range Interpretation Comments TSH (test code = 2821) 0.6 UIU/ML [id number] 00:00:00 Test Item Value Reference Range Interpretation Comments TSH (test code = 2821) 0.6 UIU/ML"
[2023-02-17 23:21] LABS: Absolute Lymphocytes (CBC) 3.4 K/uL (0.7-4.9); Hematocrit 37.7 % (36.0-45.0); Lymphocytes % 40.2 % (15.3-44.8); MCV 74.8 fL (80-100); MPV 7.2 fL (7.6-11.3); Platelets 404 thou/uL (152-406); RBC Red Blood Cell Count 5.04 M/uL (3.86-4.86)
[2023-02-17 23:24] LABS: Protime INR 0.96
[2023-02-17 23:40] LABS: ALT/SGPT 17 U/L (13-56); AST/SGOT 8 U/L (15-37); Albumin 3.3 g/dL (3.4-5.0); Alkaline Phosphatase 101 U/L (45-117); BUN Blood Urea Nitrogen 19 mg/dL (7-18); Bicarbonate 30 mEq/L (21-32); Bilirubin Total 0.3 mg/dL (0.2-1.0); Creatine Phosphokinase 211 U/L (26-192); Glomerular Filtration Rate 92 ml/min (=/>90); Glucose Level 67 mg/dL (74-106); Magnesium 2.2 mg/dL (1.6-2.4); Potassium 3.4 mEq/L (3.5-5.1); Protein, Total 7.6 g/dL (6.4-8.2); Sodium Level 137 mEq/L (136-145); Troponin High Sensitivity 5.8 pg/mL (<58.9)
[2023-02-17] MEDS ORDERED: KETOROLAC 30 MG/ML INJ ONE (23:46)
[2023-02-17] MEDS ORDERED: NA CHLORIDE 0.9% 1,000 ML ONE (23:46)
[2023-02-17 23:49] LABS: Bilirubin Direct < 0.1 mg/dL (0-0.2); Bilirubin Indirect, Calculated ND mg/dL (0.2-0.8)
[2023-02-17 23:52] LABS: SARS-CoV-2 Antigen Rapid Res Negative (Negative)
[2023-02-18 01:26] LABS: Specific Gravity 1.007 (1.005-1.030); Urine Bacteria None Seen /HPF (<20); Urine Bilirubin NEGATIVE (Negative); Urine Blood Negative (Negative); Urine Clarity Clear (Clear); Urine Color Colorless (Yellow); Urine Glucose NEGATIVE (Negative); Urine Protein NEGATIVE (Negative); Urine RBC None Seen /HPF (None Seen); Urine Urobilinogen Normal (Normal); Urine pH 6.5 (5.0-7.0)
--- NOTE | 2023-02-18 01:44 | EDPHYS ---
Physician Documentation [facility] Name: Ever Cruz Age: 52 yrs Sex: Female : 1970 Arrival Date: 02/17/2023 Time: 22:07 Bed 11 Private MD: ED Physician Armin De La Torre HPI: 02/17 22:55 This 52 yrs old Black Female presents to ER via Ambulatory with complaints of Pain All cp Over. 22:55 pain all over, general weakness. Onset: The symptoms/episode began/occurred 2 day(s) cp ago. Severity of symptoms: in the emergency department the symptoms are unchanged despite home interventions. 22:55 Patient is a 52-year-old female with past medical history significant for cp [id number] diabetes, hypertension, hyperlipidemia who presents to the emergency department with complaints of increasing generalized pain and body aches, generalized weakness has been increasing over the last couple days. Patient reports she was seen by her primary care doctor last week in which she was restarted on her medications for diabetes, cholesterol and hypertension. She was also given 2 vaccinations, 1 in each arm and since has had increasing pain and weakness. Patient denies any fevers, denies any chest and/or abdominal pain. Historical: - Allergies: 22:25 No Known Allergies; rv - PMHx: 22:25 Anemia; Diabetes - NIDDM; Hypercholesterolemia; Hypertension; knee pain; knee pain; rv - PSHx: 22:25 section; gastric sleeve; rv - Immunization history:: Adult Immunizations up to date. - Social history:: Smoking status: Patient denies any tobacco usage or history of. ROS: 23:00 Neuro: Positive for headache, weakness, cp 23:00 Eyes: Negative for injury, pain, redness, and discharge, cp 23:00 Constitutional: Positive for body aches, Negative for chills, fever, poor PO intake, 23:00 ENT: Negative for drainage from ear(s), ear pain, sore throat, difficulty swallowing, difficulty handling secretions, 23:00 Cardiovascular: Negative for chest pain, edema, palpitations, 23:00 Respiratory: Negative for cough, shortness of breath, wheezing, 23:00 Abdomen/GI: Negative for abdominal pain, vomiting, diarrhea, constipation, 23:00 Skin: Negative for rash, 23:00 All other systems are negative, Exam: 23:05 Constitutional: The patient appears in no acute distress, alert, awake, cp non-diaphoretic, non-toxic, well developed, well nourished, obese, uncomfortable, 23:05 Head/Face: Normocephalic, atraumatic. cp 23:05 Eyes: Periorbital structures: appear normal, Pupils: equal, round, and reactive to light and accomodation, Extraocular movements: intact throughout, Conjunctiva: normal, no exudate, no injection, Sclera: no appreciated abnormality, Lids and lashes: appear normal, bilaterally, 23:05 ENT: External ear(s): are unremarkable, Nose: is normal, Mouth: Lips: moist, Oral mucosa: pink and intact, moist, Posterior pharynx: is normal, airway is patent, no erythema, no exudate, 23:05 Neck: ROM/movement: is normal, is supple, without pain, no range of motions limitations, no meningismus, 23:05 Chest/axilla: Inspection: normal, 23:05 Cardiovascular: Rate: normal, Rhythm: regular, Edema: is not appreciated, JVD: is not appreciated, 23:05 Respiratory: the patient does not display signs of respiratory distress, Respirations: normal, no use of accessory muscles, no retractions, labored breathing, is not present, Breath sounds: are clear throughout, no decreased breath sounds, no stridor, no wheezing, 23:05 Abdomen/GI: Inspection: abdomen appears normal, Palpation: abdomen is soft and non-tender, in all quadrants, 23:05 Back: CVA tenderness, is absent, 23:05 Skin: cellulitis, is not appreciated, no rash present. 23:05 Neuro: Orientation: to person, place \T\ time. Mentation: is normal, Motor: moves all fours, strength is normal, Sensation: is normal, 23:35 ECG was reviewed by the Attending Physician. cp Vital Signs: 22:21 BP 125 / 77; Pulse 81; Resp 18; Temp 98; Pulse Ox 99% ; Weight 106.59 kg; Height 5 ft. rv 7 in. ; 23:00 BP 128 / 69; Pulse 66; Resp 17 S; Pulse Ox 98% on R/A; ha1 02/18 02:00 BP 124 / 77; Pulse 75; Resp 18; Pulse Ox 99% on R/A; kl 02/17 22:21 Body Mass Index 36.81 (106.59 kg, 170.18 cm) rv MDM: 02/17 22:27 Patient medically screened. cp 02/18 01:31 ED course: VSS. Discussed results of today's testing and will have patient stop statin cp medication and f/u with pcp. 01:43 Data reviewed: vital signs, nurses notes, lab test result(s), EKG, radiologic studies, cp plain films. 01:43 Consideration of Admission/Observation Escalation of care including cp admission/observation considered. I considered the following discharge prescriptions or medication management in the emergency department Medications were administered in the Emergency Department. See MAR. Independent interpretation of the following test(s) in the Emergency Department EKG: See my EKG interpretation above. Care significantly affected by the following chronic conditions: Diabetes, Hypertension, Obesity. Counseling: I had a detailed discussion with the patient and/or guardian regarding the historical points, exam findings, and any diagnostic results supporting the discharge/admit diagnosis, lab results, radiology results, the need for outpatient follow up, a family practitioner, to return to the emergency department if symptoms worsen or persist or if there are any questions or concerns that arise at home. Response to treatment: the patient's symptoms have mildly improved after treatment, and as a result, I will discharge patient. 02/17 22:49 Order name: Basic Metabolic Panel; Complete Time: 00:04 cp 02/18 00:04 Interpretation: Normal except: K 3.4; GLUC 67; BUN 19. cp 02/17 22:49 Order name: CBC with Diff; Complete Time: 00:04 cp 02/18 00:05 Interpretation: Normal except: RBC 5.04; MCV 74.8; MCH 24.8; MPV 7.2. cp 02/17 22:49 Order name: LFT's; Complete Time: 00:04 cp 02/18 00:05 Interpretation: Normal except: AST 8; ALB 3.3; GLOB 4.3; A/G 0.8. cp 02/17 22:49 Order name: Magnesium; Complete Time: 00:04 cp 02/17 22:49 Order name: PT-INR; Complete Time: 00:04 cp 02/17 22:49 Order name: Troponin HS; Complete Time: 00:04 cp 02/18 01:30 Interpretation: Reviewed. cp 02/17 22:50 Order name: SARS-COV-2 Antigen Rapid; Complete Time: 00:04 02/17 22:50 Order name: Influenza Screen (a \T\ B); Complete Time: 00:04 02/17 22:50 Order name: CK; Complete Time: 00:04 02/18 00:06 Interpretation: Abnormal: CPK 211. 02/18 01:11 Order name: Urinalysis W/Microscopic; Complete Time: 01:30 02/18 01:30 Interpretation: Reviewed. 02/17 22:49 Order name: XRAY Chest (1 view) 02/17 22:49 Order name: EKG; Complete Time: 22:50 02/17 22:49 Order name: Cardiac monitoring; Complete Time: 23:12 02/17 22:49 Order name: EKG - Nurse/Tech; Complete Time: 23:26 02/17 22:49 Order name: IV Saline Lock; Complete Time: 23:12 02/17 22:49 Order name: Labs collected and sent; Complete Time: 23:12 02/17 22:49 Order name: O2 Per Protocol; Complete Time: 23:12 02/17 22:50 Order name: O2 Sat Monitoring; Complete Time: 23:12 02/18 00:08 Order name: PO challenge: sandwich; Complete Time: 00:13 cp EC/17 23:35 Rate is 68 beats/min. Rhythm is regular. CO interval is normal. QRS interval is normal. cp QT interval is normal. T waves are Inverted in lead aVR. Interpreted by me. Reviewed by me. Administered Medications: 23:37 Drug: NS 0.9% IV 1000 ml IV at 500 ml/hr Per protocol; 1000 mL bolus Route: IV; Rate: ha1 500 ml/hr; Site: right antecubital; 23:37 Drug: Ketorolac IVP 15 mg IVP once Route: IVP; Site: right antecubital; ha1 02/18 00:13 Drug: Potassium PO Effervescent Tablet 25 mEq PO once; dissolve in 4 ounces of water or kl juice Route: PO; Disposition Summary: 02/18/23 01:44 Discharge Ordered Notes: Location: Home cp Problem: new cp Symptoms: have improved cp Condition: Stable cp Diagnosis - Acute pain, not elsewhere classified cp - Weakness cp Followup: cp - With: Private Physician - When: 2 - 3 days - Reason: Recheck today's complaints Discharge Instructions: - Discharge Summary Sheet cp - Weakness cp - Form - Excuse from Work, School, or Physical Activity cp - Acute Pain, Adult cp Forms: - Work release form kl - Medication Reconciliation Form cp - Thank You Letter cp - Antibiotic Education cp - Prescription Opioid Use cp - Patient Portal Instructions cp - Leadership Thank You Letter cp Prescriptions: - Diclofenac Sodium 75 mg Oral Tablet Sustained Release - take 1 tablet ORAL route 2 times per day; 30 tablet; Refills: 0, Product cp Selection Permitted Addendum: 02/19/2023 02:27 I was immediately available for consultation during this patient's visit. I did not e c2 personally see the patient or guide the patient's care.. Signatures: Dispatcher [employer] Beena Royal RN RN kl Page, Corey, PA PA cp Servando Lerma RN RN rv Ayala, Heidy, RN RN ha1 Armin De La Torre MD MD ec2 Corrections: (The following items were deleted from the chart) 02/17 22:25 22:25 Allergies: Aspirin; rv rv 02/18 00:05 00:05 AST 8. cp cp 00:08 00:07 Fluid Challenge ordered. cp cp
--- NOTE | 2023-02-18 01:44 | ER ---
Nurse's Notes [facility] Name: Ever Cruz Age: 52 yrs Sex: Female : 1970 Arrival Date: 02/17/2023 Time: 22:07 Bed 11 Private MD: Diagnosis: Acute pain, not elsewhere classified;Weakness Presentation: 02/17 22:21 Chief complaint: Patient states: weak and aching all over in the last two days, a week rv ago had vaccines. denies fever at home. denies abd pain/nausea/diarrhea. eating and drinking normal. Coronavirus screen: At this time, the client does not indicate any symptoms associated with coronavirus-19. Ebola Screen: No symptoms or risks identified at this time. Initial Sepsis Screen: Does the patient meet any 2 criteria? No. Patient's initial sepsis screen is negative. Does the patient have a suspected source of infection? No. Patient's initial sepsis screen is negative. Risk Assessment: Do you want to hurt yourself or someone else? Patient reports no desire to harm self or others. Onset of symptoms was February 17, 2023. 22:21 Method Of Arrival: Ambulatory rv 22:21 Acuity: LORNA 4 rv Triage Assessment: 22:25 General: Appears uncomfortable, Behavior is calm, cooperative. Pain: Complains of pain rv in generalized. Neuro: Level of Consciousness is awake, alert, obeys commands, Oriented to person, place, time, situation. Cardiovascular: Capillary refill < 3 seconds Patient's skin is warm and dry. Respiratory: Airway is patent Respiratory effort is even, unlabored. GI: No signs and/or symptoms were reported involving the gastrointestinal system. : No signs and/or symptoms were reported regarding the genitourinary system. Derm: Skin is intact. Musculoskeletal: Range of motion: limited in left shoulder. Historical: - Allergies: 22:25 No Known Allergies; rv - PMHx: 22:25 Anemia; Diabetes - NIDDM; Hypercholesterolemia; Hypertension; knee pain; knee pain; rv - PSHx: 22:25 section; gastric sleeve; rv - Immunization history:: Adult Immunizations up to date. - Social history:: Smoking status: Patient denies any tobacco usage or history of. Screenin:40 [facility] ED Fall Risk Assessment (Adult) History of falling in the last 3 months, ha1 including since admission No falls in past 3 months (0 pts) Confusion or Disorientation No (0 pts) Intoxicated or Sedated No (0 pts) Impaired Gait No (0 pts) Mobility Assist Device Used No (0 pt) Altered Elimination No (0 pt) Score/Fall Risk Level 0 - 2 = Low Risk Oriented to surroundings, Maintained a safe environment, Hourly rounding (assess needs \T\ fall precautionary measures) done. Abuse screen: Denies threats or abuse. Denies injuries from another. Nutritional screening: No deficits noted. Tuberculosis screening: No symptoms or risk factors identified. Assessment: 23:00 General: Appears comfortable, Behavior is calm, cooperative. Pain: Complains of pain in ha1 generalized body ache Pain does not radiate. Pain currently is 8 out of 10 on a pain scale. Quality of pain is described as tender, Pain began 2-3 days ago. Neuro: Level of Consciousness is awake, alert, obeys commands, Oriented to person, place, time, situation. Cardiovascular: Capillary refill < 3 seconds Patient's skin is warm and dry. Respiratory: Airway is patent Respiratory effort is even, unlabored, Respiratory pattern is regular, symmetrical. Musculoskeletal: Circulation, motion, and sensation intact. Range of motion: intact in all extremities. 02/18 00:17 Reassessment: Patient appears in no apparent distress at this time. Patient is alert, kl oriented x 3, equal unlabored respirations, skin warm/dry/pink. 02:00 Reassessment: pt tolerated sandwich and drink without difficulty. Vital Signs: 02/17 22:21 BP 125 / 77; Pulse 81; Resp 18; Temp 98; Pulse Ox 99% ; Weight 106.59 kg; Height 5 ft. rv 7 in. ; 23:00 BP 128 / 69; Pulse 66; Resp 17 S; Pulse Ox 98% on R/A; ha1 02/18 02:00 BP 124 / 77; Pulse 75; Resp 18; Pulse Ox 99% on R/A; kl 02/17 22:21 Body Mass Index 36.81 (106.59 kg, 170.18 cm) rv ED Course: 02/17 22:09 Patient arrived in ED. [id number] 22:23 Luis Campoverde PA is PHCP. cp 22:23 Armin De La Torre MD is Attending Physician. cp 22:24 Triage completed. rv 22:26 Arm band placed on right wrist. rv 22:30 Patient has correct armband on for positive identification. Placed in gown. Bed in low ha1 position. Call light in reach. Side rails up X 1. Adult w/ patient. 23:25 XRAY Chest (1 view) In Process Unspecified. EDMS 23:26 Basic Metabolic Panel Sent. ha1 23:37 Influenza Screen (a \T\ B) Sent. ha1 23:37 SARS-COV-2 Antigen Rapid Sent. ha1 23:37 CK Sent. ha1 02/18 02:00 No provider procedures requiring assistance completed. IV discontinued, intact, kl bleeding controlled, No redness/swelling at site. Pressure dressing applied. Administered Medications: 02/17 23:37 Drug: NS 0.9% IV 1000 ml IV at 500 ml/hr Per protocol; 1000 mL bolus Route: IV; Rate: ha1 500 ml/hr; Site: right antecubital; 23:37 Drug: Ketorolac IVP 15 mg IVP once Route: IVP; Site: right antecubital; ha1 02/18 00:13 Drug: Potassium PO Effervescent Tablet 25 mEq PO once; dissolve in 4 ounces of water or kl juice Route: PO; Medication: 02/17 23:40 VIS not applicable for this client. ha1 Outcome: 02/18 01:44 Discharge ordered by . cp 02:00 Discharged to home ambulatory, 02:00 Condition: improved 02:00 Discharge instructions given to patient, Instructed on discharge instructions, follow up and referral plans. medication usage, Demonstrated understanding of instructions, follow-up care, medications, Prescriptions given X 1, 02:01 Patient left the ED. kl Signatures: Dispatcher [employer] EDMS Beena Aguilar RN RN kl Page, Corey, PA PA cp Servando Lerma RN RN rv Mayela Vital Heidy RN RN ha1 Corrections: (The following items were deleted from the chart) 02/17 22:25 22:25 Allergies: Aspirin; rv rv
[2023-02-18 02:08] VITALS: TEMP 98
[2023-02-18 02:11] VITALS: BP 124/77; O2SAT 99
--- NOTE | 2023-02-18 20:08 | RAD REPORT ---
EXAM DESCRIPTION: RAD - Chest Single View - 02/17/2023 11:24 pm CLINICAL HISTORY: 52-year-old female with pain all over. TECHNIQUE: Single view, AP portable chest was obtained. COMPARISON: None. FINDINGS: Unremarkable cardiac and mediastinal silhouette. Heart size is normal. Low lung volumes grossly clear without focal opacity, pneumothorax or pleural effusions. The visual ized bones are within normal limits. IMPRESSION: No acute cardiopulmonary abnormalities. Electronically signed by: Zoraida Garza MD 02/17/2023 11:37 PM [employer]LE CONTRACT CLERK Due to temporary technical issues with the PACS/Fluency reporting system, reports are being signed by the in house radiologists without review as a courtesy to insure prompt reporting. The interpreting radiologist is fully responsible for the content of the report.
--- NOTE | 2023-02-22 17:07 | EKG ---
Test Date: 2023-02-17 Test Time: 23:28:10 Bee Worker: FELIBERTO MEASUREMENT RESULTS: Intervals: Rate: 68 MA: 140 QRSD: 100 QT: 396 QTc: 421 [place]: P: 56 MA: 140 QRS: 55 T: 23 INTERPRETIVE STATEMENTS: Normal sinus rhythm Voltage criteria for left ventricular hypertrophy Abnormal ECG Compared to ECG 01/16/2020 23:06:50 Left ventricular hypertrophy now present Electronically Signed On 02-22-23 16:55:32 TUNA [employer] SE[employer]ER by Stas Bee
== END 2023-02-18 02:01 | disposition home or self-care (01) ==
LOC: ER 22:07
DX: R52 Pain, unspecified (principal); R53.1 Weakness; E11.9 Type 2 diabetes mellitus without complications; I10 Essential (primary) hypertension; Z11.52 Encounter for screening for COVID-19
CPT/HCPCS: 93005; 85025; 81001; 80048; 36415; 83735; 82550; 85610; 80076; 84484; 87804 ×2; 71045; 96374; 99284; 87811; J7030